=== PATIENT | male | born 1955 | race Caucasian/White ===

== ENCOUNTER 2020-12-03 23:03 | Inpatient (IN) | payer OTHER, MEDICARE ==
--- NOTE | 2020-12-03 23:13 | ED ---
Chest Pain HPI - General Stated Complaint: Chest Pain Time Seen by Provider: 12/03/20 23:07 Source: RN notes reviewed, old records reviewed Limitations: no limitations - History of Present Illness Initial Comments: This is a 65-year-old male DF for evaluation patient Dese for evaluation regards to chest pain. Patient coming in for chest pain as a transfer for non-ST elevated heart attack. Patient does have elevated troponin at outside facility and transferred to our hospital for further evaluation management. He does have history of [place] chest pain currently MD Complaint: chest pain -: hour(s) Onset: during rest, during exertion Pain Location: substernal, left chest Pain Radiation: LUE Severity: moderate Severity scale (1-10): 6 Quality: tightness, heaviness Consistency: constant Improves With: nothing Worsens With: nothing Anginal Symptoms: dyspnea Other Symptoms: palpitations Treatments Prior to Arrival: none - Related Data Home Medications Medication Instructions Recorded Confirmed Aspirin/Acetaminophen/Caffeine 2 tab PO BID 12/03/20 12/03/20 [Excedrin Extra Strength Caplet] Losartan(Unknown Dose) 1 tab PO DAILY 12/03/20 12/03/20 Pramipexole(Unknown Dose) 0.5 tab PO HS 12/03/20 12/03/20 traMADol HCL 50 mg PO HS 12/03/20 12/03/20 traMADol HCL [Ultram] 100 mg PO DAILY 12/03/20 12/03/20 Allergies Allergy/AdvReac Type Severity Reaction Status Date / Time No Known Allergies Allergy Verified 12/03/20 23:29 Review of Systems ROS Statement: Those systems with pertinent positive or pertinent negative responses have been documented in the HPI. ROS Other: All systems not noted in ROS Statement are negative. General Exam General appearance: alert, in no apparent distress Head exam: Present: atraumatic, normocephalic, normal inspection Eye exam: Present: normal appearance, PERRL, EOMI. Absent: scleral icterus, conjunctival injection, periorbital swelling ENT exam: Present: normal exam, mucous membranes moist Neck exam: Present: normal inspection. Absent: tenderness, meningismus, lymphadenopathy Respiratory exam: Present: normal lung sounds bilaterally. Absent: respiratory distress, wheezes, rales, rhonchi, stridor Cardiovascular Exam: Present: regular rate, normal rhythm, normal heart sounds. Absent: systolic murmur, diastolic murmur, rubs, gallop, clicks GI/Abdominal exam: Present: soft, normal bowel sounds. Absent: distended, tenderness, guarding, rebound, rigid Extremities exam: Present: normal inspection, full ROM, normal capillary refill. Absent: tenderness, pedal edema, joint swelling, calf tenderness Back exam: Present: normal inspection Neurological exam: Present: alert, oriented X3, CN II-XII intact Psychiatric exam: Present: normal affect, normal mood Skin exam: Present: warm, dry, intact, normal color. 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 Critical Care Time Critical Care Time: Yes Total Critical Care Time: 31 Disposition Clinical Impression: Acute non-ST elevation myocardial infarction (NSTEMI) Disposition: ADMITTED IP TO THIS HOSP Condition: Serious Is patient prescribed a controlled substance at d/c from ED?: No Referrals: Jose Valente DO [Primary Care Provider] - 1-2 days
[2020-12-04] MEDS ORDERED: NITROGLYCERIN SL TABS 0.4 MG TAB SUBLINGUAL PRN ×2 (00:50→10:23)
[2020-12-04] MEDS ORDERED: SODIUM CHLORIDE 0.9% 1,000 ML IV STA (00:50)
[2020-12-04] MEDS ORDERED: ONDANSETRON 4 MG/2 ML VIAL IVP STA (00:50)
[2020-12-04] MEDS ORDERED: MORPHINE SULFATE 4 MG/ML SYRINGE IV STA (00:50)
[2020-12-04] MEDS ORDERED: MORPHINE SULFATE 4 MG/ML SYRINGE IV PRN (00:50)
[2020-12-04] MEDS: SODIUM CHLORIDE 0.9% 1,000 ML IV SCH (01:05)
[2020-12-04] MEDS: HEPARIN SOD,PORK IN 0.45% NACL 25,000 UNIT in 0.45% NACL 1 250ML.BAG IV SCH (01:17)
[2020-12-04 01:21] LABS: Basophils % (A) 0 %; Eosinophils % (A) 0 %; HCT 47.4 % (39.0-53.0); HGB 16.4 gm/dL (13.0-17.5); Lymphocytes # (A) 1.6 k/uL (1.0-4.8); Lymphocytes % (A) 15 %; MCH 30.6 pg (25.0-35.0); MCHC 34.5 g/dL (31.0-37.0); MCV 88.6 fL (80.0-100.0); Mean Platelet Volume 7.8; Monocytes # (A) 0.5 k/uL (0-1.0); Monocytes % (A) 5 %; Neutrophils # (A) 8.6 k/uL (1.3-7.7); Neutrophils % (A) 79 %; Platelet Count 257 k/uL (150-450); RBC 5.35 m/uL (4.30-5.90); RDW 13.3 % (11.5-15.5); WBC 10.9 k/uL (3.8-10.6)
[2020-12-04 01:33] LABS: Albumin 4.1 g/dL (3.5-5.0); Calcium 9.1 mg/dL (8.4-10.2); Magnesium 2.4 mg/dL (1.6-2.3); Potassium 3.4 mmol/L (3.5-5.1); Total Bilirubin 0.7 mg/dL (0.2-1.3)
[2020-12-04 01:41] LABS: INR 1.1 (<1.2); Prothrombin Time 11.8 sec (9.0-12.0)
[2020-12-04 01:46] LABS: Partial Thromboplastin Time 194.7 sec (22.0-30.0)
--- NOTE | 2020-12-04 01:54 | XR ---
EXAMINATION TYPE: XR chest 2V DATE OF EXAM: 12/04/2020 COMPARISON: NONE HISTORY: Chest pain TECHNIQUE: 2 views FINDINGS: Heart and mediastinum are normal. Lungs are clear. Diaphragm is normal. Bony thorax is inta ct. There are chest leads. IMPRESSION: Normal chest.
[2020-12-04] MEDS ORDERED: ISOSORBIDE MONONITRATE ER 60 MG TAB.ER.24H PO ONE (03:26)
[2020-12-04] MEDS ORDERED: POTASSIUM CHLORIDE ER 20 MEQ TAB.ER PO STA (03:27)
--- NOTE | 2020-12-04 03:28 | P.HPIM ---
History of Present Illness H&P Date: 12/04/20 Patient is a 65 -year-old male with a PMH of coronary artery disease who presented to the emergency room as a transfer from [facility] where he presented earlier today with complaints of chest pain. The patient reports that he was in his usual state of health until about 7 PM tonight when he was out working on his yard and suddenly developed a substernal heartburn-like sensation. He reports associated shortness of breath and diaphoresis. The pain gradually worsened, 5 out of 10 at maximum intensity, at which time he ended up going to the hospital. He denied experiencing dizziness, fever, chills, cough. Denied lower extremity swelling or pain. Denied weakness, numbness, tingling, visual disturbances, or headaches. He underwent an extensive evaluation in the emergency room laboratory evaluation remarkable for troponin I of 0.29, WBC count of 10.6, hemoglobin 17.5, platelets 291, sodium 137, potassium 3.5, chloride 102, CO2 27, AST 25, AST 37, glucose 131, BUN 12, and creatinine 1.3. EKGs at the facility revealed sinus rhythm at 78 bpm with PVCs along with poor R-wave progression. Chest x-ray revealed upper limit of normal heart size along with coarse bilateral perihilar lung markings. At time of interview, the patient reports that his pain had almost resolved, currently at a 1 out of 10. He denied any other active complaints. Review of systems: Pertinent positives and negatives as discussed in HPI, a complete review of systems was performed and all other systems are negative. Physical examination: General: non toxic, no distress, appears at stated age, obese Derm: no unusual rashes/lesions no unusual ecchymoses, warm, dry Head: atraumatic, normocephalic, symmetric Eyes: EOMI, no lid lag, anicteric sclera, pupils equal round reactive to light ENT: Nose and ears atraumatic, no thrush, no pharyngeal erythema Neck: No thyromegaly, no cervical lymphadenopathy, trachea midline, supple Mouth: no lip lesion, mucus membranes moist Cardiovascular: S1S2 reg, no murmur, positive posterior tibial pulse bilateral, no edema, capillary refill less than 2 seconds Lungs: CTA bilateral, no rhonchi, no rales , no accessory muscle use Abdominal: soft, nontender to palpation, no guarding, no appreciable organomegaly, normal bowel sounds Ext: no gross muscle atrophy, muscle strength 5 out of 5 in all 4 extremities grossly, no contractures, Neuro: CN II-XI grossly intact, light touch intact all 4 extremities, finger to nose within normal limits, Psych: Alert, oriented, appropriate affect Assessment/plan Non-ST elevation MA -Continue with heparin infusion and aspirin -Audiology consult -Trend troponin -Cardiac monitoring -Controlled blood pressure Leukocytosis -Likely due to acute stressor -No signs of active infection at this time Hypokalemia -Replace and monitor DVT prophylaxis -Heparin infusion The patient is admitted with an anticipated greater than 2 midnight stay for evaluation of NSTEMI CODE STATUS: Full Code Discussed with: Patient Anticipated discharge date: 2-[address]: Home A total of 40 minutes was spent on the care of this complex patient more than 50% of the time was spent in counseling and care coordination. Past Medical History Past Medical History: Chest Pain / Angina, Heart Failure, Hypertension, Myocardial Infarction ([place]) Additional Past Medical History / Comment(s): restless leg syndrome Last Myocardial Infarction Date:: "20 years ago" exact year unknown History of Any Multi-Drug Resistant Organisms: None Reported Past Surgical History: Heart Catheterization, Hernia Repair Additional Past Surgical History / Comment(s): multiple foot surgeries Past Anesthesia/Blood Transfusion Reactions: No Reported Reaction Past Psychological History: No Psychological Hx Reported Smoking Status: Vaper Past Alcohol Use History: None Reported Past Drug Use History: None Reported Additional Drug Use History / Comment(s): Use to smoke marijuana. Currently smokes vape everyday. Medications and Allergies Home Medications Medication Instructions Recorded Confirmed Type Aspirin/Acetaminophen/Caffeine 2 tab PO BID 12/03/20 12/03/20 History [Excedrin Extra Strength Caplet] Losartan(Unknown Dose) 1 tab PO DAILY 12/03/20 12/03/20 History Pramipexole(Unknown Dose) 0.5 tab PO HS 12/03/20 12/03/20 History traMADol HCL 50 mg PO HS 12/03/20 12/03/20 History traMADol HCL [Ultram] 100 mg PO DAILY 12/03/20 12/03/20 History Allergies Allergy/AdvReac Type Severity Reaction Status Date / Time No Known Allergies Allergy Verified 12/03/20 23:29 Physical Exam Vitals: Vital Signs Temp Pulse Pulse Resp BP BP Pulse Ox 12/04/20 01:47 98.2 F 62 18 182/94 100 12/04/20 01:30 71 17 158/89 99 12/04/20 01:04 71 16 128/77 100 12/04/20 00:10 69 17 116/73 100 12/03/20 23:22 69 12/03/20 23:04 98.1 F 60 18 145/89 97 Intake and Output 12/03/20 12/03/20 12/04/20 14:59 22:59 06:59 Intake Total 5.167 Balance 5.167 Intake: Intake, IV Titration 5.167 Amount Heparin Sod,Pork in 0.45% 5.167 NaCl 25,000 unit In 0.45 % NaCl 1 250ml.bag @ 8.48 UNITS/KG/HR 10.001 mls/ hr IV .Q[facility]H [facility] Rx#: [id number] Other: Weight 117.934 kg Results CBC & Chem 7: 12/04/20 01:04 12/04/20 01:04 Labs: Abnormal Lab Results - Last 24 Hours (Table) 12/04/20 12/04/20 12/04/20 Range/Units 01:04 01:04 01:04 WBC 10.9 H (3.8-10.6) k/uL Neutrophils # 8.6 H (1.3-7.7) k/uL APTT 194.7 H* (22.0-30.0) sec Potassium 3.4 L (3.5-5.1) mmol/L Glucose 118 H (74-99) mg/dL Magnesium 2.4 H (1.6-2.3) mg/dL Troponin I (0.000-0.034) ng/mL Lipase 414 H (23-300) U/L 12/04/20 Range/Units 01:04 WBC (3.8-10.6) k/uL Neutrophils # (1.3-7.7) k/uL APTT (22.0-30.0) sec Potassium (3.5-5.1) mmol/L Glucose (74-99) mg/dL Magnesium (1.6-2.3) mg/dL Troponin I 0.546 H* (0.000-0.034) ng/mL Lipase (23-300) U/L Thrombosis Risk Factor Assmnt - Choose All That Apply Each Factor Represents 1 point: Acute [place] Each Risk Factor Represents 2 Points: Age 61-74 years Other congenital or acquired thrombophilia - If yes, enter type in comment: No Thrombosis Risk Factor Assessment Total Risk Factor Score: 3 Thrombosis Risk Factor Assessment Level: Moderate Risk
[2020-12-04] MEDS ORDERED: POTASSIUM CHLORIDE ER 20 MEQ TAB.ER PO ONE (04:14)
[2020-12-04 05:37] LABS: HCT 47.1 % (39.0-53.0); HGB 15.6 gm/dL (13.0-17.5); MCH 29.7 pg (25.0-35.0); MCHC 33.2 g/dL (31.0-37.0); MCV 89.4 fL (80.0-100.0); Mean Platelet Volume 7.2; Platelet Count 242 k/uL (150-450); RBC 5.27 m/uL (4.30-5.90); RDW 13.7 % (11.5-15.5)
[2020-12-04] MEDS ORDERED: HEPARIN SODIUM,PORCINE 2,500 UNIT in SODIUM CHLORIDE 0.9% 250 ML IRRIGATION PRN (07:00)
[2020-12-04] MEDS ORDERED: HEPARIN SODIUM,PORCINE 10,000 UNIT in SODIUM CHLORIDE 0.9% 1,000 ML IRRIGATION PRN (07:00)
[2020-12-04] MEDS: METOPROLOL TARTRATE 25 MG TAB PO SCH ×2 (08:47→20:46)
[2020-12-04] MEDS: ATORVASTATIN 80 MG TAB PO SCH (08:47)
--- NOTE | 2020-12-04 09:29 | P.PN ---
Subjective Progress Note Date: 12/04/20 Patient was seen and evaluated by me this morning. He is feeling well and denies any chest pain. He is waiting for cardiology evaluation. No acute events overnight reported by nursing staff. Objective - Vital Signs Vital signs: Vital Signs Temp 98.2 F 12/04/20 01:47 Pulse 62 12/04/20 04:00 Resp 18 12/04/20 04:00 BP 159/85 12/04/20 04:00 Pulse Ox 100 12/04/20 07:38 Intake & Output 12/03/20 12/04/20 12/04/20 18:59 06:59 18:59 Intake Total 9.834 0 Balance 9.834 0 Weight 116.5 kg Intake: Intake, IV Titration 9.834 Amount Heparin Sod,Pork in 0.45% 9.834 NaCl 25,000 unit In 0.45 % NaCl 1 250ml.bag @ 8.48 UNITS/KG/HR 10.001 mls/ hr IV .Q24H [facility] Rx#: [id number] Oral 0 Other: # Voids 1 - Exam General: The patient is awake and alert, in no distress Eye: there is normal conjunctiva bilaterally. Neck: The neck is supple, there is no JVD. Cardiovascular: Normal S1-S2, no S3-S4, no murmurs. Respiratory: Lungs clear to auscultation bilaterally Gastrointestinal: Abdomen is soft, nontender Musculoskeletal: There is no pedal edema. Neurological:. Speech is normal. Skin: Skin is warm and dry - Labs CBC & Chem 7: 12/04/20 04:27 12/04/20 04:27 Labs: Abnormal Lab Results - Last 24 Hours (Table) 12/04/20 12/04/20 12/04/20 Range/Units 01:04 01:04 01:04 WBC 10.9 H (3.8-10.6) k/uL Neutrophils # 8.6 H (1.3-7.7) k/uL APTT 194.7 H* (22.0-30.0) sec Potassium 3.4 L (3.5-5.1) mmol/L Glucose 118 H (74-99) mg/dL Magnesium 2.4 H (1.6-2.3) mg/dL Troponin I (0.000-0.034) ng/mL Lipase 414 H (23-300) U/L 12/04/20 12/04/20 12/04/20 Range/Units 01:04 04:27 04:27 WBC (3.8-10.6) k/uL Neutrophils # (1.3-7.7) k/uL APTT (22.0-30.0) sec Potassium (3.5-5.1) mmol/L Glucose 114 H (74-99) mg/dL Magnesium (1.6-2.3) mg/dL Troponin I 0.546 H* 2.540 H* (0.000-0.034) ng/mL Lipase (23-300) U/L 12/04/20 Range/Units 07:40 WBC (3.8-10.6) k/uL Neutrophils # (1.3-7.7) k/uL APTT (22.0-30.0) sec Potassium (3.5-5.1) mmol/L Glucose (74-99) mg/dL Magnesium (1.6-2.3) mg/dL Troponin I 4.140 H* (0.000-0.034) ng/mL Lipase (23-300) U/L Assessment and Plan Assessment: This is a 65-year-old male with past medical history noted below who presented to the emergency room with chest pain. Patient was evaluated at [facility] and transferred to our facility for cardiology evaluation. Below is a list of his medical problems. 1. Non-ST elevation myocardial infarction, started on full dose aspirin and IV heparin drip. I added Lipitor and metoprolol to his regimen. Awaiting cardiology evaluation. Possible left heart catheterization today. Echocardiogram ordered. 2. History of coronary artery disease, reported by patient on left heart catheterization 15 years ago 3. Essential hypertension, blood pressure within acceptable range. Resume home dose of losartan 50 mg daily tomorrow. Hold off on hydrochlorothiazide for now 4. Hypokalemia, replaced. We will continue to monitor closely 5. Leukocytosis, resolved. mostly reactive
[2020-12-04] MEDS ORDERED: ASPIRIN 325 MG TAB PO STA (10:23)
[2020-12-04] MEDS ORDERED: ALPRAZolam 0.25 MG TAB PO PRN (10:23)
[2020-12-04] MEDS ORDERED: ATORVASTATIN 80 MG TAB PO STA (10:23)
[2020-12-04] MEDS ORDERED: SODIUM CHLORIDE 0.9% 1,000 ML in EMPTY BAG 1 BAG IV ONE (10:23)
[2020-12-04] MEDS ORDERED: IV FLUID CONTINUATION 1,000 ML IV ONE (10:47)
[2020-12-04] MEDS ORDERED: VERAPAMIL 2.5 MG/ML 2 ML AMP ONE (10:48)
[2020-12-04] MEDS ORDERED: HEPARIN SODIUM 1,000 UN/ML (10ML VL) ONE (10:49)
[2020-12-04] MEDS ORDERED: LIDOCAINE 1% INJ 10MG/ML (20 ML MDV) ONE (10:49)
[2020-12-04] MEDS ORDERED: HEPARIN SODIUM,PORCINE 30 ML 30 ML ONE (11:08)
--- NOTE | 2020-12-04 11:13 | P.CRDCN ---
History of Present Illness Consult date: 12/04/20 History of present illness: HISTORY OF PRESENT ILLNESS: This is a 65-year-old male with a past medical history significant for previous myocardial infarction without stenting and hypertension. Patient does not follow with a recreational resort manager (states it has been over 10 years since he saw a recreational resort manager). We have been asked to see the patient in consultation for chest pain. Patient examined at the bedside. Patient initially presented to [facility] secondary to chest pain. Patient reports he was outside working in his yard when he began having chest pain. He describes the pain as feeling like a heartburn sensation. He denies any radiation of the pain. He reports feeling short of breath and diaphoretic at the time. He states he went across the street to his friend who is a gmat tutor who recommended he go to the hospital for further evaluation. At the time of examination, patient denies chest pain or pressure. EKG reveals sinus mechanism with Q waves in inferior leads and septal leads Chest xray negative for acute process Laboratory data: WBC 8.0. Hemoglobin 15.6. Platelet count 242. Sodium 139. Potassium 4.0. BUN 12. Creatinine 1.03. Magnesium 2.4. BNP 198. Troponin 0.546. 2.540. 4.140. Current home cardiac medications include losartan-hydrochlorothiazide 50-12.5mg daily REVIEW OF SYSTEMS: At the time of my exam: CONSTITUTIONAL: Denies fever or chills. HEENT: Denies blurred vision, vision changes, or eye pain. Denies hemoptysis CARDIOVASCULAR: Denies chest pain. Denies orthopnea. Denies PND. Denies palpitations RESPIRATORY: Denies shortness of breath. GASTROINTESTINAL: Denies abdominal pain. Denies nausea or vomiting. HEMATOLOGIC: Denies bleeding disorders. GENITOURINARY: Denies any blood in urine. SKIN: Denies pruitis. Denies rash. PHYSICAL EXAM: VITAL SIGNS: Reviewed. GENERAL: Well-developed in no acute distress. HEENT: Head is normocephalic. Pupils are equal, round. Sclerae anicteric. Mucous membranes of the mouth are moist. Neck supple. No JVD or thyromegaly LUNGS: Respirations even and unlabored. Lungs essentially clear to auscultation bilaterally. HEART: Regular rate and rhythm. S1 and S2 heard. ABDOMEN: Soft. Nondistended. Nontender. EXTREMITIES: Normal range of motion. No clubbing or cyanosis. Peripheral puls es intact. No lower extremity edema NEUROLOGIC: Awake and alert. Oriented x 3. ASSESSMENT: Non-STEMI History of coronary artery disease Hypertension PLAN: Obtain 2-D echo to assess cardiac structure and function Continue heparin drip Continue current cardiac medications including aspirin, Lipitor, metoprolol, and losartan Patient to undergo cardiac cath today with Dr. Glasgow Nurse practitioner note has been reviewed by physician. Signing provider agrees with the documented findings, assessment, and plan of care. Past Medical History Past Medical History: Chest Pain / Angina, Heart Failure, Hypertension, Myocardial Infarction ([place]) Additional Past Medical History / Comment(s): restless leg syndrome Last Myocardial Infarction Date:: "20 years ago" exact year unknown History of Any Multi-Drug Resistant Organisms: None Reported Past Surgical History: Heart Catheterization, Hernia Repair Additional Past Surgical History / Comment(s): multiple foot surgeries Past Anesthesia/Blood Transfusion Reactions: No Reported Reaction Past Psychological History: No Psychological Hx Reported Smoking Status: Vaper Past Alcohol Use History: None Reported Past Drug Use History: None Reported Additional Drug Use History / Comment(s): Use to smoke marijuana. Currently smokes vape everyday. Medications and Allergies Home Medications Medication Instructions Recorded Confirmed Type Aspirin/Acetaminophen/Caffeine 2 tab PO BID 12/03/20 12/03/20 History [Excedrin Extra Strength Caplet] traMADol HCL 50 mg PO HS 12/03/20 12/03/20 History traMADol HCL [Ultram] 100 mg PO DAILY 12/03/20 12/03/20 History Losartan-Hctz 50-12.5 mg [Hyzaar 1 tab PO DAILY 12/04/20 12/04/20 History 50-12.5] Pramipexole [Mirapex] 0.5 mg PO HS 12/04/20 12/04/20 History Allergies Allergy/AdvReac Type Severity Reaction Status Date / Time No Known Allergies Allergy Verified 12/03/20 23:29 Physical Exam Vitals: Vital Signs Temp Pulse Pulse Resp BP BP Pulse Ox 12/04/20 08:00 98.4 F 62 16 130/72 95 12/04/20 07:38 100 12/04/20 04:00 62 18 159/85 98 12/04/20 01:47 98.2 F 62 18 182/94 100 12/04/20 01:30 71 17 158/89 99 12/04/20 01:04 71 16 128/77 100 12/04/20 00:10 69 17 116/73 100 12/03/20 23:22 69 12/03/20 23:04 98.1 F 60 18 145/89 97 Intake and Output 12/03/20 12/04/20 12/04/20 22:59 06:59 14:59 Intake Total 9.834 0 Balance 9.834 0 Intake: Intake, IV Titration 9.834 Amount Heparin Sod,Pork in 0.45% 9.834 NaCl 25,000 unit In 0.45 % NaCl 1 250ml.bag @ 8.48 UNITS/KG/HR 10.001 mls/ hr IV .Q24H [facility] Rx#: [id number] Oral 0 Other: Voiding Method Toilet # Voids 1 Weight 116.5 kg Results 12/04/20 04:27 12/04/20 04:27 Cardiac Enzymes 12/04/20 12/04/20 12/04/20 Range/Units 01:04 01:04 04:27 AST 36 (17-59) U/L Troponin I 0.546 H* 2.540 H* (0.000-0.034) ng/mL 12/04/20 Range/Units 07:40 AST (17-59) U/L Troponin I 4.140 H* (0.000-0.034) ng/mL Coagulation 12/04/20 12/04/20 Range/Units 01:04 10:17 PT 11.8 (9.0-12.0) sec APTT 194.7 H* 24.8 (22.0-30.0) sec CBC 12/04/20 12/04/20 Range/Units 01:04 04:27 WBC 10.9 H 8.0 (3.8-10.6) k/uL RBC 5.35 5.27 (4.30-5.90) m/uL Hgb 16.4 15.6 (13.0-17.5) gm/dL Hct 47.4 47.1 (39.0-53.0) % Plt Count 257 242 (150-450) k/uL Comprehensive Metabolic Panel 12/04/20 12/04/20 Range/Units 01:04 04:27 Sodium 139 139 (137-145) mmol/L Potassium 3.4 L 4.0 (3.5-5.1) mmol/L Chloride 105 105 (98-107) mmol/L Carbon Dioxide 25 28 (22-30) mmol/L BUN 13 12 (9-20) mg/dL Creatinine 1.04 1.03 (0.66-1.25) mg/dL Glucose 118 H 114 H (74-99) mg/dL Calcium 9.1 9.0 (8.4-10.2) mg/dL AST 36 (17-59) U/L ALT 36 (4-49) U/L Alkaline Phosphatase 83 (38-126) U/L Total Protein 7.0 (6.3-8.2) g/dL Albumin 4.1 (3.5-5.0) g/dL Current Medications Generic Name Dose Route Start Last Admin Trade Name Freq PRN Reason Stop Dose Admin Alprazolam 0.25 mg 12/04/20 10:23 Alprazolam 0.25 Mg Tab PO Q6HR PRN Mild Anxiety Alprazolam 0.5 mg 12/04/20 10:23 Alprazolam 0.5 Mg Tab PO Q6HR PRN Moderate Anxiety Aspirin 325 mg 12/05/20 09:00 Aspirin 325 Mg Tab PO DAILY [facility] Atorvastatin Calcium 80 mg 12/04/20 09:00 12/04/20 08:47 Atorvastatin 80 Mg Tab PO 80 mg DAILY [facility] Administration Sodium Chloride 1,000 mls @ 100 mls/hr 12/04/20 00:50 12/04/20 03:51 Saline 0.9% IV 12/04/20 10:49 100 mls/hr .Q10H [facility] Administration Sodium Chloride 1,000 mls @ 20 mls/hr 12/04/20 01:00 12/04/20 01:05 Saline 0.9% IV Not Given .Q24H [facility] Heparin Sodium/Sodium Chloride 250 mls @ 10.001 mls/hr 12/04/20 01:00 12/04/20 04:25 25,000 unit/ Sodium Chloride IV 5.48 units/kg/hr .Q24H [facility] 6.463 mls/hr Titration Protocol 8.48 UNITS/KG/HR Sodium Chloride 1,000 ml/ IV 1,000 mls @ 116.5 mls/hr 12/04/20 10:23 12/04/20 10:32 Solution IV 12/04/20 18:58 116.5 mls/hr .Q8H36M ONE Administration 1 ML/KG/HR Heparin Sodium (Porcine) 10, 1,001 mls @ 999 mls/hr 12/04/20 07:00 000 unit/ Sodium Chloride IRRIGATION 12/04/20 20:00 ONCE PRN INTRA-OP Heparin Sodium (Porcine) 2,500 250.5 mls @ 250 mls/hr 12/04/20 07:00 unit/ Sodium Chloride IRRIGATION 12/04/20 20:00 ONCE PRN INTRA-OP Losartan Potassium 50 mg 12/05/20 09:00 Losartan 50 Mg Tab PO DAILY [facility] Metoprolol Tartrate 25 mg 12/04/20 09:00 12/04/20 08:47 Metoprolol Tartrate 25 Mg Tab PO 25 mg BID [facility] Administration Morphine Sulfate 4 mg 12/04/20 00:50 Morphine Sulfate 4 Mg/Ml Syringe IV Q4HR PRN Chest Pain Nitroglycerin 0.4 mg 12/04/20 00:50 Nitroglycerin Sl Tabs 0.4 Mg Tab SUBLINGUAL Q5M PRN Chest Pain Intake and Output 12/03/20 12/04/20 12/04/20 22:59 06:59 14:59 Intake Total 9.834 0 Balance 9.834 0 Intake: Intake, IV Titration 9.834 Amount Heparin Sod,Pork in 0.45% 9.834 NaCl 25,000 unit In 0.45 % NaCl 1 250ml.bag @ 8.48 UNITS/KG/HR 10.001 mls/ hr IV .Q24H [facility] Rx#: [id number] Oral 0 Other: Voiding Method Toilet # Voids 1 Weight 116.5 kg 12/04/20 04:27 12/04/20 04:27
[2020-12-04] MEDS ORDERED: fentaNYL (PF) 50 MCG/ML 2 ML AMP ONE (11:15)
[2020-12-04] MEDS ORDERED: MIDAZOLAM 2 MG/2 ML VIAL IV ONE (11:17)
[2020-12-04] MEDS ORDERED: fentaNYL (PF) 50 MCG/ML 2 ML AMP IV ONE (11:18)
[2020-12-04] MEDS ORDERED: HYDROmorphone 1 MG/ML 1 ML SYRINGE ONE (11:22)
[2020-12-04] MEDS ORDERED: HYDROmorphone 1 MG/ML 1 ML SYRINGE IVP ONE (11:24)
[2020-12-04] MEDS ORDERED: VERAPAMIL SYRINGE (5 MG/10 ML) INTRAARTER ONE (11:26)
[2020-12-04] MEDS ORDERED: LIDOCAINE 1% INJ 10MG/ML (20 ML MDV) SQ ONE (11:26)
[2020-12-04] MEDS ORDERED: IOPAMIDOL-370 125ML BTL INJ ONE (11:39)
[2020-12-04] MEDS ORDERED: SODIUM CHLORIDE 0.9% 1,000 ML IV SCH (11:45)
[2020-12-04] MEDS ORDERED: RX INFO: IV CONTRAST WAS GIVEN 1 EACH MISC MISCELLANE PRN (11:45)
--- NOTE | 2020-12-04 12:43 | CC ---
CARDIAC CATHETERIZATION REPORT DATE OF SERVICE: 12/04/2020 PERFORMING PHYSICIAN: Ankur Glasgow MD. PROCEDURE PERFORMED: 1. Selective right and left coronary angiogram. 2. Left heart catheterization. INDICATION: This is a 65-year-old gentleman with known history of coronary artery disease as well as hypertension and dyslipidemia who was transferred from [facility] complaining of chest discomfort. He was ruled in for acute [id number] myocardial infarction. Because of that, heart catheterization was advised. APPROACH: Right radial artery. COMPLICATION: None. LEVEL OF SEDATION: Moderate with sedation length of 20 minutes. PROCEDURE DESCRIPTION: After obtaining an informed consent, the patient was brought to the cardiac cardiac cath technician. The right radial artery was cannulated using micropuncture technique, the micropuncture wire passed easily. Then I placed a 6-Georgian sheath at the right radial artery. Selective right and left coronary angiogram performed with JR4 and JL3.5 catheters. Left heart catheterization was performed using 5-Georgian pigtail catheter. The procedure was completed without any complication. Please note that the patient was given 2 mg of verapamil IA at the beginning of the procedure. SELECTIVE CORONARY ANGIOGRAM: 1. The right coronary artery is a large caliber vessel and it is a dominant vessel. The RCA is chronically occluded and fills by collateral from the left coronary system. The RCA is calcified. 2. The left main is a large caliber vessel. The left main is calcified with distal lesion that appeared to be in the range of 30% to 40% was identified mostly on the GRIER cranial view. 3. The left circumflex is a large caliber vessel. The ostial left circumflex has a lesion that appeared to be in the range of 70% to 80%. The proximal circ after that has mild disease only and gives rise into the OM branch which appeared to be angiographically normal. The mid left circumflex has mild disease only and gives rise into a second OM branch which appeared to have mild disease only as well. 4. The ramus intermedius is a large caliber vessel. The ostial ramus has mild disease only. The proximal ramus has also mild to moderate disease and the ramus distally appeared to be angiographically normal. 5. The LAD. The ostial LAD has a lesion appeared to be in the range of 80% to 90% which was identified mostly on the ROMANIAN caudal view. The proximal LAD after that has a thrombotic lesion that appeared to be in the range of 80% to 90% and the mid and distal LAD appeared to be angiographically normal. CONCLUSION: 1. Calcified right and left coronary system. 2. Chronic total occlusion of the RCA. The RCA is a large caliber vessel. The RCA fills by bridging collaterals from the left coronary system. 3. Calcified left main with disease distally that appeared to be in the range of 40% to 50%. 4. Severe disease involving the ostial left circumflex coronary system. 5. Severe disease involving the ostial and proximal left anterior descending artery. POSTPROCEDURE MANAGEMENT: 1. Given the above anatomy, I did advise the patient to be evaluated by cardiothoracic surgeon for evaluation of coronary artery bypass grafting. 2. Continue maximized medical treatment including anti-platelet with aspirin as well as high-intensity statin, as well as anti-ischemic medication. 3. Obtain an echocardiogram to establish LV function. The LV seems dilated under fluoroscopy. 4. Follow up with the patient. MMMARIE / MARVINN: [id number] /
--- NOTE | 2020-12-04 14:59 | P.GSCN ---
<Reji Abdul - Last Filed: 12/04/20 14:59> History of Present Illness Consult date: 12/04/20 Reason for Consult: Symptomatic multivessel coronary artery disease, non-ST elevated myocardial inf arction this admission Requesting physician: Ankur Glasgow History of present illness: This is a 65-year-old gentleman who is followed by the [place] [facility] for his primary care service. The patient reports she does not follow with a medical legal investigator on a regular basis. He has a past medical history significant for hypertension, hyperlipidemia, previous history of myocardial infarction around 20 years ago without any previous stent history, daily marijuana use with vaping and remote history of smoking dependence which he quit over 2 years ago. The patient reports he was outside gardening and developed some chest tightness with a burning sensation which radiated to his jaw. He also reports that with this chest tightness he became diaphoretic. He denies any complaints of nausea, vomiting, orthopnea, shortness of breath, chills, fever, dizziness, presyncope or syncope. He presented to his neighbor's house who is a roof truss machine tender for assistance and was subsequently taken to [facility] for further evaluation and treatment recommendations. The patient was found to have some elevated troponins and was transferred to [facility] to be further evaluated. In the emergency department his WBC count was 8.0, hemoglobin 15.6, platelets 242, sodium 139, potassium 4.0, BUN 12, creatinine 1.03, magnesium 2.4, lipase 414 and he had positive serial troponins as high as 4.140. A 12-lead EKG was completed which showed normal sinus rhythm with Q waves in his inferior leads and septal leads with a heart rate of 65 BPM. A c hest x-ray was also completed which showed a normal chest. Due to the patient's presenting symptoms and elevated troponins a consult was placed to cardiology and the patient was recommended to undergo a cardiac catheterization and 2-D echocardiogram. At this time the 2-D echocardiogram report remains pending. The patient did undergo a cardiac catheterization today which demonstrated a 30- 40% stenosis to his left main coronary artery, a 70-80% stenosis to his ostial circumflex coronary artery, an 80-90% stenosis to his ostial left anterior descending coronary artery, an 80-90% stenosis to his mid left anterior descending coronary artery and a chronically occluded right coronary artery. Th e findings were discussed with the patient by Dr. Glasgow and a consult was placed to Dr. Bruno Driver from cardiothoracic surgery for further evaluation and treatment recommendations including myocardial revascularization surgery. Review of Systems A 14 point review of systems was completed and was negative except as mentioned in the HPI. Past Medical History Past Medical History: Chest Pain / Angina, Heart Failure, Hyperlipidemia, Hypertension, Myocardial Infarction ([place]) Additional Past Medical History / Comment(s): restless leg syndrome Last Myocardial Infarction Date:: "20 years ago" exact year unknown History of Any Multi-Drug Resistant Organisms: None Reported Past Surgical History: Heart Catheterization, Hernia Repair Additional Past Surgical History / Comment(s): multiple foot surgeries, history of colonoscopy with polyp removal Past Anesthesia/Blood Transfusion Reactions: No Reported Reaction Past Psychological History: No Psychological Hx Reported Smoking Status: Vaper Past Alcohol Use History: None Reported Past Drug Use History: Marijuana Additional Drug Use History / Comment(s): Use to smoke marijuana. Currently smokes vape everyday. Medications and Allergies Home Medications Medication Instructions Recorded Confirmed Type Aspirin/Acetaminophen/Caffeine 2 tab PO BID 12/03/20 12/03/20 History [Excedrin Extra Strength Caplet] traMADol HCL 50 mg PO HS 12/03/20 12/03/20 History traMADol HCL [Ultram] 100 mg PO DAILY 12/03/20 12/03/20 History Losartan-Hctz 50-12.5 mg [Hyzaar 1 tab PO DAILY 12/04/20 12/04/20 History 50-12.5] Pramipexole [Mirapex] 0.5 mg PO HS 12/04/20 12/04/20 History Allergies Allergy/AdvReac Type Severity Reaction Status Date / Time No Known Allergies Allergy Verified 12/03/20 23:29 Surgical - Exam Vital Signs Temp Pulse Resp BP Pulse Ox 98.1 F 60 18 145/89 97 12/03/20 23:04 12/03/20 23:04 12/03/20 23:04 12/03/20 23:04 12/03/20 23:04 - General well developed, well nourished, no distress, no pain, obese - Eyes PERRL, normal ocular movement, no icteric - ENT normal pinna, normal nares, normal mucosa, no hearing loss, no congestion, poor [facility] - Neck Neck is supple, no lymphadenopathy. Negative for bruit. no masses, no bruits, trachea midline, no venous distension - Respiratory Lung sounds essentially clear throughout. Respirations are symmetrical and nonlabored. - Cardiovascular Regular rhythm and bradycardic rate. S1 and S2 present, negative for S3, gallop or murmur. No edema present. Peripheral pulses palpable. - Abdomen Abdomen: soft, non tender, bowel sounds (Active bowel sounds to all 4 abdominal quadrants.), no organomegaly, no masses, no guarding, no rigid, no distended - Integumentary no rash, no growths, no abnormal pigmentation - Neurologic Cranial nerves II through XII intact. No focal deficits. normal coordination, normal sensation - Musculoskeletal Moves all 4 extremities with equal strength bilaterally. - Psychiatric oriented to time, oriented to person, oriented to place, speech is normal, memory intact Results - Labs 12/04/20 04:27 12/04/20 04:27 Abnormal Lab Results - Last 24 Hours (Table) 12/04/20 12/04/20 12/04/20 Range/Units 01:04 01:04 01:04 WBC 10.9 H (3.8-10.6) k/uL Neutrophils # 8.6 H (1.3-7.7) k/uL APTT 194.7 H* (22.0-30.0) sec Potassium 3.4 L (3.5-5.1) mmol/L Glucose 118 H (74-99) mg/dL Magnesium 2.4 H (1.6-2.3) mg/dL Troponin I (0.000-0.034) ng/mL Lipase 414 H (23-300) U/L 12/04/20 12/04/20 12/04/20 Range/Units 01:04 04:27 04:27 WBC (3.8-10.6) k/uL Neutrophils # (1.3-7.7) k/uL APTT (22.0-30.0) sec Potassium (3.5-5.1) mmol/L Glucose 114 H (74-99) mg/dL Magnesium (1.6-2.3) mg/dL Troponin I 0.546 H* 2.540 H* (0.000-0.034) ng/mL Lipase (23-300) U/L 12/04/20 Range/Units 07:40 WBC (3.8-10.6) k/uL Neutrophils # (1.3-7.7) k/uL APTT (22.0-30.0) sec Potassium (3.5-5.1) mmol/L Glucose (74-99) mg/dL Magnesium (1.6-2.3) mg/dL Troponin I 4.140 H* (0.000-0.034) ng/mL Lipase (23-300) U/L Diabetes panel 12/04/20 12/04/20 Range/Units 01:04 04:27 Sodium 139 139 (137-145) mmol/L Potassium 3.4 L 4.0 (3.5-5.1) mmol/L Chloride 105 105 (98-107) mmol/L Carbon Dioxide 25 28 (22-30) mmol/L BUN 13 12 (9-20) mg/dL Creatinine 1.04 1.03 (0.66-1.25) mg/dL Glucose 118 H 114 H (74-99) mg/dL Calcium 9.1 9.0 (8.4-10.2) mg/dL AST 36 (17-59) U/L ALT 36 (4-49) U/L Alkaline Phosphatase 83 (38-126) U/L Total Protein 7.0 (6.3-8.2) g/dL Albumin 4.1 (3.5-5.0) g/dL Calcium panel 12/04/20 12/04/20 Range/Units 01:04 04:27 Calcium 9.1 9.0 (8.4-10.2) mg/dL Albumin 4.1 (3.5-5.0) g/dL Pituitary panel 12/04/20 12/04/20 Range/Units 01:04 04:27 Sodium 139 139 (137-145) mmol/L Potassium 3.4 L 4.0 (3.5-5.1) mmol/L Chloride 105 105 (98-107) mmol/L Carbon Dioxide 25 28 (22-30) mmol/L BUN 13 12 (9-20) mg/dL Creatinine 1.04 1.03 (0.66-1.25) mg/dL Glucose 118 H 114 H (74-99) mg/dL Calcium 9.1 9.0 (8.4-10.2) mg/dL Adrenal panel 12/04/20 12/04/20 Range/Units 01:04 04:27 Sodium 139 139 (137-145) mmol/L Potassium 3.4 L 4.0 (3.5-5.1) mmol/L Chloride 105 105 (98-107) mmol/L Carbon Dioxide 25 28 (22-30) mmol/L BUN 13 12 (9-20) mg/dL Creatinine 1.04 1.03 (0.66-1.25) mg/dL Glucose 118 H 114 H (74-99) mg/dL Calcium 9.1 9.0 (8.4-10.2) mg/dL Total Bilirubin 0.7 (0.2-1.3) mg/dL AST 36 (17-59) U/L ALT 36 (4-49) U/L Alkaline Phosphatase 83 (38-126) U/L Total Protein 7.0 (6.3-8.2) g/dL Albumin 4.1 (3.5-5.0) g/dL - Imaging Chest x-ray: report reviewed, image reviewed Additional studies: 2-D echocardiogram and cardiac catheterization films reviewed by Dr. Bruno Driver. Assessment and Plan Assessment: 1. Symptomatic multivessel coronary artery disease 2. Non-ST elevated myocardial infarction this admission 3. History of hypertension 4. History of hyperlipidemia 5. History of coronary artery disease with myocardial infarction around 20 years ago 6. Remote history of nicotine dependence with smoking around 2 years ago 7. Daily marijuana use with vaping 8. Restless leg syndrome Plan: The patient was seen and examined at his bedside on the cardiac stepdown unit. His chart diagnostics were reviewed. The patient was seen and examined by Dr. Bruno Driver from cardiothoracic surgery. Preoperative teaching and pre operative testing has been initiated. Continue to maximize medical therapy with aspirin, statin and beta rj. Once the preoperative testing has been completed and obtained we will calculate an STS risk or which will be discussed with the patient. Once the patient is able to ambulate we will do a 5 m walk test with the patient. Medical management and other comorbidities per primary care service. More recommendations to follow based on patient's clinical course. Thank you Dr. Glasgow for this consult and we'll look for to working with you in the care of this patient. Time with Patient: Greater than 30 <Bruno Driver - Last Filed: 12/04/20 16:24> Surgical - Exam Vital Signs Temp Pulse Resp BP Pulse Ox 98.1 F 60 18 145/89 97 12/03/20 23:04 12/03/20 23:04 12/03/20 23:04 12/03/20 23:04 12/03/20 23:04 Results - Labs 12/04/20 04:27 12/04/20 04:27 Abnormal Lab Results - Last 24 Hours (Table) 12/04/20 12/04/20 12/04/20 Range/Units 01:04 01:04 01:04 WBC 10.9 H (3.8-10.6) k/uL Neutrophils # 8.6 H (1.3-7.7) k/uL APTT 194.7 H* (22.0-30.0) sec Potassium 3.4 L (3.5-5.1) mmol/L Glucose 118 H (74-99) mg/dL Magnesium 2.4 H (1.6-2.3) mg/dL Troponin I (0.000-0.034) ng/mL Lipase 414 H (23-300) U/L Ur Specific [place] (1.001-1.035) Urine Protein (Negative) 12/04/20 12/04/20 12/04/20 Range/Units 01:04 04:27 04:27 WBC (3.8-10.6) k/uL Neutrophils # (1.3-7.7) k/uL APTT (22.0-30.0) sec Potassium (3.5-5.1) mmol/L Glucose 114 H (74-99) mg/dL Magnesium (1.6-2.3) mg/dL Troponin I 0.546 H* 2.540 H* (0.000-0.034) ng/mL Lipase (23-300) U/L Ur Specific [place] (1.001-1.035) Urine Protein (Negative) 12/04/20 12/04/20 Range/Units 07:40 14:50 WBC (3.8-10.6) k/uL Neutrophils # (1.3-7.7) k/uL APTT (22.0-30.0) sec Potassium (3.5-5.1) mmol/L Glucose (74-99) mg/dL Magnesium (1.6-2.3) mg/dL Troponin I 4.140 H* (0.000-0.034) ng/mL Lipase (23-300) U/L Ur Specific [place] 1.050 H (1.001-1.035) Urine Protein Trace H (Negative) Diabetes panel 12/04/20 12/04/20 Range/Units 01:04 04:27 Sodium 139 139 (137-145) mmol/L Potassium 3.4 L 4.0 (3.5-5.1) mmol/L Chloride 105 105 (98-107) mmol/L Carbon Dioxide 25 28 (22-30) mmol/L BUN 13 12 (9-20) mg/dL Creatinine 1.04 1.03 (0.66-1.25) mg/dL Glucose 118 H 114 H (74-99) mg/dL Calcium 9.1 9.0 (8.4-10.2) mg/dL AST 36 (17-59) U/L ALT 36 (4-49) U/L Alkaline Phosphatase 83 (38-126) U/L Total Protein 7.0 (6.3-8.2) g/dL Albumin 4.1 (3.5-5.0) g/dL Calcium panel 12/04/20 12/04/20 Range/Units 01:04 04:27 Calcium 9.1 9.0 (8.4-10.2) mg/dL Albumin 4.1 (3.5-5.0) g/dL Pituitary panel 12/04/20 12/04/20 Range/Units 01:04 04:27 Sodium 139 139 (137-145) mmol/L Potassium 3.4 L 4.0 (3.5-5.1) mmol/L Chloride 105 105 (98-107) mmol/L Carbon Dioxide 25 28 (22-30) mmol/L BUN 13 12 (9-20) mg/dL Creatinine 1.04 1.03 (0.66-1.25) mg/dL Glucose 118 H 114 H (74-99) mg/dL Calcium 9.1 9.0 (8.4-10.2) mg/dL Adrenal panel 12/04/20 12/04/20 Range/Units 01:04 04:27 Sodium 139 139 (137-145) mmol/L Potassium 3.4 L 4.0 (3.5-5.1) mmol/L Chloride 105 105 (98-107) mmol/L Carbon Dioxide 25 28 (22-30) mmol/L BUN 13 12 (9-20) mg/dL Creatinine 1.04 1.03 (0.66-1.25) mg/dL Glucose 118 H 114 H (74-99) mg/dL Calcium 9.1 9.0 (8.4-10.2) mg/dL Total Bilirubin 0.7 (0.2-1.3) mg/dL AST 36 (17-59) U/L ALT 36 (4-49) U/L Alkaline Phosphatase 83 (38-126) U/L Total Protein 7.0 (6.3-8.2) g/dL Albumin 4.1 (3.5-5.0) g/dL Assessment and Plan Assessment: 65 yom w prev h/o [place] presents CP/NSTEMI w elevated trops. Cath shows severe 3 V CAD, echo preserved LV F/(x). Plan CABG this week. D/W patient, all questions [id number], cinformed consent obtained.
[2020-12-04 15:38] LABS: Appearance,Urine Clear (Clear); Bilirubin,Urine Negative (Negative); Blood,Urine Negative (Negative); Color,Urine Yellow; Glucose,Urine (UA) Negative (Negative); Ketones,Urine Negative (Negative); Leukocyte Esterase,Urine Negative (Negative); Nitrite,Urine Negative (Negative); Protein,Urine Trace (Negative); Urobilinogen,Urine <2.0 mg/dL (<2.0)
--- NOTE | 2020-12-04 15:47 | US ---
EXAMINATION TYPE: US carotid duplex BILAT DATE OF EXAM: 12/04/2020 COMPARISON: NONE CLINICAL HISTORY: Pre-Op Cardiac Surgery. Pre-Op CABG EXAM MEASUREMENTS: RIGHT: Peak Systolic Velocity (PSV) cm/sec ----- Right CCA: 107.3 ----- Right ICA: 148.0 ----- Right ECA: 2115.1 ICA/CCA ratio: 1.4 RIGHT: End Diastole cm/sec ----- Right CCA: 30.3 ----- Right ICA: 33.3 ----- Right ECA: 20.0 LEFT: Peak Systolic Velocity (PSV) cm/sec ----- Left CCA: 126.3 ----- Left ICA: 135.0 ----- Left ECA: 208.2 ICA/CCA ratio: 1.1 LEFT: End Diastole cm/sec ----- Left CCA: 28.0 ----- Left ICA: 34.9 ----- Left ECA: 6.0 VERTEBRALS (direction of flow): Right Vertebral: Antegrade Left Vertebral: Antegrade Rhythm: Normal Heterogeneous plaque bilaterally with slightly elevated velocities bilaterally IMPRESSION: No evidence for hemodynamically significant stenosis. Criteria for Assigning % of Stenosis / Diameter reduction (Estimation based on the indirect measurements of the internal carotid artery velocities (ICA PSV). 1. Normal (no stenosis)=ICA PSV < 125 cm/s: ratio < 2.0: ICA EDV<40 cm/s. 2. Less than 50% stenosis=ICA PSV < 125 cm/s: ratio < 2.0: ICA EDV<40 cm/s. 3. 50 to 69% stenosis=ICA PSV of 125 to 230 cm/s: ration 2.0 ? 4.0: ICA EDV 40-100 cm/s. 4. Greater than 70% stenosis to near occlusion= ICA PSV > 230 cm/s: ratio > 4.0: ICA EDV > 100 cm/s. 5. Near occlusion= ICA PSV velocities may be low or undetectable: variable ratio and ICA EDV. 6. Total occlusion=unable to detect flow.
[2020-12-04] MEDS: ALPRAZolam 0.5 MG TAB PO PRN (17:01)
--- NOTE | 2020-12-04 18:31 | ECHOF ---
Referral Reason:elevoponin MEASUREMENTS -------- HEIGHT: 182.9 cm WEIGHT: 117.9 kg BP: 159/85 IVSd: 1.4 cm (0.6 - 1.1) LVIDd: 4.2 cm (3.9 - 5.3) LVPWd: 1.4 cm (0.6 - 1.1) EDV(Teich): 80 ml IVSs: 1.6 cm LVIDs: 3.3 cm LVPWs: 1.6 cm %IVS Thck: 16 % ESV(Teich): 44 ml EF(Teich): 45 % %FS: 22 % SV(Teich): 36 ml LALs A4C: 4.8 cm LAAs A4C: 16.8 cm LAESV A-L A4C: 50 ml LAESV MOD A4C: 46 ml LALs A2C: 5.3 cm LAAs A2C: 19.8 cm LAESV A-L A2C: 63 ml LAESV MOD A2C: 60 ml LAESV(A-L): 59 ml LAESV Index (A-L): 24.66 ml/m Ao Diam: 3.0 cm (2.0 - 3.7) LA Diam: 4.2 cm (2.7 - 3.8) AV Cusp: 1.8 cm (1.5 - 2.6) EPSS: 0.2 cm MV E Arthur: 0.64 m/s MV DecT: 292 ms MV Dec Levy: 2.2 m/s MV A Arthur: 0.96 m/s MV E/A Ratio: 0.66 MV PHT: 85 ms TR Vmax: 1.24 m/s TR maxP.16 mmHg RAP: 5.00 mmHg RVSP: 11.16 mmHg MV EF SLOPE: 75.40 mm/s (70 - 150) MV EXCURSION: 21.48 mm (> 18.000) FINDINGS -------- Sinus rhythm. This was a technically adequate study. The left ventricular size is normal. There is moderate concentric left ventricular hypertrophy. O verall left ventricular systolic function is normal with, an EF between 55 - 60 %. Basal inferior L V wall motion is akinetic. Basal inferoseptal LV wall motion is akinetic. The right ventricle is normal in size. Normal LA size by volume 22+/-6 ml/m2. The right atrial size is normal. The aortic valve is trileaflet, and appears structurally normal. No aortic stenosis or regurgitation. Mild mitral regurgitation is present. Mild tricuspid regurgitation present. Right ventricular systolic pressure is normal at < 35 mmHg. There is no pulmonic regurgitation present. There is no pericardial effusion. CONCLUSIONS -------- 1. The left ventricular size is normal. 2. There is moderate concentric left ventricular hypertrophy. 3. Overall left ventricular systolic function is normal with, an EF between 55 - 60 %. 4. Basal inferior LV wall motion is akinetic. 5. Basal inferoseptal LV wall motion is akinetic. 6. The right ventricle is normal in size. 7. Normal LA size by volume 22+/-6 ml/m2. 8. The right atrial size is normal. 9. The aortic valve is trileaflet, and appears structurally normal. No aortic stenosis or regurgitati on. 10. Mild mitral regurgitation is present. 11. Mild tricuspid regurgitation present. 12. There is no pericardial effusion. INSIDE SALES TRAINER: Cherelle Massey RDCS
[2020-12-04 18:58] LABS: Chol/HDL Ratio 7.08; LDL Cholesterol,Calculated 122.4 mg/dL (0.0-131.0); VLDL Calculation 23.6 mg/dL (5.00-40.00)
[2020-12-04 19:18] LABS: Hemoglobin A1C 5.7 % (4.0-6.0)
[2020-12-04 20:36] LABS: Hepatitis A Antibody IgM Non-Reactive (Non-Reactive); Hepatitis B Core IgM Non-Reactive (Non-Reactive); Hepatitis B Surface Antigen Non-Reactive (Non-Reactive); Hepatitis C IgG Antibody Non-Reactive (Non-Reactive)
[2020-12-04] MEDS: MUPIROCIN 2% OINT 22 GM TUBE NASAL SCH (22:42)
[2020-12-05] MEDS ORDERED: HEPARIN SODIUM 1,000 UN/ML (10ML VL) IV ONE (00:39)
[2020-12-05] MEDS: SODIUM CHLORIDE 0.9% 1,000 ML IV SCH (05:02)
--- NOTE | 2020-12-05 08:00 | P.PN ---
Subjective Progress Note Date: 12/05/20 Principal diagnosis: Symptomatic multivessel coronary artery disease, NSTEMI this admission. Previous medical history of myocardial infarction approximately 20 years ago without intervention, hypertension, hyperlipidemia, previous tobacco dependence, daily marijuana vaping, restless leg syndrome, remote history of pneumonia as a child. Unvaccinated against Covid. The patient is currently laying in bed in no acute distress on the cardiac stepdown unit. Denies any chest pain or shortness of breath. He has been ambulatory in the hallway without difficulty. Remains on IV heparin. Patient met with Dr. Driver yesterday with plans for CABG on , no new questions at this time. Patient does express anxiety about pending surgery, no other new concerns. Objective - Vital Signs Vital signs: Vital Signs Temp 98.6 F 12/04/20 20:00 Pulse 63 12/05/20 04:00 Resp 18 12/05/20 04:00 BP 177/83 12/05/20 04:00 Pulse Ox 97 12/05/20 04:00 Intake & Output 12/04/20 12/05/20 12/05/20 18:59 06:59 18:59 Intake Total 623.696 61.006 Output Total 1160 Balance 623.696 -1098.994 Weight 118 kg Intake: IV 300 Intake, IV Titration 83.696 61.006 Amount Heparin Sod,Pork in 0.45% 83.696 61.006 NaCl 25,000 unit In 0.45 % NaCl 1 250ml.bag @ 8.48 UNITS/KG/HR 10.001 mls/ hr IV .Q24H [facility] Rx#: [id number] Oral 240 Output: Urine 1160 Other: Voiding Method Toilet # Voids 2 3 - Exam CONSTITUTIONAL: Appears comfortable, cooperative, no acute distress RESPIRATORY: Lungs sounds diminished bilaterally. Respirations even, nonlabored. Currently on room air with oxygen saturation 97%. Able to achieve 2000 mL on incentive spirometry. Strong cough. CARDIOVASCULAR: S1, S2 present. Regular rate and rhythm, sinus rhythm on telemetry. Sternum stable. Palpable peripheral pulses bilaterally. No edema present. No calf pain or tenderness noted. GASTROINTESTINAL: Abdomen soft, nontender, nondistended. Active bowel sounds present 4 quadrants. Tolerating diet. GENITOURINARY: Continues to void INTEGUMENTARY: Skin is warm and dry with evidence of good perfusion. NEUROLOGIC: Cranial nerves II through XII intact MUSKULOSKELETAL: Able to move all extremities, strength equal bilaterally, gait normal PSYCHIATRIC: Alert and oriented to person place and time, appropriate affect, intact judgment and insight - Labs CBC & Chem 7: 12/05/20 07:20 12/05/20 07:20 Labs: Abnormal Lab Results - Last 24 Hours (Table) 12/04/20 12/04/20 12/04/20 Range/Units 04:27 07:40 14:50 Troponin I 4.140 H* (0.000-0.034) ng/mL HDL Cholesterol 24.0 L (40.0-60.0) mg/dL Ur Specific [place] 1.050 H (1.001-1.035) Urine Protein Trace H (Negative) Microbiology - Last 24 Hours (Table) 12/04/20 14:50 Nasal Screen MRSA/MSSA - Preliminary Nasal Swab - Imaging and Cardiology Chest x-ray: report reviewed, image reviewed Heart catheterization films, echocardiogram films, EKG, carotid Dopplers, pulmonary function test reviewed Assessment and Plan Assessment: 1. Symptomatic multivessel coronary artery disease, NSTEMI this admission 2. History of myocardial infarction approximately 20 years ago without intervention 3. Hypertension 4. Hyperlipidemia, cholesterol 170, LDL 122 5. Previous tobacco dependence, FEV1 50% predicted 6. Daily marijuana vaping 7. Restless leg syndrome 8. Remote history of pneumonia as a child Plan: 1. Continue to maximize medical therapy with aspirin, statin, beta rj therapy 2. Encourage incentive spirometry use 3. Increase activity, ambulate as tolerated 4. Dr. Gilbert consulted for pulmonology clearance 5. Will calculate STS risk score and discuss with patient 6. Our plan is for off-pump myocardial revascularization with left internal mammary artery, endoscopic vein harvest, possible left radial artery harvest, possible left atrial appendage ligation on , 12/07/[address] Driver. 7. Continue preoperative teaching 8. Medical management of other comorbidities per primary care service 9. More recommendations to follow Time with Patient: Greater than 30
[2020-12-05 08:02] LABS: Basophils % (A) 0 %; Eosinophils # (A) 0.1 k/uL (0-0.7); Eosinophils % (A) 1 %; HCT 47.9 % (39.0-53.0); HGB 16.3 gm/dL (13.0-17.5); Lymphocytes # (A) 1.8 k/uL (1.0-4.8); Lymphocytes % (A) 20 %; MCH 30.3 pg (25.0-35.0); MCV 89.2 fL (80.0-100.0); Mean Platelet Volume 7.1; Monocytes # (A) 0.7 k/uL (0-1.0); Monocytes % (A) 7 %; Neutrophils # (A) 6.4 k/uL (1.3-7.7); Neutrophils % (A) 69 %; Platelet Count 221 k/uL (150-450); RBC 5.37 m/uL (4.30-5.90); RDW 13.4 % (11.5-15.5); WBC 9.2 k/uL (3.8-10.6)
[2020-12-05 08:10] LABS: Calcium 9.2 mg/dL (8.4-10.2); Potassium 4.1 mmol/L (3.5-5.1)
[2020-12-05] MEDS: HEPARIN SODIUM 1,000 UN/ML (10ML VL) IV PRN ×2 (08:25→17:11)
[2020-12-05] MEDS: METOPROLOL TARTRATE 25 MG TAB PO SCH ×2 (08:25→20:40)
[2020-12-05] MEDS: LOSARTAN 50 MG TAB PO SCH (08:25)
[2020-12-05] MEDS: ASPIRIN 81 MG PO SCH (08:25)
[2020-12-05] MEDS: ATORVASTATIN 80 MG TAB PO SCH (08:25)
[2020-12-05] MEDS: HEPARIN SOD,PORK IN 0.45% NACL 25,000 UNIT in 0.45% NACL 1 250ML.BAG IV SCH (08:33)
[2020-12-05] MEDS: MUPIROCIN 2% OINT 22 GM TUBE NASAL SCH ×2 (08:38→20:41)
[2020-12-05] MEDS ORDERED: ASPIRIN 325 MG TAB PO SCH (09:00)
[2020-12-05] MEDS: traMADol 50 MG TAB PO SCH ×2 (12:25→20:40)
--- NOTE | 2020-12-05 12:31 | P.CNPUL ---
History of Present Illness Consult date: 12/05/20 Requesting physician: Gris Humphrey Reason for consult: chest pain Chief complaint: Multivessel coronary artery disease History of present illness: This is a 65-year-old white male patient with past medical history of a myocardial infarction 20 years ago without intervention, hypertension, hyper lipidemia, previous history of smoking, in remission for last 2 years, does carry [id number] smoking history, currently vapes marijuana. Patient came into the hospital on 12/03/2020 for evaluation of chest pain. Patient came in to this facility as a transfer from an outside facility, he was diagnosed with non-ST elevated myocardial infarction. He had elevated troponins with first, second and third set at 0.546, 2.540, and 4.140. His EKG showed sinus bradycardia, with evidence of a septal infarct and inferior wall infarct of undetermined age. Echocardiogram showed mild concentric LVH, preserved LV function with an EF of 55-60%, basal inferior and inferolateral septal LV wall motion was akinetic. There was no aortic stenosis or regurgitation, and there was mild MR, mild TR, and PA pressure was less than 35 mmHg. Patient had a cardiac catheterization on 12/04/2020 which revealed chronic total occlusion of the RCA, calcified left main with disease distally in the range of 40-50%, severe disease involving the ostial left circumflex, and ostial and proximal LAD. Patient was referred to cardiothoracic surgery for evaluation of coronary artery bypass grafting. In the meantime he is on antiplatelet therapy with aspirin as well as high intensity statin, and he is on heparin infusion per weight-based protocol. Chest x-ray showed normal chest x-ray.patient was seen by Dr. Driver from CT surgery and his surgery is tentatively scheduled for , 12/07/2020. His at bedside FEV1 was in the order of 51% of predicted. He is not oxygen dependent at baseline. He is breathing comfortably. Remains pulse ox is 97%. Review of Systems All systems: negative Constitutional: Denies chills, Denies fever Eyes: denies blurred vision, denies pain Ears, nose, mouth and throat: Denies headache, Denies sore throat Cardiovascular: Reports chest pain, Denies shortness of breath Respiratory: Reports dyspnea, Denies cough Gastrointestinal: Denies abdominal pain, Denies diarrhea, Denies nausea, Denies vomiting Musculoskeletal: Denies myalgias Integumentary: Denies pruritus, Denies rash Neurological: Denies numbness, Denies weakness Psychiatric: Denies anxiety, Denies depression Endocrine: Denies fatigue, Denies weight change Past Medical History Past Medical History: Chest Pain / Angina, Heart Failure, Hyperlipidemia, Hyp ertension, Myocardial Infarction (MS) Additional Past Medical History / Comment(s): restless leg syndrome Last Myocardial Infarction Date:: "20 years ago" exact year unknown History of Any Multi-Drug Resistant Organisms: None Reported Past Surgical History: Heart Catheterization, Hernia Repair Additional Past Surgical History / Comment(s): multiple foot surgeries, history of colonoscopy with polyp removal Past Anesthesia/Blood Transfusion Reactions: No Reported Reaction Past Psychological History: No Psychological Hx Reported Smoking Status: Vaper Past Alcohol Use History: None Reported Past Drug Use History: Marijuana Additional Drug Use History / Comment(s): Use to smoke marijuana. Currently smokes vape everyday. Medications and Allergies Home Medications Medication Instructions Recorded Confirmed Type Aspirin/Acetaminophen/Caffeine 2 tab PO BID 12/03/20 12/03/20 History [Excedrin Extra Strength Caplet] traMADol HCL 50 mg PO HS 12/03/20 12/03/20 History traMADol HCL [Ultram] 100 mg PO DAILY 12/03/20 12/03/20 History Losartan-Hctz 50-12.5 mg [Hyzaar 1 tab PO DAILY 12/04/20 12/04/20 History 50-12.5] Pramipexole [Mirapex] 0.5 mg PO HS 12/04/20 12/04/20 History Allergies Allergy/AdvReac Type Severity Reaction Status Date / Time No Known Allergies Allergy Verified 12/03/20 23:29 Physical Exam Vitals: Vital Signs Temp Pulse Resp BP Pulse Ox 12/05/20 08:00 98.5 F 67 16 168/83 97 12/05/20 04:00 63 18 177/83 97 12/05/20 00:00 58 L 18 99/51 97 12/04/20 20:00 98.6 F 61 16 124/64 97 12/04/20 16:45 59 L 16 117/69 97 12/04/20 15:45 98.1 F 59 L 16 120/65 97 12/04/20 14:45 62 16 109/57 96 12/04/20 14:00 62 12/04/20 13:45 52 L 16 116/65 97 12/04/20 13:15 55 L 16 118/69 97 12/04/20 12:45 98.4 F 57 L 16 118/70 97 12/04/20 12:30 98.3 F 54 L 16 118/69 94 L Intake and Output 12/04/20 12/05/20 12/05/20 22:59 06:59 14:59 Intake Total 43.302 61.006 213.464 Output Total 160 1000 Balance -116.698 -938.994 213.464 Intake: Intake, IV Titration 43.302 61.006 95.464 Amount Heparin Sod,Pork in 0.45% 43.302 61.006 95.464 NaCl 25,000 unit In 0.45 % NaCl 1 250ml.bag @ 8.48 UNITS/KG/HR 10.001 mls/ hr IV .Q24H [facility] Rx#: [id number] Oral 118 Output: Urine 160 1000 Other: Voiding Method Toilet # Voids 1 3 1 Weight 118 kg GENERAL EXAM: Alert, very pleasant, 65-year-old white male on room air, with a pulse ox of 97% comfortable in no apparent distress. HEAD: Normocephalic/atraumatic. EYES: Normal reaction of pupils, equal size. Conjunctiva pink, sclera white. NOSE: Clear with pink turbinates. THROAT: No erythema or exudates. NECK: No masses, no JVD, no thyroid enlargement, no adenopathy. CHEST: No chest wall deformity. Symmetrical expansion. LUNGS: Equal air entry with no crackles, wheeze, rhonchi or dullness. CVS: Regular rate and rhythm, normal S1 and S2, no gallops, no murmurs, no rubs ABDOMEN: Soft, nontender. No hepatosplenomegaly, normal bowel sounds, no guarding or rigidity. EXTREMITIES: No clubbing, no edema, no cyanosis, 2+ pulses and upper and lower extremities. MUSCULOSKELETAL: Muscle strength and tone normal. SPINE: No scoliosis or deformity SKIN: No rashes CENTRAL NERVOUS SYSTEM: Alert and oriented -3. No focal deficits, tone is normal in all 4 extremities. PSYCHIATRIC: Alert and oriented -3. Appropriate affect. Intact judgment and insight. Results - Laboratory Findings CBC and BMP: 12/05/20 07:20 12/05/20 07:20 PT/INR, D-dimer PT 11.8 sec (9.0-12.0) 12/04/20 01:04 INR 1.1 (<1.2) 12/04/20 01:04 Abnormal lab findings: Abnormal Labs 12/04/20 12/04/20 12/04/20 01:04 01:04 01:04 WBC 10.9 H Neutrophils # 8.6 H APTT 194.7 H* Potassium 3.4 L Glucose 118 H Magnesium 2.4 H Troponin I HDL Cholesterol Lipase 414 H Ur Specific [place] Urine Protein 12/04/20 12/04/20 12/04/20 01:04 04:27 04:27 WBC Neutrophils # APTT Potassium Glucose 114 H Magnesium Troponin I 0.546 H* 2.540 H* HDL Cholesterol Lipase Ur Specific [place] Urine Protein 12/04/20 12/04/20 12/04/20 04:27 07:40 14:50 WBC Neutrophils # APTT Potassium Glucose Magnesium Troponin I 4.140 H* HDL Cholesterol 24.0 L Lipase Ur Specific [place] 1.050 H Urine Protein Trace H 12/05/20 12/05/20 07:20 07:20 WBC Neutrophils # APTT 34.4 H Potassium Glucose 106 H Magnesium Troponin I HDL Cholesterol Lipase Ur Specific [place] Urine Protein - Diagnostic Findings Chest x-ray: report reviewed, image reviewed Additional studies: Echocardiogram reviewed, EKG reviewed, cardiac catheterization report reviewed, carotid Doppler results revealed Assessment and Plan Plan: Assessment: #1. Symptomatic multivessel coronary artery disease, awaiting coronary artery bypass grafting on 12/07/2020 #2. Acute non-ST elevated myocardial infarction #3. Previous history of myocardial infarction 20 years ago #4. Hypertension #5. Hyper lipidemia #6. Previous history of tobacco dependence, in remission for last 2 years, carries a 91-[id number]-[id number] smoking history #7. Marijuana vaping, bedside FEV1 50% of predicted #8. Restless leg syndrome #9. Remote history of pneumonia Plan: FEV1 reviewed Chest x-ray is without abnormal findings Breathing comfortably Vitals signs are stable We'll continue to follow Surgery is tentatively scheduled for 12/07/[address] Driver We'll follow the patient in the postoperative period and in the ICU I performed a history & physical examination of the patient and discussed their management with my nurse practitioner, Elise Zelaya. I reviewed the nurse practitioner's note and agree with the documented findings and plan of care. Lung sounds are positive for clear breath sounds. The findings and the impression was discussed with the patient. I attest to the documentation by the nurse practitioner. Time with Patient: Greater than 30
--- NOTE | 2020-12-05 12:38 | P.PN ---
Subjective Progress Note Date: 12/05/20 HISTORY OF PRESENT ILLNESS: This is a 65-year-old male with a past medical history significant for previous myocardial infarction without stenting and hypertension. Patient does not follow with a marketing planner (states it has been over 10 years since he saw a marketing planner). We have been asked to see the patient in consultation for chest pain. Patient examined at the bedside. Patient initially presented to [facility] secondary to chest pain. Patient reports he was outside working in his yard when he began having chest pain. He describes the pain as feeling like a heartburn sensation. He denies any radiation of the pain. He reports feeling short of breath and diaphoretic at the time. He states he went across the street to his friend who is a online communications specialist who recommended he go to the hospital for further evaluation. At the time of examination, patient denies chest pain or pressure. EKG reveals sinus mechanism with Q waves in inferior leads and septal leads Chest xray negative for acute process Laboratory data: WBC 8.0. Hemoglobin 15.6. Platelet count 242. Sodium 139. Potassium 4.0. BUN 12. Creatinine 1.03. Magnesium 2.4. BNP 198. Troponin 0. 546. 2.540. 4.140. Current home cardiac medications include losartan-hydrochlorothiazide 50-12.5mg daily 12/05/2020 Patient underwent cardiac catheterization yesterday with Dr. Akers revealing calcified right and left coronary system. Chronic total occlusion of the RCA. RCA fills by bridging collaterals from the left coronary system. Calcified left main with disease distally that appeared to be in the range of 40-50%. Severe disease involving the ostial left circumflex. Severe disease involving the ostial and proximal left anterior descending artery. Cardiothoracic surgery was consulted and have evaluated the patient. They are planning for CABG tentatively on . Patient remains on IV heparin. Patient denies having any chest pain or pressure today. Denies shortness of breath. Echocardiogram completed revealed ejection fraction 55-60%, basal inferior and basal inferior septal LV wall akinesis. PHYSICAL EXAM: VITAL SIGNS: Reviewed. GENERAL: Well-developed in no acute distress. HEENT: Head is normocephalic. Pupils are equal, round. Sclerae anicteric. Mucous membranes of the mouth are moist. Neck supple. No JVD or thyromegaly LUNGS: Respirations even and unlabored. Lungs essentially clear to auscultation bilaterally. HEART: Regular rate and rhythm. S1 and S2 heard. ABDOMEN: Soft. Nondistended. Nontender. EXTREMITIES: Normal range of motion. No clubbing or cyanosis. Peripheral pulses intact. No lower extremity edema. Right radial cath site with pulse present. NEUROLOGIC: Awake and alert. Oriented x 3. ASSESSMENT: Non-STEMI, status post cardiac catheterization revealing multivessel CAD History of coronary artery disease Hypertension PLAN: Continue current cardiac medications CTS following. Plan for CABG on Further recommendations pending patient's course Nurse practitioner note has been reviewed by physician. Signing provider agrees with the documented findings, assessment, and plan of care. Objective - Vital Signs Vital signs: Vital Signs Temp 98.5 F 12/05/20 08:00 Pulse 72 12/05/20 12:00 Resp 16 12/05/20 12:00 BP 154/86 12/05/20 12:00 Pulse Ox 95 12/05/20 12:00 Intake & Output 12/04/20 12/05/20 12/05/20 18:59 06:59 18:59 Intake Total 623.696 61.006 213.464 Output Total 1160 Balance 623.696 -1098.994 213.464 Weight 118 kg Intake: IV 300 Intake, IV Titration 83.696 61.006 95.464 Amount Heparin Sod,Pork in 0.45% 83.696 61.006 95.464 NaCl 25,000 unit In 0.45 % NaCl 1 250ml.bag @ 8.48 UNITS/KG/HR 10.001 mls/ hr IV .Q24H [facility] Rx#: [id number] Oral 240 118 Output: Urine 1160 Other: Voiding Method Toilet Toilet # Voids 2 3 1 - Labs CBC & Chem 7: 12/05/20 07:20 12/05/20 07:20 Labs: Abnormal Lab Results - Last 24 Hours (Table) 12/04/20 12/04/20 12/05/20 Range/Units 04:27 14:50 07:20 APTT (22.0-30.0) sec Glucose 106 H (74-99) mg/dL HDL Cholesterol 24.0 L (40.0-60.0) mg/dL Ur Specific [place] 1.050 H (1.001-1.035) Urine Protein Trace H (Negative) 12/05/20 Range/Units 07:20 APTT 34.4 H (22.0-30.0) sec Glucose (74-99) mg/dL HDL Cholesterol (40.0-60.0) mg/dL Ur Specific [place] (1.001-1.035) Urine Protein (Negative) Microbiology - Last 24 Hours (Table) 12/04/20 14:50 Nasal Screen MRSA/MSSA - Preliminary Nasal Swab
--- NOTE | 2020-12-05 13:27 | P.PN ---
Subjective Progress Note Date: 12/05/20 Patient is doing well today. He denies any chest pain. He is undergoing extensive evaluation for possible CABG on . Patient does not have any concerns. Objective - Vital Signs Vital signs: Vital Signs Temp 98.5 F 12/05/20 08:00 Pulse 72 12/05/20 12:00 Resp 16 12/05/20 12:00 BP 154/86 12/05/20 12:00 Pulse Ox 95 12/05/20 12:00 Intake & Output 12/04/20 12/05/20 12/05/20 18:59 06:59 18:59 Intake Total 623.696 61.006 213.464 Output Total 1160 Balance 623.696 -1098.994 213.464 Weight 118 kg Intake: IV 300 Intake, IV Titration 83.696 61.006 95.464 Amount Heparin Sod,Pork in 0.45% 83.696 61.006 95.464 NaCl 25,000 unit In 0.45 % NaCl 1 250ml.bag @ 8.48 UNITS/KG/HR 10.001 mls/ hr IV .Q24H [facility] Rx#: [id number] Oral 240 118 Output: Urine 1160 Other: Voiding Method Toilet Toilet # Voids 2 3 1 - Exam General: The patient is awake and alert, in no distress Eye: there is normal conjunctiva bilaterally. Neck: The neck is supple, there is no JVD. Cardiovascular: Normal S1-S2, no S3-S4, no murmurs. Respiratory: Lungs clear to auscultation bilaterally Gastrointestinal: Abdomen is soft, nontender Musculoskeletal: There is no pedal edema. Neurological:. Speech is normal. Skin: Skin is warm and dry - Labs CBC & Chem 7: 12/05/20 07:20 12/05/20 07:20 Labs: Abnormal Lab Results - Last 24 Hours (Table) 12/04/20 12/04/20 12/05/20 Range/Units 04:27 14:50 07:20 APTT (22.0-30.0) sec Glucose 106 H (74-99) mg/dL HDL Cholesterol 24.0 L (40.0-60.0) mg/dL Ur Specific [place] 1.050 H (1.001-1.035) Urine Protein Trace H (Negative) 12/05/20 Range/Units 07:20 APTT 34.4 H (22.0-30.0) sec Glucose (74-99) mg/dL HDL Cholesterol (40.0-60.0) mg/dL Ur Specific [place] (1.001-1.035) Urine Protein (Negative) Microbiology - Last 24 Hours (Table) 12/04/20 14:50 Nasal Screen MRSA/MSSA - Preliminary Nasal Swab Assessment and Plan Assessment: This is a 65-year-old male with past medical history noted below who presented to the emergency room with chest pain. Patient was [facility] at [facility] and transferred to our facility for cardiology evaluation. Below is a list of his medical problems. 1. Multivessel coronary artery disease noted on left heart catheterization involving total occlusion of the RCA, severe disease involving the ostial left circumflex and proximal LAD. Patient was seen and evaluated by cardiac surgery is currently undergoing extensive evaluation for possible CABG on . 2. Non-ST elevation myocardial infarction, on presentation, treated with op timal medical management. Echocardiogram showed EF of 55-60%. No significant valvular abnormalities. Basal inferior left ventricular wall is akinetic 3. Essential hypertension, blood pressure within acceptable range. Resume home dose of losartan 50 mg daily tomorrow. Discontinue hydrochlorothiazide 4. Hypokalemia, replaced. We will continue to monitor closely 5. Leukocytosis, resolved. Resolved. mostly reactive Today, I reviewed his medication list and lab work results. Patient is undergoing extensive preoperative evaluation for possible CABG on . Appreciate continuous improvement consultant's recommendations.
[2020-12-05 14:40] LABS: Chol/HDL Ratio 5.1; LDL Cholesterol,Calculated 102.6 mg/dL (0.0-131.0); VLDL Calculation 20.4 mg/dL (5.00-40.00)
[2020-12-05] MEDS: PRAMIPEXOLE 0.5 MG TAB PO SCH (20:41)
[2020-12-05] MEDS: ALPRAZolam 0.5 MG TAB PO PRN (20:45)
[2020-12-06] MEDS: HEPARIN SOD,PORK IN 0.45% NACL 25,000 UNIT in 0.45% NACL 1 250ML.BAG IV SCH (02:50)
[2020-12-06] MEDS: SODIUM CHLORIDE 0.9% 1,000 ML IV SCH (02:51)
[2020-12-06 07:49] LABS: HCT 49.4 % (39.0-53.0); HGB 16.9 gm/dL (13.0-17.5); MCH 30.5 pg (25.0-35.0); MCHC 34.1 g/dL (31.0-37.0); MCV 89.4 fL (80.0-100.0); Mean Platelet Volume 7.3; Platelet Count 233 k/uL (150-450); RBC 5.53 m/uL (4.30-5.90); RDW 13.4 % (11.5-15.5); WBC 6.6 k/uL (3.8-10.6)
[2020-12-06 08:09] LABS: Calcium 9.2 mg/dL (8.4-10.2); Potassium 4.2 mmol/L (3.5-5.1)
[2020-12-06] MEDS ORDERED: MD COMMUNICATION TO PHARMACY 1 EACH MISC PO ONE (08:31)
--- NOTE | 2020-12-06 08:31 | P.PN ---
Subjective Progress Note Date: 12/06/20 Principal diagnosis: Symptomatic multivessel coronary artery disease, NSTEMI this admission. Previous medical history of myocardial infarction approximately 20 years ago without intervention, hypertension, hyperlipidemia, previous tobacco dependence, daily marijuana vaping, restless leg syndrome, remote history of pneumonia as a child. Unvaccinated against Covid. The patient is currently laying in bed in no acute distress on the cardiac stepdown unit. Denies any chest pain or shortness of breath. He has been ambulatory in the hallway without difficulty. Remains on IV heparin. No new questions, anticipates surgery tomorrow. Objective - Vital Signs Vital signs: Vital Signs Temp 98.1 F 12/06/20 04:00 Pulse 60 12/06/20 04:00 Resp 16 12/06/20 04:00 BP 151/88 12/06/20 04:00 Pulse Ox 96 12/06/20 04:00 Intake & Output 12/05/20 12/06/20 12/06/20 18:59 06:59 18:59 Intake Total 838.802 123.546 240 Output Total 200 640 Balance 638.802 -516.454 240 Weight 118.1 kg Intake: Intake, IV Titration 362.802 123.546 Amount Heparin Sod,Pork in 0.45% 212.802 123.546 NaCl 25,000 unit In 0.45 % NaCl 1 250ml.bag @ 8.48 UNITS/KG/HR 10.001 mls/ hr IV .Q24H [facility] Rx#: [id number] Sodium Chloride 0.9% 1, 150 000 ml In Empty Bag 1 bag @ 1 ML/KG/HR 116.5 mls/ hr IV .Q8H36M [facility] Rx#: [id number] Oral 476 240 Output: Urine 200 640 Other: Voiding Method Toilet Toilet # Voids 1 2 - Exam CONSTITUTIONAL: Appears comfortable, cooperative, no acute distress RESPIRATORY: Lungs sounds diminished bilaterally. Respirations even, nonlabored. Currently on room air with oxygen saturation 97%. Able to achieve 3000 mL on incentive spirometry. Strong cough. CARDIOVASCULAR: S1, S2 present. Regular rate and rhythm, sinus rhythm on telemetry. Sternum stable. Palpable peripheral pulses bilaterally. No edema present. No calf pain or tenderness noted. GASTROINTESTINAL: Abdomen soft, nontender, nondistended. Active bowel sounds present 4 quadrants. Tolerating diet. GENITOURINARY: Continues to void INTEGUMENTARY: Skin is warm and dry with evidence of good perfusion. NEUROLOGIC: Cranial nerves II through XII intact MUSKULOSKELETAL: Able to move all extremities, strength equal bilaterally, gait normal PSYCHIATRIC: Alert and oriented to person place and time, appropriate affect, intact judgment and insight - Labs CBC & Chem 7: 12/06/20 06:47 12/06/20 06:47 Labs: Abnormal Lab Results - Last 24 Hours (Table) 12/05/20 12/05/20 12/05/20 Range/Units 07:20 15:43 22:46 APTT 37.8 H 37.4 H (22.0-30.0) sec Glucose (74-99) mg/dL HDL Cholesterol 30.0 L (40.0-60.0) mg/dL 12/06/20 12/06/20 Range/Units 06:47 06:47 APTT 66.2 H (22.0-30.0) sec Glucose 106 H (74-99) mg/dL HDL Cholesterol (40.0-60.0) mg/dL Microbiology - Last 24 Hours (Table) 12/04/20 14:50 Nasal Screen MRSA/MSSA - Final Nasal Swab Assessment and Plan Assessment: 1. Symptomatic multivessel coronary artery disease, NSTEMI this admission 2. History of myocardial infarction approximately 20 years ago without intervention 3. Hypertension 4. Hyperlipidemia, cholesterol 170, LDL 122 5. Previous tobacco dependence, FEV1 50% predicted 6. Daily marijuana vaping 7. Restless leg syndrome 8. Remote history of pneumonia as a child Plan: 1. Continue to maximize medical therapy with aspirin, statin, beta rj therapy. IV heparin to be discontinued motion picture photographer to OR tomorrow 2. Encourage incentive spirometry use 3. Increase activity, ambulate as tolerated 4. Dr. Gilbert consulted for pulmonology clearance 5. STS risk score calculated and discussed with patient 6. Our plan is for off-pump myocardial revascularization with left internal mammary artery, endoscopic vein harvest, possible left radial artery harvest, possible left atrial appendage ligation on , 12/07/[address] Driver. NPO after midnight 7. Continue preoperative teaching 8. Medical management of other comorbidities per primary care service 9. More recommendations to follow Time with Patient: Less than 30
[2020-12-06] MEDS: traMADol 50 MG TAB PO SCH ×2 (08:57→19:54)
[2020-12-06] MEDS: ASPIRIN 81 MG PO SCH (08:57)
[2020-12-06] MEDS: ATORVASTATIN 80 MG TAB PO SCH (08:57)
[2020-12-06] MEDS: LOSARTAN 50 MG TAB PO SCH (08:58)
[2020-12-06] MEDS: METOPROLOL TARTRATE 25 MG TAB PO SCH ×2 (08:58→19:54)
--- NOTE | 2020-12-06 09:29 | P.ARTDOP ---
Arterial Doppler LOWER EXTREMITY ARTERIAL DOPPLER: DATE OF SERVICE: 12/04/2020 Reason for study: Preop CABG. Doppler waveforms: Multiphasic bilaterally throughout. Pulse volume recording: []. Pressure gradients: None. Ankle-brachial indices: Greater than 1 bilaterally. Toe brachial indices: [] on the right, [] on the left Impression: Normal study.
--- NOTE | 2020-12-06 09:31 | P.VSCSTY ---
Greater Saphenous Vein Mapping This is bilateral lower extremity greater saphenous vein mapping. Date of service: 12/04/2020 Vein quality and ultrasound appearance: We see no intraluminal thrombus or obvious wall changes. Vein size in millimeters groin right : 8.1 x 6.3 groin left: 7.7 x 8.0 High thigh right: 5.2 x 5.2 high thigh left: 4.7 x 4.9 Mid thigh right: 3.8 x 3.8 mid thigh left: 4.5 x 4.5 Above-knee right: 3.8 x 4.3 above- knee left: 4.1 x 4.3 Below knee right: 3.2 x 3.8 below-knee left: 2.6 x 2.3 Mid calf right: 3.8 x 3.8 mid calf left: 3.1 x 3.5 Ankle right: 3.8 x 3.9 ankle left: 3.1 x 2.8 Impression: Usable bilateral greater saphenous vein.
--- NOTE | 2020-12-06 12:01 | P.PN ---
Subjective Progress Note Date: 12/06/20 HISTORY OF PRESENT ILLNESS: This is a 65-year-old male with a past medical history significant for previous myocardial infarction without stenting and hypertension. Patient does not follow with a former hand (states it has been over 10 years since he saw a former hand). We have been asked to see the patient in consultation for chest pain. Patient examined at the bedside. Patient initially presented to [facility] secondary to chest pain. Patient reports he was outside working in his yard when he began having chest pain. He describes the pain as feeling like a heartburn sensation. He denies any radiation of the pain. He reports feeling short of breath and diaphoretic at the time. He states he went across the street to his friend who is a inpatient services director who recommended he go to the hospital for further evaluation. At the time of examination, patient denies chest pain or pressure. EKG reveals sinus mechanism with Q waves in inferior leads and septal leads Chest xray negative for acute process Laboratory data: WBC 8.0. Hemoglobin 15.6. Platelet count 242. Sodium 139. Potassium 4.0. BUN 12. Creatinine 1.03. Magnesium 2.4. BNP 198. Troponin 0. 546. 2.540. 4.140. Current home cardiac medications include losartan-hydrochlorothiazide 50-12.5mg daily 12/05/2020 Patient underwent cardiac catheterization yesterday with Dr. Akers revealing calcified right and left coronary system. Chronic total occlusion of the RCA. RCA fills by bridging collaterals from the left coronary system. Calcified left main with disease distally that appeared to be in the range of 40-50%. Severe disease involving the ostial left circumflex. Severe disease involving the ostial and proximal left anterior descending artery. Cardiothoracic surgery was consulted and have evaluated the patient. They are planning for CABG tentatively on . Patient remains on IV heparin. Patient denies having any chest pain or pressure today. Denies shortness of breath. Echocardiogram completed revealed ejection fraction 55-60%, basal inferior and basal inferior septal LV wall akinesis. 12/06/2020 Patient examined this morning at the bedside. Patient denies chest pain or pressure. Denies SOB. Vital signs are stable. He remains on IV heparin. PHYSICAL EXAM: VITAL SIGNS: Reviewed. GENERAL: Well-developed in no acute distress. HEENT: Head is normocephalic. Pupils are equal, round. Sclerae anicteric. Mucous membranes of the mouth are moist. Neck supple. No JVD or thyromegaly LUNGS: Respirations even and unlabored. Lungs essentially clear to auscultation bilaterally. HEART: Regular rate and rhythm. S1 and S2 heard. ABDOMEN: Soft. Nondistended. Nontender. EXTREMITIES: Normal range of motion. No clubbing or cyanosis. Peripheral pulses intact. No lower extremity edema. Right radial cath site with pulse pre sent. NEUROLOGIC: Awake and alert. Oriented x 3. ASSESSMENT: Non-STEMI, status post cardiac catheterization revealing multivessel CAD History of coronary artery disease Hypertension PLAN: Continue current cardiac medications CTS following. Plan for CABG on Further recommendations pending patient's course Nurse practitioner note has been reviewed by physician. Signing provider agrees with the documented findings, assessment, and plan of care. Objective - Vital Signs Vital signs: Vital Signs Temp 96.3 F L 12/06/20 08:00 Pulse 58 L 12/06/20 08:00 Resp 16 12/06/20 08:00 BP 145/85 12/06/20 08:00 Pulse Ox 96 12/06/20 08:00 Intake & Output 12/05/20 12/06/20 12/06/20 18:59 06:59 18:59 Intake Total 838.802 123.546 240 Output Total 200 640 400 Balance 638.802 -516.454 -160 Weight 118.1 kg Intake: Intake, IV Titration 362.802 123.546 Amount Heparin Sod,Pork in 0.45% 212.802 123.546 NaCl 25,000 unit In 0.45 % NaCl 1 250ml.bag @ 8.48 UNITS/KG/HR 10.001 mls/ hr IV .Q24H [facility] Rx#: [id number] Sodium Chloride 0.9% 1, 150 000 ml In Empty Bag 1 bag @ 1 ML/KG/HR 116.5 mls/ hr IV .Q8H36M [facility] Rx#: [id number] Oral 476 240 Output: Urine 200 640 400 Other: Voiding Method Toilet Toilet Toilet # Voids 1 2 - Labs CBC & Chem 7: 12/06/20 06:47 12/06/20 06:47 Labs: Abnormal Lab Results - Last 24 Hours (Table) 12/05/20 12/05/20 12/05/20 Range/Units 07:20 15:43 22:46 APTT 37.8 H 37.4 H (22.0-30.0) sec Glucose (74-99) mg/dL HDL Cholesterol 30.0 L (40.0-60.0) mg/dL Crossmatch 12/06/20 12/06/20 12/06/20 Range/Units 06:47 06:47 06:47 APTT 66.2 H (22.0-30.0) sec Glucose 106 H (74-99) mg/dL HDL Cholesterol (40.0-60.0) mg/dL Crossmatch See Detail Microbiology - Last 24 Hours (Table) 12/04/20 14:50 Nasal Screen MRSA/MSSA - Final Nasal Swab
[2020-12-06] MEDS: MUPIROCIN 2% OINT 22 GM TUBE NASAL SCH ×2 (12:25→19:54)
--- NOTE | 2020-12-06 13:11 | P.PN ---
Subjective Progress Note Date: 12/06/20 Principal diagnosis: Multivessel coronary artery disease This is a 65-year-old white male patient with past medical history of a myocardial infarction 20 years ago without intervention, hypertension, hyperlipidemia, previous history of smoking, in remission for last 2 years, does carry [id number] smoking history, currently vapes marijuana. Patient came into the hospital on 12/03/2020 for evaluation of chest pain. Patient came in to this facility as a transfer from an outside facility, he was diagnosed with non-ST elevated myocardial infarction. He had elevated troponins with first, second and third set at 0.546, 2.540, and 4.140. His EKG showed sinus bradycardia, with evidence of a septal infarct and inferior wall infarct of undetermined age. Echocardiogram showed mild concentric LVH, preserved LV function with an EF of 55-60%, basal inferior and inferolateral septal LV wall motion was akinetic. There was no aortic stenosis or regurgitation, and there was mild MR, mild TR, and PA pressure was less than 35 mmHg. Patient had a cardiac catheterization on 12/04/2020 which revealed chronic total occlusion of the RCA, calcified left main with disease distally in the range of 40-50%, severe disease involving the ostial left circumflex, and ostial and proximal LAD. Patient was referred to cardiothoracic surgery for evaluation of coronary artery bypass grafting. In the meantime he is on antiplatelet therapy with aspirin as well as high intensity statin, and he is on heparin infusion per weight-based protocol. Chest x-ray showed normal chest x-ray.patient was seen by Dr. Driver from CT surgery and his surgery is tentatively scheduled for , 12/07/2020. His at bedside FEV1 was in the order of 51% of predicted. He is not oxygen dependent at baseline. He is breathing comfortably. Remains pulse ox is 97%. The patient is seen today 12/06/2020 in follow-up on the selective care unit. He is currently resting comfortably in bed. Awake and alert in no acute distress. Denies any chest pain, palpitations, lightheadedness or dizziness. N o worsening shortness of breath, cough or congestion. He remains on a heparin drip. White count 6.6. Hemoglobin 16.9. Platelets 233. Sodium 140. Potassium 4.2. Creatinine 1.03. Asencio virus not detected. Plan is for CABG tomorrow. Objective - Vital Signs Vital signs: Vital Signs Temp 96.3 F L 12/06/20 08:00 Pulse 63 12/06/20 12:00 Resp 16 12/06/20 12:00 BP 164/93 12/06/20 12:00 Pulse Ox 97 12/06/20 12:00 Intake & Output 12/05/20 12/06/20 12/06/20 18:59 06:59 18:59 Intake Total 838.802 123.546 240 Output Total 200 640 400 Balance 638.802 -516.454 -160 Weight 118.1 kg Intake: Intake, IV Titration 362.802 123.546 Amount Heparin Sod,Pork in 0.45% 212.802 123.546 NaCl 25,000 unit In 0.45 % NaCl 1 250ml.bag @ 8.48 UNITS/KG/HR 10.001 mls/ hr IV .Q24H [facility] Rx#: [id number] Sodium Chloride 0.9% 1, 150 000 ml In Empty Bag 1 bag @ 1 ML/KG/HR 116.5 mls/ hr IV .Q8H36M [facility] Rx#: [id number] Oral 476 240 Output: Urine 200 640 400 Other: Voiding Method Toilet Toilet Toilet # Voids 1 2 - Exam GENERAL EXAM: Alert, very pleasant 65-year-old gentleman, on room air, comfortable in no apparent distress. HEAD: Normocephalic. EYES: Normal reaction of pupils, equal size. NOSE: Clear with pink turbinates. THROAT: No erythema or exudates. NECK: No masses, no JVD. CHEST: No chest wall deformity. LUNGS: Equal air entry with no crackles, wheeze, rhonchi or dullness. CVS: S1 and S2 normal with no audible murmur, regular rhythm. ABDOMEN: No hepatosplenomegaly, normal bowel sounds, no guarding or rigidity. SPINE: No scoliosis or deformity SKIN: No rashes CENTRAL NERVOUS SYSTEM: No focal deficits, tone is normal in all 4 extremities. EXTREMITIES: There is no peripheral edema. No clubbing, no cyanosis. Peripheral pulses are intact. - Labs CBC & Chem 7: 12/06/20 06:47 12/06/20 06:47 Labs: Abnormal Lab Results - Last 24 Hours (Table) 12/05/20 12/05/20 12/05/20 Range/Units 07:20 15:43 22:46 APTT 37.8 H 37.4 H (22.0-30.0) sec Glucose (74-99) mg/dL HDL Cholesterol 30.0 L (40.0-60.0) mg/dL Crossmatch 12/06/20 12/06/20 12/06/20 Range/Units 06:47 06:47 06:47 APTT 66.2 H (22.0-30.0) sec Glucose 106 H (74-99) mg/dL HDL Cholesterol (40.0-60.0) mg/dL Crossmatch See Detail Microbiology - Last 24 Hours (Table) 12/04/20 14:50 Nasal Screen MRSA/MSSA - Final Nasal Swab Assessment and Plan Assessment: 1 Symptomatic multivessel coronary artery disease, awaiting coronary artery bypass grafting on 12/07/2020 2 Acute non-ST elevated myocardial infarction 3 Previous history of myocardial infarction 20 years ago 4 Hypertension 5 Hyper lipidemia 6 Previous history of tobacco dependence, 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 Ofelia Rivers from the pulmonary standpoint Working well with the incentive spirometer We'll follow in the immediate postop period I, the cosigning physician, performed a history & physical examination of the patient. Lungs sounds are clear. Maintaining good O2 saturations in the 90s on room air. I discussed the assessment and plan of care with my nurse practi Zeny rodas. I attest to the above note as dictated by her.
--- NOTE | 2020-12-06 16:17 | P.PN ---
Subjective Progress Note Date: 12/06/20 Patient is doing well today. He denies any chest pain. He is undergoing extensive evaluation for CABG on . Patient does not have any concerns. Objective - Vital Signs Vital signs: Vital Signs Temp 96.3 F L 12/06/20 08:00 Pulse 63 12/06/20 12:00 Resp 16 12/06/20 12:00 BP 164/93 12/06/20 12:00 Pulse Ox 97 12/06/20 12:00 Intake & Output 12/05/20 12/06/20 12/06/20 18:59 06:59 18:59 Intake Total 838.802 123.546 480 Output Total 200 640 400 Balance 638.802 -516.454 80 Weight 118.1 kg Intake: Intake, IV Titration 362.802 123.546 Amount Heparin Sod,Pork in 0.45% 212.802 123.546 NaCl 25,000 unit In 0.45 % NaCl 1 250ml.bag @ 8.48 UNITS/KG/HR 10.001 mls/ hr IV .Q24H [facility] Rx#: [id number] Sodium Chloride 0.9% 1, 150 000 ml In Empty Bag 1 bag @ 1 ML/KG/HR 116.5 mls/ hr IV .Q8H36M [facility] Rx#: [id number] Oral 476 480 Output: Urine 200 640 400 Other: Voiding Method Toilet Toilet Toilet # Voids 1 2 - Exam General: The patient is awake and alert, in no distress Eye: there is normal conjunctiva bilaterally. Neck: The neck is supple, there is no JVD. Cardiovascular: Normal S1-S2, no S3-S4, no murmurs. Respiratory: Lungs clear to auscultation bilaterally Gastrointestinal: Abdomen is soft, nontender Musculoskeletal: There is no pedal edema. Neurological:. Speech is normal. Skin: Skin is warm and dry - Labs CBC & Chem 7: 12/06/20 06:47 12/06/20 06:47 Labs: Abnormal Lab Results - Last 24 Hours (Table) 12/05/20 12/06/20 12/06/20 Range/Units 22:46 06:47 06:47 APTT 37.4 H (22.0-30.0) sec Glucose 106 H (74-99) mg/dL Crossmatch See Detail 12/06/20 Range/Units 06:47 APTT 66.2 H (22.0-30.0) sec Glucose (74-99) mg/dL Crossmatch Microbiology - Last 24 Hours (Table) 12/04/20 14:50 Nasal Screen MRSA/MSSA - Final Nasal Swab Assessment and Plan Assessment: This is a 65-year-old male with past medical history noted below who presented to the emergency room with chest pain. Patient was evaluated at [facility] and transferred to our facility for cardiology evaluation. Below is a list of his medical problems. 1. Multivessel coronary artery disease noted on left heart catheterization involving total occlusion of the RCA, severe disease involving the ostial left circumflex and proximal LAD. Patient was seen and evaluated by cardiac surgery is currently undergoing extensive evaluation for possible CABG on . 2. Non-ST elevation myocardial infarction, on presentation, treated with optimal medical management. Echocardiogram showed EF of 55-60%. No significant valvular abnormalities. Basal inferior left ventricular wall is akinetic 3. Essential hypertension, blood pressure within acceptable range. Resume home dose of losartan 50 mg daily tomorrow. Discontinue hydrochlorothiazide 4. Hypokalemia, replaced. We will continue to monitor closely 5. Leukocytosis, resolved. Resolved. mostly reactive Today, I reviewed his medication list and lab work results. Patient is undergoing extensive preoperative evaluation for CABG on . Appreciate consultant education's recommendations.
[2020-12-06] MEDS: PRAMIPEXOLE 0.5 MG TAB PO SCH (19:54)
[2020-12-07] MEDS: HEPARIN SOD,PORK IN 0.45% NACL 25,000 UNIT in 0.45% NACL 1 250ML.BAG IV SCH (00:04)
[2020-12-07] MEDS: SODIUM CHLORIDE 0.9% 1,000 ML IV SCH (00:04)
[2020-12-07] MEDS ORDERED: METOPROLOL TARTRATE 12.5 MG TAB PO ONE (05:00)
[2020-12-07] MEDS ORDERED: PAPAVERINE 360 MG in SODIUM CHLORIDE 0.9% 90 ML IV ONE ×2 (05:00→13:32)
[2020-12-07] MEDS ORDERED: CLEVIDIPINE BUTYRATE 25 MG in EMPTY BAG 1 BAG IV SCH ×2 (05:00→16:26)
[2020-12-07] MEDS ORDERED: NITROGLYCERIN-D5W PMX 50 MG in DEXTROSE/WATER 1 250ML.BAG IV SCH (05:00)
[2020-12-07] MEDS ORDERED: TRANEXAMIC ACID 2,000 MG in SODIUM CHLORIDE 0.9% 80 ML IV ONE (05:00)
[2020-12-07] MEDS ORDERED: DILTIAZEM 125 MG in SODIUM CHLORIDE 0.9% 100 ML IV SCH ×2 (05:00→16:26)
[2020-12-07] MEDS ORDERED: LACTATED RINGERS 1,000 ML IV SCH (05:00)
[2020-12-07] MEDS ORDERED: CARDIOPLEGIC SOLN (K+ 16 MEQ/L 1,000 ML with SOD BICARB SYR 8.4% (1 MEQ/ML) 20 ML, LIDO... PERFUSION NR ×3 (05:00)
[2020-12-07] MEDS ORDERED: PHENYLEPHRINE 10 MG/ML VIAL IV ONE (05:00)
[2020-12-07] MEDS ORDERED: SODIUM BICARB 8.4% 50 ML SYR (1 MEQ/ML) IV ONE (05:00)
[2020-12-07] MEDS ORDERED: ALBUMIN HUMAN 25% 50 ML in EMPTY BAG 1 BAG IVPB ONE (05:00)
[2020-12-07] MEDS ORDERED: PHENYLEPHRINE 40 MG in SODIUM CHLORIDE 0.9% 250 ML IV ONE (05:00)
[2020-12-07] MEDS ORDERED: HEPARIN SODIUM,PORCINE 5,000 UNIT in SODIUM CHLORIDE 0.9% 500 ML 500 ML IV ONE (05:00)
[2020-12-07] MEDS ORDERED: MANNITOL 25% 12.5 GM/50 ML VIAL IV ONE ×2 (05:00)
[2020-12-07] MEDS ORDERED: NOREPINEPHRINE 4 MG in SODIUM CHLORIDE 0.9% 250 ML IV SCH (05:00)
[2020-12-07] MEDS ORDERED: INSULIN REGULAR 100 UNIT in SODIUM CHLORIDE 0.9% 100 ML IV SCH ×2 (05:00→16:26)
[2020-12-07] MEDS ORDERED: ASPIRIN 325 MG TAB PO ONE (05:00)
[2020-12-07] MEDS ORDERED: ceFAZolin 1,000 MG in SODIUM CHLORIDE 0.9% IRRIGATIO 1,000 ML IRRIGATION ONE (05:00)
[2020-12-07] MEDS ORDERED: NITROGLYCERIN-D5W PMX 25 MG/250 ML BTL IV ONE (05:00)
[2020-12-07] MEDS ORDERED: CALCIUM CHLORIDE 100 MG/ML 10 ML SYRINGE IVP ONE (05:00)
[2020-12-07] MEDS ORDERED: PROTAMINE SULFATE 10 MG/ML 25 ML VIAL IV ONE (05:00)
[2020-12-07] MEDS ORDERED: CHLORHEXIDINE GLUCONATE 15 ML CUP MUCOUS MEM ONE (05:00)
[2020-12-07] MEDS ORDERED: MAGNESIUM SULFATE SYG 4.06 MEQ/ML SYRINGE IV ONE (05:00)
[2020-12-07] MEDS ORDERED: HEPARIN SODIUM 1,000 UN/ML (10ML VL) IV ONE (05:00)
[2020-12-07] MEDS ORDERED: ATORVASTATIN 10 MG TAB PO ONE (05:00)
[2020-12-07] MEDS ORDERED: PROTAMINE SULFATE 250 MG in EMPTY BAG 1 BAG IV ONE (05:00)
[2020-12-07] MEDS ORDERED: ALBUMIN HUMAN 5% 500 ML in EMPTY BAG 1 BAG IVPB ONE ×6 (05:00)
[2020-12-07 07:45] LABS: HCT 51.6 % (39.0-53.0); HGB 17.4 gm/dL (13.0-17.5); MCH 30.3 pg (25.0-35.0); MCHC 33.7 g/dL (31.0-37.0); MCV 89.9 fL (80.0-100.0); Mean Platelet Volume 7.2; Platelet Count 246 k/uL (150-450); RBC 5.74 m/uL (4.30-5.90); RDW 13.5 % (11.5-15.5); WBC 7.6 k/uL (3.8-10.6)
[2020-12-07 07:50] LABS: Albumin 3.9 g/dL (3.5-5.0); Calcium 9.5 mg/dL (8.4-10.2); Potassium 4.6 mmol/L (3.5-5.1); Total Bilirubin 0.8 mg/dL (0.2-1.3); Total Protein 6.9 g/dL (6.3-8.2)
[2020-12-07] MEDS: ASPIRIN 81 MG PO SCH (08:24)
[2020-12-07] MEDS: METOPROLOL TARTRATE 25 MG TAB PO SCH (08:31)
[2020-12-07] MEDS: LOSARTAN 50 MG TAB PO SCH (08:31)
[2020-12-07] MEDS: ATORVASTATIN 80 MG TAB PO SCH (08:31)
[2020-12-07] MEDS: ALPRAZolam 0.5 MG TAB PO PRN (08:33)
[2020-12-07] MEDS ORDERED: IV FLUID CONTINUATION 1,000 ML IV ONE (09:43)
[2020-12-07] MEDS ORDERED: PROTAMINE SULFATE 10 MG/ML 5 ML VIAL IV ONE (10:58)
[2020-12-07] MEDS ORDERED: SUCCINYLCHOLINE CHLORIDE 100 MG/5 ML SYR IV ONE (10:58)
[2020-12-07] MEDS ORDERED: fentaNYL (PF) 50 MCG/ML 50 ML VIAL ONE (10:58)
[2020-12-07] MEDS ORDERED: VECURONIUM 10 MG VIAL IV ONE (10:58)
[2020-12-07] MEDS ORDERED: MIDAZOLAM 2 MG/2 ML VIAL ONE (10:58)
[2020-12-07] MEDS ORDERED: MAGNESIUM SULFATE 4 MEQ/ML 10ML VIAL ONE (10:58)
[2020-12-07] MEDS ORDERED: PROPOFOL 10 MG/ML 20 ML VIAL IV ONE (10:58)
[2020-12-07] MEDS ORDERED: ALBUMIN HUMAN 5% (25gm) 500 ML VIAL IVPB ONE (10:58)
[2020-12-07] MEDS ORDERED: HEPARIN SODIUM,PORCINE 10,000 UNIT/ML 1 ML VIAL ONE (10:58)
[2020-12-07] MEDS ORDERED: NITROGLYCERIN-D5W PMX 50 MG/250 ML BOTTLE IV ONE (10:58)
[2020-12-07] MEDS ORDERED: SODIUM CHLORIDE 0.9% IRRIG 1,000 ML BTL IRRIGATION ONE (10:59)
[2020-12-07 12:04] LABS: ABG Base Excess 0.3 mmol/L; ABG Glucose Whole Blood 95 mg/dL (75-99); ABG HCO3 26 mmol/L (21-25); ABG Hematocrit 50 % (34.0-46.0); ABG Ionized Calcium 4.7 mg/dL (4.5-5.3); ABG Lactic Acid Whole Blood 0.8 mmol/L (0.5-1.6); ABG PCO2 45 mmHg (35-45); ABG PH 7.37 (7.35-7.45); ABG PO2 382 mmHg (83-108); ABG Potassium Whole Blood 4.9 mmol/L (3.4-4.5); ABG Sodium Whole Blood 139 mmol/L (135-146); ABG TCO2 28 mmol/L (19-24)
--- NOTE | 2020-12-07 13:21 | P.ANPRN ---
Procedure Note - Anesthesia - Invasive Line Right Arterial Line Time Out Performed: Yes Date of Procedure: 12/07/20 Location of Patient: PreOp Preparation: Sterile Prep, Sterile Dressing Arterial Line Location: Radial Ultrasound Used: No Purpose - Visualization and Identification of Vasculature: No Needle Guage: 20 Narrative: Informed consent obtained from the patient. Procedure was performed under complete aseptic precautions. The right wrist is slightly extended and placed on a roll of cloth. Radial artery palpated and appeared to have a intact collateral circulation. Front of the wrist was cleaned with ChloraPrep. It was draped and 2 mL of 1% lidocaine was infiltrated and ability into the front of the wrist. A 20-gauge two and half inch Arrow arterial catheter was inserted and a bright red blood/back was noticed. It was connected to the pressure monitoring line and the flashback was confirmed. The line was sutured into the skin. Tegaderm dressing was applied. Patient tolerated the procedure very well with no apparent complications. Right Central Line Time Out Performed: Yes Date of Procedure: 12/07/20 Location of Patient: PreOp Preparation: Sterile Prep, Sterile Dressing Ultrasound Used: Yes Purpose - Visualization and Identification of Vasculature: Yes Image Stored and Saved: Yes Narrative: Informed consent obtained. Central line placement per sterile protocol utilized. Right Internal jugular vein cannulated under aseptic precautions. 3cc 1% lidocaine infiltrated initially after cleaning with iodine based prep and draping. Ultrasound used to locate the vein and selginger technique used. 9Fr introduced sheath inserted and after the finding the needle with police pilot needle/catheter. After the insertion of PA Catheter the line is dressed with biopatch and tegaderm. Patient tolerated the procedure well. Right Berry Garth Time Out Performed: Yes Date of Procedure: 12/07/20 Location of Patient: PreOp Preparation: Sterile Prep, Sterile Dressing Narrative: Central line placement per sterile protocol utilized.8Ff PA catheter threaded through the Right IJ introducer sheath under asepsis with continuous waveform monitoring. Catheter at 58 cms preet.
--- NOTE | 2020-12-07 13:24 | P.ANPRN ---
Procedure Note - Anesthesia - DARREL Intraop Pre Bypass DARRLE Intraop - Anesthesia Indication: Ischemia monitoring, CABG surgery Date of Procedure: 12/07/20 Pre-operative Diagnosis: Coronary artery disease Post-operative Diagnosis: Coronary artery bypass graft Surgeon: Bruno Driver Left Ventricle: Slight hypertrophy, normal systolic function and ejection fraction of 55-60% Ejection Fraction: Normal Regional Wall Motion Abnormalities: None Left Ventricle Hypertrophy: Yes (Mild) R. Ventricle Function: Normal Aortic Valve: Peak gradient 14 mm of Hg and Mean 6 mm of Hg Anatomy: Trileaflet Aortic Stenosis: Mild Aortic Regurgitation: None Mitral Stenosis: None Mitral Regurgitation: Mild Tricuspid Stenosis: None Tricuspid Regurgitation: Trace Pulmonic Stenosis: None Pulmonic Regurgitation: None R. Atrial Dilation: No R. Atrial PFO: No L. Atrial Dilation: No Aortic Dissection: No Aortic Calcification: None Plural Effusion: None - DARREL Intraop Post Bypass DARREL Intraop Post Bypass Procedure Performed: Coronary artery bypass graft Ejection Fraction: Normal Regional Wall Motion Abnormalities: None R. Ventricle Function: Normal Aortic Valve: Unchanged Mitral Valve: Unchanged Tricuspid: Unchanged Pulmonic: Unchanged Aortic Dissection: No
[2020-12-07] MEDS ORDERED: SODIUM CHLORIDE 0.9% 500 ML 500 ML with HEPARIN SODIUM,PORCINE 5,000 UNIT IV ONE ×2 (13:32)
[2020-12-07] MEDS ORDERED: ceFAZolin 1,000 MG in SODIUM CHLORIDE 0.9% 1,000 ML IRRIGATION ONE (13:32)
[2020-12-07 13:41] LABS: ABG Base Excess -2.3 mmol/L; ABG Glucose Whole Blood 117 mg/dL (75-99); ABG HCO3 24 mmol/L (21-25); ABG Hematocrit 48 % (34.0-46.0); ABG Ionized Calcium 4.7 mg/dL (4.5-5.3); ABG Lactic Acid Whole Blood 0.8 mmol/L (0.5-1.6); ABG Oxygen Saturation 99.9 % (94-97); ABG PCO2 44 mmHg (35-45); ABG PH 7.34 (7.35-7.45); ABG PO2 168 mmHg (83-108); ABG Potassium Whole Blood 4.5 mmol/L (3.4-4.5); ABG Sodium Whole Blood 138 mmol/L (135-146); ABG TCO2 25 mmol/L (19-24)
[2020-12-07 14:18] LABS: ABG Base Excess -3.6 mmol/L; ABG Glucose Whole Blood 112 mg/dL (75-99); ABG HCO3 22 mmol/L (21-25); ABG Hematocrit 42 % (34.0-46.0); ABG Ionized Calcium 4.4 mg/dL (4.5-5.3); ABG Lactic Acid Whole Blood 0.7 mmol/L (0.5-1.6); ABG Oxygen Saturation 99.9 % (94-97); ABG PCO2 39 mmHg (35-45); ABG PH 7.36 (7.35-7.45); ABG PO2 214 mmHg (83-108); ABG Potassium Whole Blood 3.9 mmol/L (3.4-4.5); ABG Sodium Whole Blood 139 mmol/L (135-146); ABG TCO2 23 mmol/L (19-24)
[2020-12-07 14:47] LABS: ABG Base Excess -3.3 mmol/L; ABG Glucose Whole Blood 103 mg/dL (75-99); ABG HCO3 22 mmol/L (21-25); ABG Hematocrit 41 % (34.0-46.0); ABG Ionized Calcium 4.4 mg/dL (4.5-5.3); ABG Lactic Acid Whole Blood 0.8 mmol/L (0.5-1.6); ABG Oxygen Saturation 99.9 % (94-97); ABG PCO2 40 mmHg (35-45); ABG PH 7.35 (7.35-7.45); ABG PO2 204 mmHg (83-108); ABG Potassium Whole Blood 4.1 mmol/L (3.4-4.5); ABG Sodium Whole Blood 139 mmol/L (135-146); ABG TCO2 23 mmol/L (19-24)
--- NOTE | 2020-12-07 15:20 | P.PN ---
Subjective Progress Note Date: 12/07/20 Patient is scheduled for open heart surgery today. No acute events overnight. Objective - Vital Signs Vital signs: Vital Signs Temp 98.7 F 12/07/20 09:53 Pulse 62 12/07/20 09:53 Resp 18 12/07/20 09:53 BP 150/80 12/07/20 09:54 Pulse Ox 97 12/07/20 09:53 Intake & Output 12/06/20 12/07/20 12/07/20 18:59 06:59 18:59 Intake Total 480 107 Output Total 400 Balance 80 107 Weight 113.9 kg Intake: IV 107 Oral 480 Output: Urine 400 Other: Voiding Method Toilet Toilet Toilet # Voids 1 1 - Exam General: The patient is awake and alert, in no distress Eye: there is normal conjunctiva bilaterally. Neck: The neck is supple, there is no JVD. Cardiovascular: Normal S1-S2, no S3-S4, no murmurs. Respiratory: Lungs clear to auscultation bilaterally Gastrointestinal: Abdomen is soft, nontender Musculoskeletal: There is no pedal edema. Neurological:. Speech is normal. Skin: Skin is warm and dry - Labs CBC & Chem 7: 12/07/20 07:00 12/07/20 07:00 Labs: Abnormal Lab Results - Last 24 Hours (Table) 12/06/20 12/07/20 12/07/20 Range/Units 06:47 07:00 07:00 APTT 63.3 H (22.0-30.0) sec Glucose 106 H (74-99) mg/dL Crossmatch See Detail Assessment and Plan Assessment: This is a 65-year-old male with past medical history noted below who presented to the emergency room with chest pain. Patient was evaluated at [facility] and transferred to our facility for cardiology evaluation. Below is a list of his medical problems. 1. Multivessel coronary artery disease noted on left heart catheterization involving total occlusion of the RCA, severe disease involving the ostial left circumflex and proximal LAD. Patient was seen and evaluated by cardiac surgery. Plan for CABG today. 2. Non-ST elevation myocardial infarction, on presentation, treated with optimal medical management. Echocardiogram showed EF of 55-60%. No significant valvular abnormalities. Basal inferior left ventricular wall is akinetic 3. Essential hypertension, blood pressure within acceptable range. Resume home dose of losartan 50 mg daily tomorrow. Discontinue hydrochlorothiazide 4. Hypokalemia, replaced. We will continue to monitor closely 5. Leukocytosis, resolved. Resolved. mostly reactive Today, I reviewed his medication list and lab work results. Plan for CABG today
[2020-12-07 15:28] LABS: ABG Base Excess -3.1 mmol/L; ABG Glucose Whole Blood 114 mg/dL (75-99); ABG HCO3 22 mmol/L (21-25); ABG Hematocrit 40 % (34.0-46.0); ABG Ionized Calcium 4.5 mg/dL (4.5-5.3); ABG Lactic Acid Whole Blood 0.8 mmol/L (0.5-1.6); ABG Oxygen Saturation 99.7 % (94-97); ABG PCO2 40 mmHg (35-45); ABG PH 7.35 (7.35-7.45); ABG PO2 178 mmHg (83-108); ABG Sodium Whole Blood 139 mmol/L (135-146); ABG TCO2 24 mmol/L (19-24)
[2020-12-07] MEDS ORDERED: AMIODARONE 450 MG in DEXTROSE 5% IN WATER 250 ML IV PRN ×2 (16:26)
[2020-12-07] MEDS ORDERED: CALCIUM GLUCONATE 2 GM in SODIUM CHLORIDE 0.9% 100 ML IVPB PRN (16:26)
[2020-12-07] MEDS ORDERED: hydrALAZINE HCL 20 MG/ML 1 ML VIAL IVP PRN (16:26)
[2020-12-07] MEDS ORDERED: AMIODARONE 360 MG in DEXTROSE 5% IN WATER 200 ML IV PRN ×2 (16:26)
[2020-12-07] MEDS ORDERED: ONDANSETRON 4 MG/2 ML VIAL IVP PRN (16:26)
[2020-12-07] MEDS ORDERED: DEXTROSE 5% IN WATER 100 ML with AMIODARONE 150 MG IV PRN (16:26)
[2020-12-07] MEDS ORDERED: Potassium Replacement Protocol 1 EACH MISC MISCELLANE PRN (16:26)
[2020-12-07] MEDS ORDERED: IPRATROPIUM-ALBUTEROL 3 ML NEB INHALATION PRN (16:26)
[2020-12-07] MEDS ORDERED: DEXMEDETOMIDINE/0.9% NACL(PMX) 400 MCG in EMPTY BAG 1 BAG IV SCH (16:26)
[2020-12-07] MEDS ORDERED: Phosphorus Replacement Protoco 1 EACH MISC MISCELLANE PRN (16:26)
[2020-12-07] MEDS ORDERED: METOCLOPRAMIDE 5 MG/ML 2 ML VIAL IVP PRN (16:26)
[2020-12-07] MEDS ORDERED: Magnesium Replacement Protocol 1 EACH MISC MISCELLANE PRN (16:26)
[2020-12-07] MEDS ORDERED: BENZOCAINE/MENTHOL LOZENG 1 EACH LOZENGE MUCOUS MEM PRN (16:26)
[2020-12-07] MEDS: LACTATED RINGERS 1,000 ML IV SCH (16:38)
--- NOTE | 2020-12-07 16:40 | P.OP ---
Date of Procedure: 12/07/20 Preoperative Diagnosis: Coronary artery disease Postoperative Diagnosis: Same Procedure(s) Performed: Off pump CABG 4 with sequential AUGUSTINE to intermediate and LAD, left radial artery graft to obtuse marginal, saphenous vein graft to PDA. Occlusion of left atrial appendage with 35 mm AtriCure clip. Epi-aortic ultrasonography. Endovascular harvest left radial artery and left greater saphenous vein from groin. Anesthesia: GETA Surgeon: Bruno Driver Easement Worker #1: Jose Forbes Easement Worker #2: Reji Abdul Estimated Blood Loss (ml): 200 IV fluids (ml): 1,500 Urine output (ml): 300 Pathology: none sent Condition: stable Disposition: ICU Indications for Procedure: 65-year-old male presented with angina for urgent catheterization in transfer from [facility]. Severe three-vessel coronary artery disease with left main component encountered with occlusion of the right coronary artery and slow KATIA 2 flow in the LAD. Urgent CABG was recommended and scheduled. Operative Findings: Good conduits, good targets. Ascending aorta was normal by epi-aortic ultrasound. There was no thrombus in the left atrial appendage by DARREL. No significant valvular heart disease noted on DARREL. Ventricular function was mildly diminished and improved after avascularization. Description of Procedure: The patient was brought to the operating room, placed supine on the operating table, anesthetized and intubated. [place]-Garth catheter and arterial line had been placed in preoperative hold. Rodriguez catheter was placed after induction of anesthesia. The anterior torso and bilateral lower extremities and left upper extremity were sterilely prepped and draped. Greater saphenous vein was harvested from knee to groin on the left. The left radial artery was harvested as well. Both harvests were performed with endovascular harvest technique. Simultaneous sternotomy was performed a left hemisternum retracted upwards and the left internal mammary artery harvested on a vascularized pedicle, left intact on its origin from the subclavian and divided distally. Standard sternal retractor was placed. The left pleural space was drained with a 32-Cameroonian chest tube. Pericardium was opened in the midline and the heart was exposed with pericardial sutures. 35mm AtriCure clip was applied to the base of the left atrial appendage. Suction stabilization was used during distal anastomosis. The patient was systemically heparinized and ACT is maintained greater than 250 during grafting. Began with a sequential AUGUSTINE to the intermediate and LAD after preparing the radial and vein conduits. We first performed a [id number] anastomosis between the AUGUSTINE and the intermediate coronary artery. The intermediate coronary artery was a 1.5 mm vessel with good quality. Side to side anastomosis was constructed with running 8-0 Prolene suture. 1.5 mm flow through was used to control the flow of blood during the anastomosis and was removed on completion of the anastomosis effectively probing proximal distal portion of the anastomosis. Bulldog clamp was removed from proximal to distal on the AUGUSTINE and good hemostasis again noted at the site of the anastomosis. The KEELEY pedicle was tacked surrounding epicardium with 6-0 silk. Next the distal anastomosis between the AUGUSTINE to the LAD was constructed with running 8-0 Prolene suture. The LAD was a 1.75-2 mm vessel of good quality. It was opened and blood flow control with a 1.5 mm flow through. Anastomosis constructed with 8-0 Prolene suture. Completion anastomosis the flow through was removed 50 probe the proximal distal portion of the anastomosis. Suture was tied with good resultant hemostasis. Inflow was opened and the fluid was noted to fill well. Graft lay well without kinking. The KEELEY pedicle was tacked surrounding epicardium with 6-0 silk suture. Next the inferior wall the heart was exposed. The PDA was stabilized and opened. It was 1.5 mm vessel of good quality. 1.5 mm flow through was placed in the saphenous vein was anastomosis end-to-side fashion with running 7-0 Prolene suture. On completion anastomosis the flow through was removed effectively probing the proximal distal portion anastomosis. Suture was tied with good result and hemostasis. Good backbleeding was noted into the vein graft controlled with a bulldog clamp. Next lateral wall the heart was exposed and the major marginal branch was stabilized. It was opened and blood flow control with a 1.5 mm flow through. It was a 1.75 mm vessel. Left radial artery was anastomosed in end-to-side fashion with running 7-0 Prolene suture. On completion anastomosis flow through was removed 50 probe the proximal distal portion anastomosis. Suture was tied with good result and hemostasis. Backbleeding from the radial artery graft was controlled with a bulldog clamp. Heart was lowered into anatomic position. Epi-aortic ultrasonography was performed and noted to be normal. Blood pressure was controlled by anesthesia. Partial-occlusion clamp was placed on the ascending aorta and 24 mm punch holes created in the ascending aorta. Proximal anastomoses were constructed to these with running 6-0 Prolene suture. On completion of the anastomoses there were de-aired by backbleeding through the radial artery grafted needle holes of the vein graft. Partial-occlusion clamp was removed. Good hemostasis was noted throughout. Heparin was reversed with protamine. After assuring good hemostasis the mediastinum was irrigated with warm antibiotic solution and drained with a 36-Cameroonian chest tube. Sternum was closed with 8 sternal wires. Fascia was closed with 0 Ethibond. Subcutaneous and subcuticular layers in the leg chest normal closed with layers of Vicryl s uture. Dry sterile dressings were applied. Patient was transferred to ICU in stable condition.
[2020-12-07 16:47] LABS: Glucose,Whole Blood 107 mg/dL (75-99)
[2020-12-07 17:02] LABS: Ionized Calcium 4.8 mg/dL (4.5-5.3)
[2020-12-07 17:05] LABS: ABG HCO3 22 mmol/L (21-25); ABG Oxygen Saturation 95.3 % (94-97); ABG PCO2 42 mmHg (35-45); ABG PH 7.33 (7.35-7.45); ABG PO2 82 mmHg (83-108); ABG TCO2 23 mmol/L (19-24); Allen Test Performed? Yes
[2020-12-07 17:11] LABS: Glucose,Whole Blood 100 mg/dL (75-99)
[2020-12-07 17:12] LABS: Potassium 3.9 mmol/L (3.5-5.1)
[2020-12-07 17:13] LABS: ALT 29 U/L (4-49); AST 31 U/L (17-59); African American GFR (CKD) >90 (>60 ml/min/1.73 sqM); Albumin 3.1 g/dL (3.5-5.0); Alkaline Phosphatase 45 U/L (38-126); Anion Gap 8 mmol/L; Blood Urea Nitrogen 14 mg/dL (9-20); Calcium 7.9 mg/dL (8.4-10.2); Carbon Dioxide 21 mmol/L (22-30); Chloride 109 mmol/L (98-107); Glucose 115 mg/dL (74-99); INR 1.1 (<1.2); Magnesium 2.2 mg/dL (1.6-2.3); Non-African American GFR(CKD) 86 (>60 ml/min/1.73 sqM); Partial Thromboplastin Time 28.3 sec (22.0-30.0); Prothrombin Time 11.7 sec (9.0-12.0); Sodium 138 mmol/L (137-145); Total Bilirubin 0.8 mg/dL (0.2-1.3); Total Protein 5.3 g/dL (6.3-8.2)
--- NOTE | 2020-12-07 17:23 | XR ---
EXAMINATION TYPE: XR chest 1V portable DATE OF EXAM: 12/07/2020 COMPARISON: 12/04/2020 HISTORY: Cardiac surgery TECHNIQUE: Single view FINDINGS: There is endotracheal tube 4.5 cm from the linsey. There is some mild atelectasis in the lo wer lung rodriguez. There is drainage over the heart. There is right jugular catheter with tip in the ma in pulmonary artery. There is no pneumothorax. Trachea is midline. There are sternal wires. IMPRESSION: There is some mild atelectasis in the mid lung rodriguez. No heart failure.
[2020-12-07 17:40] LABS: Basophils % (A) 0 %; Eosinophils # (A) 0.1 k/uL (0-0.7); Eosinophils % (A) 0 %; HCT 39.1 % (39.0-53.0); Lymphocytes # (A) 1.5 k/uL (1.0-4.8); Lymphocytes % (A) 9 %; MCH 31.2 pg (25.0-35.0); MCHC 34.5 g/dL (31.0-37.0); MCV 90.2 fL (80.0-100.0); Mean Platelet Volume 7.2; Monocytes # (A) 0.6 k/uL (0-1.0); Monocytes % (A) 4 %; Neutrophils # (A) 13.4 k/uL (1.3-7.7); Neutrophils % (A) 85 %; Platelet Count 181 k/uL (150-450); RBC 4.33 m/uL (4.30-5.90); RDW 13.8 % (11.5-15.5); WBC 15.7 k/uL (3.8-10.6)
[2020-12-07 17:42] LABS: HGB 13.5 gm/dL (13.0-17.5)
[2020-12-07] MEDS: NITROGLYCERIN-D5W PMX 50 MG in DEXTROSE/WATER 1 250ML.BAG IV SCH (17:44)
[2020-12-07] MEDS: KETOROLAC 15 MG/ML 1 ML VIAL IVP SCH ×2 (17:55→23:47)
[2020-12-07] MEDS: ACETAMINOPHEN IV (For NPO) 1,000 MG in EMPTY BAG 1 BAG IVPB SCH ×2 (17:55→23:45)
[2020-12-07 18:03] LABS: Glucose,Whole Blood 111 mg/dL (75-99)
[2020-12-07 18:54] LABS: Glucose,Whole Blood 102 mg/dL (75-99)
[2020-12-07] MEDS ORDERED: BENZOCAINE SPRAY 1 CAN ONE (19:19)
[2020-12-07] MEDS ORDERED: fentaNYL (PF) 50 MCG/ML 2 ML AMP IVP ONE (19:20)
[2020-12-07] MEDS ORDERED: IPRATROPIUM-ALBUTEROL 3 ML NEB INHALATION SCH (20:00)
[2020-12-07] MEDS: ALBUMIN HUMAN 5% 250 ML in EMPTY BAG 1 BAG IVPB PRN (20:01)
[2020-12-07 20:17] LABS: Glucose,Whole Blood 118 mg/dL (75-99)
[2020-12-07 20:41] LABS: Basophils % (A) 0 %; Eosinophils % (A) 0 %; HCT 39.8 % (39.0-53.0); HGB 13.9 gm/dL (13.0-17.5); Lymphocytes % (A) 7 %; MCH 31.1 pg (25.0-35.0); MCHC 34.8 g/dL (31.0-37.0); MCV 89.2 fL (80.0-100.0); Mean Platelet Volume 7.3; Monocytes # (A) 0.7 k/uL (0-1.0); Monocytes % (A) 5 %; Neutrophils # (A) 12.6 k/uL (1.3-7.7); Neutrophils % (A) 87 %; Platelet Count 219 k/uL (150-450); RBC 4.46 m/uL (4.30-5.90); RDW 13.5 % (11.5-15.5); WBC 14.6 k/uL (3.8-10.6)
[2020-12-07 21:15] LABS: Glucose,Whole Blood 107 mg/dL (75-99)
[2020-12-07] MEDS: POTASSIUM CHLORIDE 10 MEQ in WATER FOR INJECTION 1 100ML.BAG IVPB SCH ×2 (21:22→22:58)
[2020-12-07] MEDS ORDERED: METOPROLOL TARTRATE 12.5 MG TAB PO SCH (22:00)
[2020-12-07 22:09] LABS: Glucose,Whole Blood 104 mg/dL (75-99)
[2020-12-07 23:08] LABS: Glucose,Whole Blood 100 mg/dL (75-99)
[2020-12-07 23:21] LABS: Basophils % (A) 0 %; Eosinophils % (A) 0 %; HCT 39.6 % (39.0-53.0); HGB 13.9 gm/dL (13.0-17.5); Lymphocytes # (A) 0.6 k/uL (1.0-4.8); Lymphocytes % (A) 5 %; MCH 31.2 pg (25.0-35.0); MCHC 35.2 g/dL (31.0-37.0); MCV 88.6 fL (80.0-100.0); Mean Platelet Volume 7.3; Monocytes # (A) 0.8 k/uL (0-1.0); Monocytes % (A) 7 %; Neutrophils # (A) 10.5 k/uL (1.3-7.7); Neutrophils % (A) 88 %; Platelet Count 186 k/uL (150-450); RBC 4.47 m/uL (4.30-5.90); RDW 13.5 % (11.5-15.5)
[2020-12-07] MEDS: HEPARIN SODIUM,PORCINE/PF 5,000 UNIT/0.5 ML SYRINGE SQ SCH (23:46)
[2020-12-07] MEDS: PRAMIPEXOLE 0.5 MG TAB PO SCH (23:48)
[2020-12-08 00:04] LABS: Glucose,Whole Blood 104 mg/dL (75-99)
[2020-12-08 02:14] LABS: Glucose,Whole Blood 107 mg/dL (75-99)
[2020-12-08] MEDS ORDERED: HYDROcodone/APAP 5-325MG 1 EACH TAB PO PRN (04:13)
[2020-12-08] MEDS: HYDROcodone/APAP 5-325MG 1 EACH TAB PO PRN ×4 (04:34→21:42)
[2020-12-08 04:45] LABS: Glucose,Whole Blood 115 mg/dL (75-99)
[2020-12-08 04:55] LABS: Basophils % (A) 0 %; Eosinophils # (A) 0.1 k/uL (0-0.7); Eosinophils % (A) 1 %; HCT 41.1 % (39.0-53.0); HGB 14.2 gm/dL (13.0-17.5); Lymphocytes # (A) 1.6 k/uL (1.0-4.8); Lymphocytes % (A) 14 %; MCH 30.7 pg (25.0-35.0); MCHC 34.5 g/dL (31.0-37.0); MCV 88.9 fL (80.0-100.0); Mean Platelet Volume 7.1; Monocytes # (A) 0.6 k/uL (0-1.0); Monocytes % (A) 5 %; Neutrophils # (A) 9.5 k/uL (1.3-7.7); Neutrophils % (A) 79 %; Platelet Count 216 k/uL (150-450); RBC 4.62 m/uL (4.30-5.90); RDW 13.5 % (11.5-15.5)
[2020-12-08 05:22] LABS: Ionized Calcium 4.6 mg/dL (4.5-5.3)
[2020-12-08 05:31] LABS: ALT 29 U/L (4-49); AST 36 U/L (17-59); African American GFR (CKD) >90 (>60 ml/min/1.73 sqM); Albumin 3.4 g/dL (3.5-5.0); Alkaline Phosphatase 43 U/L (38-126); Anion Gap 8 mmol/L; Blood Urea Nitrogen 13 mg/dL (9-20); Calcium 8.4 mg/dL (8.4-10.2); Carbon Dioxide 22 mmol/L (22-30); Chloride 106 mmol/L (98-107); Glucose 108 mg/dL (74-99); Magnesium 2.1 mg/dL (1.6-2.3); Non-African American GFR(CKD) >90 (>60 ml/min/1.73 sqM); Potassium 4.3 mmol/L (3.5-5.1); Sodium 136 mmol/L (137-145); Total Bilirubin 1.3 mg/dL (0.2-1.3); Total Protein 5.8 g/dL (6.3-8.2)
[2020-12-08] MEDS: ALBUMIN HUMAN 5% 250 ML in EMPTY BAG 1 BAG IVPB PRN (05:52)
[2020-12-08 06:03] LABS: Glucose,Whole Blood 120 mg/dL (75-99)
[2020-12-08] MEDS: KETOROLAC 15 MG/ML 1 ML VIAL IVP SCH ×4 (06:50→23:35)
[2020-12-08 07:02] LABS: Glucose,Whole Blood 100 mg/dL (75-99)
[2020-12-08] MEDS: IPRATROPIUM-ALBUTEROL 3 ML NEB INHALATION SCH ×4 (07:27→20:28)
--- NOTE | 2020-12-08 08:11 | XR ---
EXAMINATION TYPE: XR chest 1V portable DATE OF EXAM: 12/08/2020 COMPARISON: 12/07/2020 HISTORY: Post cardiac surgery TECHNIQUE: Single frontal view of the chest is obtained. FINDINGS: ET and NG tube have been removed. [place]-Garth catheter is noted and there is postoperative c hange. Bilateral subsegmental consolidation with small effusion. No pneumothorax. No overt failure. C hest tube drains stable. IMPRESSION: Postoperative changes with basilar atelectasis or infiltrate.
[2020-12-08] MEDS: HEPARIN SODIUM,PORCINE/PF 5,000 UNIT/0.5 ML SYRINGE SQ SCH ×3 (08:28→23:36)
[2020-12-08] MEDS: ATORVASTATIN 40 MG TAB PO SCH (08:28)
[2020-12-08] MEDS: METOPROLOL TARTRATE 25 MG TAB PO SCH ×2 (08:29→21:41)
[2020-12-08] MEDS: CLOPIDOGREL 75 MG TAB PO SCH (08:29)
[2020-12-08] MEDS: ASPIRIN 325 MG TAB PO SCH (08:29)
[2020-12-08] MEDS ORDERED: PANTOPRAZOLE 40 MG/10 ML VIAL IVP SCH (09:00)
[2020-12-08] MEDS ORDERED: MAGNESIUM HYDROXIDE 2,400 MG/10 ML CUP PO PRN (09:00)
[2020-12-08] MEDS ORDERED: bisacodyL 10 MG SUPP RECTAL PRN (09:00)
[2020-12-08] MEDS ORDERED: METOPROLOL TARTRATE 12.5 MG TAB PO SCH (09:00)
[2020-12-08] MEDS ORDERED: amLODIPine 2.5 MG TAB PO SCH (09:00)
[2020-12-08] MEDS: LACTATED RINGERS 1,000 ML IV SCH (09:39)
[2020-12-08 09:57] LABS: Glucose,Whole Blood 123 mg/dL (75-99)
--- NOTE | 2020-12-08 10:20 | P.PN ---
Subjective Progress Note Date: 12/08/20 Principal diagnosis: Symptomatically multivessel coronary artery disease, non-ST elevated myocardial infarction this admission. Past medical history significant for hypertension, h yperlipidemia, previous history of myocardial infarction around 20 years ago without any previous intervention history, daily marijuana use with vaping with a preoperative FEV1 50% of predicted value, family history of early onset coronary artery disease with several of his having heart attacks in their early 50s and remote history of smoking dependence which he quit over 2 years ago. Unvaccinated against COVID. POD #1 Off pump CABG 4 with sequential AUGUSTINE to intermediate and LAD, left radial artery graft to obtuse marginal, saphenous vein graft to PDA. Occlusion of left atrial appendage with 35 mm AtriCure clip. Epi-aortic ultrasonography. Endovascular harvest left radial artery and left greater saphenous vein from groin. The patient is seen in follow-up today 12/08/2020 at his bedside in the intensive care unit. Currently he is sitting up to the bedside chair, is awake, alert and oriented 3 and is in no acute apparent distress. Denies any complaints of pain or shortness of breath at this time. He was successfully extubated at 8:17 PM last evening and is currently on 2 L nasal cannula with oxygen saturation is 95%. Achieving 1000 mL on his incentive spirometry up encouragement. He remains hemodynamically stable and is currently on no inotropic or pressure support. Bedside telemetry showing normal sinus rhythm heart rate 92 BPM. Right IJ and Cordis remains in place with current hemodynamic showing a cardiac output 6.1, cardiac index 2.6, PA pressures 33/14 and CVP 7 mmHg. Mediastinal and left pleural chest tubes remain in place to low continuous wall suction -20 cm H2O. No air leak is present, draining thin serosanguineous drainage with 420 mL output in the last 8 hours and 780 mL output since surgery. Objective - Vital Signs Vital signs: Vital Signs Temp 100.0 F H 12/08/20 04:00 Pulse 88 12/08/20 07:41 Resp 33 H 12/08/20 07:00 BP 132/80 12/08/20 07:00 Pulse Ox 95 12/08/20 06:15 Intake & Output 12/07/20 12/08/20 12/08/20 18:59 06:59 18:59 Intake Total 901.311 1540.707 59 Output Total 2049 2009 50 Balance -1711.755 -791.293 9 Weight 115.666 kg Intake: IV 303 908 59 .9 CO/CI 40 80 .9NS pressure bag 6 78 9 ACETAMINOPHEN IV (For NPO 100 ) 1,000 mg In Empty Bag 1 bag @ 400 mls/hr IVPB Q6HR [facility] Rx#:[id number] Lactated Ringers 1,000 ml 150 600 50 @ 20 mls/hr IV .Q24H [facility] Rx#:[id number] ceFAZolin 2 gm In Sodium 50 Chloride 0.9% 50 ml @ 100 mls/hr IVPB ONCE ONE Rx# :[id number] Intake, IV Titration 35.245 70.707 Amount Dexmedetomidine/0.9% NaCl 29.426 (Pmx) 400 mcg In Empty Bag 1 bag @ Titrate IV . Q0M [facility] Rx#:[id number] Nitroglycerin-D5w Pmx 50 0.05 3.125 mg In Dextrose/Water 1 250ml.bag @ 5 MCG/MIN 1.5 mls/hr IV .Q24H [facility] Rx#: [id number] propofoL 1,000 mg In 35.195 38.156 Empty Bag 1 bag @ Titrate IV .Q0M [facility] Rx#: [id number] Oral 240 Output: Chest Tube Drainage 125 590 20 Chest Tube Mediastinal/ 125 590 20 Left Pleural Drainage 40 Left Wrist 40 Urine 925 1380 30 Estimated Blood Loss 1000 Other: Voiding Method Indwelling Catheter Indwelling Catheter ABP, PAP, CO, CI - Last Documented Arterial Blood Pressure 103/86 Pulmonary Artery Pressure 19/3 Cardiac Output 6.1 Cardiac Index 2.6 - Exam CONSTITUTIONAL: Sitting up to the bedside chair in the intensive care unit, appears comfortable, cooperative, no apparent acute distress. HEENT: Neck is supple, no JVD, no lymphadenopathy. Right IJ Cordis and [place]- Garth catheter in place and functioning. RESPIRATORY: Lungs sounds essentially clear throughout, diminished to his bilateral bases. Respirations are symmetrical and nonlabored. Currently on 2 L nasal cannula with oxygen saturations 95%. Able to achieve 1000 mL on his incentive spirometry. Strong cough. CARDIOVASCULAR: Regular rhythm and rate. S1 and S2 present, negative for S3, gallop or murmur. Sternum is stable. Palpable peripheral pulses bilaterally, +1 edema to his bilateral lower extremities. No calf pain or tenderness noted. Heart hugger in place with patient demonstrating appropriate use. Knee-high MARLY hose and sequential compression devices in place to his bilateral lower extremities. GASTROINTESTINAL: Abdomen soft, nontender, nondistended. Hypoactive bowel sounds present 4 quadrants. Tolerating diet. Passing flatus. No guarding or rigidity. GENITOURINARY: Rodriguez present draining clear, yellow urine. Output 1040 mL in the last 8 hours. INTEGUMENTARY: Skin is warm and dry with no evidence of clubbing or cyanosis. Midline sternal incision clean dry and well approximated, covered with dry intact dressing. Left lower extremity EVH site well approximated without redness or drainage. Left arm radial artery harvest sites clean, dry and approximated. No drainage or redness is present. NEUROLOGIC: Cranial nerves II through XII intact. No focal deficits. MUSKULOSKELETAL: Able to move all extremities, strength equal bilaterally, generalized weakness. PSYCHIATRIC: Alert and oriented to person place and time, appropriate affect, intact judgment and insight. INVASIVE LINES AND TUBES: Mediastinal/left pleural chest tubes present and connected to low continuous wall suction, no air leaks present. Mediastinal and left pleural chest tubes with 420 mL of thin serosanguineous drainage overnight, 780 mL output since surgery. Right internal jugular [place]/Cordis, right radial arterial line present. Last CO 6.1, CI 2.6, PA 33/14 and CVP 7 mmHg. Left arm APRIL drain in place with scant thin serosanguineous drainage, 10 mL output in the last 8 hours. - Labs CBC & Chem 7: 12/08/20 04:35 12/08/20 04:35 Labs: Abnormal Lab Results - Last 24 Hours (Table) 12/06/20 12/07/20 12/07/20 Range/Units 06:47 12:07 13:44 WBC (3.8-10.6) k/uL Neutrophils # (1.3-7.7) k/uL Lymphocytes # (1.0-4.8) k/uL ABG pH 7.34 L (7.35-7.45) ABG pO2 382 H 168 H (83-108) mmHg ABG HCO3 26 H (21-25) mmol/L ABG Total CO2 28 H 25 H (19-24) mmol/L ABG O2 Saturation 100.0 H 99.9 H (94-97) % ABG Hematocrit 50 H 48 H (34.0-46.0) % ABG Potassium 4.9 H (3.4-4.5) mmol/L ABG Ionized Calcium (4.5-5.3) mg/dL ABG Glucose 117 H (75-99) mg/dL Sodium (137-145) mmol/L Chloride (98-107) mmol/L Carbon Dioxide (22-30) mmol/L Glucose (74-99) mg/dL POC Glucose (mg/dL) (75-99) mg/dL Calcium (8.4-10.2) mg/dL Total Protein (6.3-8.2) g/dL Albumin (3.5-5.0) g/dL Arterial Blood Potassium 4.9 H (3.4-4.5) mmol/L Arterial Blood Glucose 117 H (75-99) mg/dL Crossmatch See Detail 12/07/20 12/07/20 12/07/20 Range/Units 14:50 14:50 15:31 WBC (3.8-10.6) k/uL Neutrophils # (1.3-7.7) k/uL Lymphocytes # (1.0-4.8) k/uL ABG pH (7.35-7.45) ABG pO2 214 H 204 H 178 H (83-108) mmHg ABG HCO3 (21-25) mmol/L ABG Total CO2 (19-24) mmol/L ABG O2 Saturation 99.9 H 99.9 H 99.7 H (94-97) % ABG Hematocrit (34.0-46.0) % ABG Potassium (3.4-4.5) mmol/L ABG Ionized Calcium 4.4 L 4.4 L (4.5-5.3) mg/dL ABG Glucose 112 H 103 H 114 H (75-99) mg/dL Sodium (137-145) mmol/L Chloride (98-107) mmol/L Carbon Dioxide (22-30) mmol/L Glucose (74-99) mg/dL POC Glucose (mg/dL) (75-99) mg/dL Calcium (8.4-10.2) mg/dL Total Protein (6.3-8.2) g/dL Albumin (3.5-5.0) g/dL Arterial Blood Potassium (3.4-4.5) mmol/L Arterial Blood Glucose 112 H 103 H 114 H (75-99) mg/dL Crossmatch 12/07/20 12/07/20 12/07/20 Range/Units 16:45 16:45 16:45 WBC 15.7 H (3.8-10.6) k/uL Neutrophils # 13.4 H (1.3-7.7) k/uL Lymphocytes # (1.0-4.8) k/uL ABG pH (7.35-7.45) ABG pO2 (83-108) mmHg ABG HCO3 (21-25) mmol/L ABG Total CO2 (19-24) mmol/L ABG O2 Saturation (94-97) % ABG Hematocrit (34.0-46.0) % ABG Potassium (3.4-4.5) mmol/L ABG Ionized Calcium (4.5-5.3) mg/dL ABG Glucose (75-99) mg/dL Sodium (137-145) mmol/L Chloride 109 H (98-107) mmol/L Carbon Dioxide 21 L (22-30) mmol/L Glucose 115 H (74-99) mg/dL POC Glucose (mg/dL) 107 H (75-99) mg/dL Calcium 7.9 L (8.4-10.2) mg/dL Total Protein 5.3 L (6.3-8.2) g/dL Albumin 3.1 L (3.5-5.0) g/dL Arterial Blood Potassium (3.4-4.5) mmol/L Arterial Blood Glucose (75-99) mg/dL Crossmatch 12/07/20 12/07/20 12/07/20 Range/Units 17:01 17:10 18:01 WBC (3.8-10.6) k/uL Neutrophils # (1.3-7.7) k/uL Lymphocytes # (1.0-4.8) k/uL ABG pH 7.33 L (7.35-7.45) ABG pO2 82 L (83-108) mmHg ABG HCO3 (21-25) mmol/L ABG Total CO2 (19-24) mmol/L ABG O2 Saturation (94-97) % ABG Hematocrit (34.0-46.0) % ABG Potassium (3.4-4.5) mmol/L ABG Ionized Calcium (4.5-5.3) mg/dL ABG Glucose (75-99) mg/dL Sodium (137-145) mmol/L Chloride (98-107) mmol/L Carbon Dioxide (22-30) mmol/L Glucose (74-99) mg/dL POC Glucose (mg/dL) 100 H 111 H (75-99) mg/dL Calcium (8.4-10.2) mg/dL Total Protein (6.3-8.2) g/dL Albumin (3.5-5.0) g/dL Arterial Blood Potassium (3.4-4.5) mmol/L Arterial Blood Glucose (75-99) mg/dL Crossmatch 12/07/20 12/07/20 12/07/20 Range/Units 18:52 20:16 20:22 WBC 14.6 H (3.8-10.6) k/uL Neutrophils # 12.6 H (1.3-7.7) k/uL Lymphocytes # (1.0-4.8) k/uL ABG pH (7.35-7.45) ABG pO2 (83-108) mmHg ABG HCO3 (21-25) mmol/L ABG Total CO2 (19-24) mmol/L ABG O2 Saturation (94-97) % ABG Hematocrit (34.0-46.0) % ABG Potassium (3.4-4.5) mmol/L ABG Ionized Calcium (4.5-5.3) mg/dL ABG Glucose (75-99) mg/dL Sodium (137-145) mmol/L Chloride (98-107) mmol/L Carbon Dioxide (22-30) mmol/L Glucose (74-99) mg/dL POC Glucose (mg/dL) 102 H 118 H (75-99) mg/dL Calcium (8.4-10.2) mg/dL Total Protein (6.3-8.2) g/dL Albumin (3.5-5.0) g/dL Arterial Blood Potassium (3.4-4.5) mmol/L Arterial Blood Glucose (75-99) mg/dL Crossmatch 12/07/20 12/07/20 12/07/20 Range/Units 21:12 22:08 23:05 WBC (3.8-10.6) k/uL Neutrophils # (1.3-7.7) k/uL Lymphocytes # (1.0-4.8) k/uL ABG pH (7.35-7.45) ABG pO2 (83-108) mmHg ABG HCO3 (21-25) mmol/L ABG Total CO2 (19-24) mmol/L ABG O2 Saturation (94-97) % ABG Hematocrit (34.0-46.0) % ABG Potassium (3.4-4.5) mmol/L ABG Ionized Calcium (4.5-5.3) mg/dL ABG Glucose (75-99) mg/dL Sodium (137-145) mmol/L Chloride (98-107) mmol/L Carbon Dioxide (22-30) mmol/L Glucose (74-99) mg/dL POC Glucose (mg/dL) 107 H 104 H 100 H (75-99) mg/dL Calcium (8.4-10.2) mg/dL Total Protein (6.3-8.2) g/dL Albumin (3.5-5.0) g/dL Arterial Blood Potassium (3.4-4.5) mmol/L Arterial Blood Glucose (75-99) mg/dL Crossmatch 12/07/20 12/08/20 12/08/20 Range/Units 23:10 00:03 02:12 WBC 12.0 H (3.8-10.6) k/uL Neutrophils # 10.5 H (1.3-7.7) k/uL Lymphocytes # 0.6 L (1.0-4.8) k/uL ABG pH (7.35-7.45) ABG pO2 (83-108) mmHg ABG HCO3 (21-25) mmol/L ABG Total CO2 (19-24) mmol/L ABG O2 Saturation (94-97) % ABG Hematocrit (34.0-46.0) % ABG Potassium (3.4-4.5) mmol/L ABG Ionized Calcium (4.5-5.3) mg/dL ABG Glucose (75-99) mg/dL Sodium (137-145) mmol/L Chloride (98-107) mmol/L Carbon Dioxide (22-30) mmol/L Glucose (74-99) mg/dL POC Glucose (mg/dL) 104 H 107 H (75-99) mg/dL Calcium (8.4-10.2) mg/dL Total Protein (6.3-8.2) g/dL Albumin (3.5-5.0) g/dL Arterial Blood Potassium (3.4-4.5) mmol/L Arterial Blood Glucose (75-99) mg/dL Crossmatch 12/08/20 12/08/20 12/08/20 Range/Units 04:35 04:35 04:44 WBC 12.0 H (3.8-10.6) k/uL Neutrophils # 9.5 H (1.3-7.7) k/uL Lymphocytes # (1.0-4.8) k/uL ABG pH (7.35-7.45) ABG pO2 (83-108) mmHg ABG HCO3 (21-25) mmol/L ABG Total CO2 (19-24) mmol/L ABG O2 Saturation (94-97) % ABG Hematocrit (34.0-46.0) % ABG Potassium (3.4-4.5) mmol/L ABG Ionized Calcium (4.5-5.3) mg/dL ABG Glucose (75-99) mg/dL Sodium 136 L (137-145) mmol/L Chloride (98-107) mmol/L Carbon Dioxide (22-30) mmol/L Glucose 108 H (74-99) mg/dL POC Glucose (mg/dL) 115 H (75-99) mg/dL Calcium (8.4-10.2) mg/dL Total Protein 5.8 L (6.3-8.2) g/dL Albumin 3.4 L (3.5-5.0) g/dL Arterial Blood Potassium (3.4-4.5) mmol/L Arterial Blood Glucose (75-99) mg/dL Crossmatch 12/08/20 12/08/20 Range/Units 06:02 07:00 WBC (3.8-10.6) k/uL Neutrophils # (1.3-7.7) k/uL Lymphocytes # (1.0-4.8) k/uL ABG pH (7.35-7.45) ABG pO2 (83-108) mmHg ABG HCO3 (21-25) mmol/L ABG Total CO2 (19-24) mmol/L ABG O2 Saturation (94-97) % ABG Hematocrit (34.0-46.0) % ABG Potassium (3.4-4.5) mmol/L ABG Ionized Calcium (4.5-5.3) mg/dL ABG Glucose (75-99) mg/dL Sodium (137-145) mmol/L Chloride (98-107) mmol/L Carbon Dioxide (22-30) mmol/L Glucose (74-99) mg/dL POC Glucose (mg/dL) 120 H 100 H (75-99) mg/dL Calcium (8.4-10.2) mg/dL Total Protein (6.3-8.2) g/dL Albumin (3.5-5.0) g/dL Arterial Blood Potassium (3.4-4.5) mmol/L Arterial Blood Glucose (75-99) mg/dL Crossmatch Assessment and Plan Assessment: 1. Symptomatic multivessel coronary artery disease 2. Non-ST elevated myocardial infarction this admission 3. History of hypertension 4. History of hyperlipidemia 5. History of coronary artery disease with myocardial infarction around 20 years ago 6. Remote history of nicotine dependence with smoking around 2 years ago 7. Daily marijuana use with vaping 8. Restless leg syndrome Plan: 1. Continue to maximize medical therapy with aspirin, statin, Plavix and beta rj. Will increase metoprolol tartrate 25 mg by mouth twice a day 2. Discontinue IV nitroglycerin and Cardizem drips. Will add Norvasc 2.5 mg by mouth daily for radial artery spasm prophylaxis. Please do not discontinue Norvasc without discussing with cardiac surgery. 3. Wean O2 as tolerated. Encourage incentive spirometry use 10 times every hour while awake. Bronchodilators per pulmonology recommendations. 4. Increase activity, ambulate as tolerated. Out of bed for all meals. PT/OT/cardiac rehab consulted. 5. Will monitor daily labs and chest x-rays. Electrolyte replacement per protocol 6. GI/DVT prophylaxis. 7. Pain control with current medication regimen. 8. Insulin management per primary care service. Patient needs tight blood sugar control to promote healing and sternal union as well as prevent infection. Preoperative hemoglobin A1c 5.7%. 9. Discontinue [place]. Connect Cordis to continuous CVP monitoring. 10. Discontinue APRIL drain to his left arm. 11. Will continue chest tubes, and Cordis for another 24 hours. 12. Continue Rodriguez catheter for another 24 hours for strict accurate intake and output. Daily weights. 13. Remove right radial arterial line. 14. More recommendations to follow based on patient's clinical course. Time with Patient: Greater than 30
--- NOTE | 2020-12-08 12:11 | P.PN ---
Subjective Progress Note Date: 12/08/20 Principal diagnosis: Multivessel coronary artery disease status post CABG postoperative day #1 This is a 65-year-old white male patient with past medical history of a myocardial infarction 20 years ago without intervention, hypertension, hyperlipidemia, previous history of smoking, in remission for last 2 years, does carry [id number] smoking history, currently vapes marijuana. Patient came into the hospital on 12/03/2020 for evaluation of chest pain. Patient came in to this facility as a transfer from an outside facility, he was diagnosed with non-ST elevated myocardial infarction. He had elevated troponins with first, second and third set at 0.546, 2.540, and 4.140. His EKG showed sinus bradycardia, with evidence of a septal infarct and inferior wall infarct of undetermined age. Echocardiogram showed mild concentric LVH, preserved LV function with an EF of 55-60%, basal inferior and inferolateral septal LV wall motion was akinetic. There was no aortic stenosis or regurgitation, and there was mild MR, mild TR, and PA pressure was less than 35 mmHg. Patient had a cardiac catheterization on 12/04/2020 which revealed chronic total occlusion of the RCA, calcified left main with disease distally in the range of 40-50%, severe disease involving the ostial left circumflex, and ostial and proximal LAD. Patient was referred to cardiothoracic surgery for evaluation of coronary artery bypass grafting. In the meantime he is on antiplatelet therapy with asp irin as well as high intensity statin, and he is on heparin infusion per weight- based protocol. Chest x-ray showed normal chest x-ray.patient was seen by Dr. Driver from CT surgery and his surgery is tentatively scheduled for , 12/07/2020. His at bedside FEV1 was in the order of 51% of predicted. He is not oxygen dependent at baseline. He is breathing comfortably. Remains pulse ox is 97%. The patient is seen today 12/06/2020 in follow-up on the selective care unit. He is currently resting comfortably in bed. Awake and alert in no acute distress. Denies any chest pain, palpitations, lightheadedness or dizziness. No worsening shortness of breath, cough or congestion. He remains on a heparin drip. White count 6.6. Hemoglobin 16.9. Platelets 233. Sodium 140. Potassium 4.2. Creatinine 1.03. Asencio virus not detected. Plan is for CABG tomorrow. Reevaluated today on 12/08/2020, patient is now status post CABG, he had off-pump CABG 4 with sequential AUGUSTINE to intermediate and LAD, left radial to obtuse marginal, saphenous vein graft to PDA. Patient was on mechanical ventilation last night, he was extubated from mechanical ventilation few hours later. Patient was extubated at 8:17 PM, and he is now on 2 L nasal cannula with O2 sats of 95%. Achieving 1000 mile on his incentive spirometer. He is hemodynamically stable, not requiring any inotropes or pressors. He is in sinus rhythm. Cardiac output is 6.1 cardiac index is 2.6. CVP is 7. Chest x-ray is reassuring, he has mediastinal left pleural chest tubes remain in place, no air leak noted. Serosanguineous drainage noted with 420 mL output in the last 8 hours and 780 mL output since surgery. WBC count today is 12.0 hemoglobin is 14.2. Normal renal profile is normal. Chest x-ray minimal atelectasis is noted. Objective - Vital Signs Vital signs: Vital Signs Temp 100.0 F H 12/08/20 08:00 Pulse 68 12/08/20 10:00 Resp 21 12/08/20 10:00 BP 113/67 12/08/20 10:00 Pulse Ox 97 12/08/20 10:00 Intake & Output 12/07/20 12/08/20 12/08/20 18:59 06:59 18:59 Intake Total 645.187 6521.707 223.0 Output Total 2049 2009 240 Balance -1711.755 -791.293 -17.0 Weight 115.666 kg Intake: IV 303 908 223.0 .9 CO/CI 40 80 .9NS pressure bag 6 78 30 ACETAMINOPHEN IV (For NPO 100 ) 1,000 mg In Empty Bag 1 bag @ 400 mls/hr IVPB Q6HR [facility] Rx#:[id number] Lactated Ringers 1,000 ml 150 600 140 @ 20 mls/hr IV .Q24H [facility] Rx#:[id number] Nitroglycerin-D5w Pmx 50 3.0 mg In Dextrose/Water 1 250ml.bag @ 5 MCG/MIN 1.5 mls/hr IV .Q24H [facility] Rx#: [id number] ceFAZolin 2 gm In Sodium 50 50 Chloride 0.9% 50 ml @ 100 mls/hr IVPB ONCE ONE Rx# :[id number] Intake, IV Titration 35.245 70.707 Amount Dexmedetomidine/0.9% NaCl 29.426 (Pmx) 400 mcg In Empty Bag 1 bag @ Titrate IV . Q0M [facility] Rx#:[id number] Nitroglycerin-D5w Pmx 50 0.05 3.125 mg In Dextrose/Water 1 250ml.bag @ 5 MCG/MIN 1.5 mls/hr IV .Q24H [facility] Rx#: [id number] propofoL 1,000 mg In 35.195 38.156 Empty Bag 1 bag @ Titrate IV .Q0M [facility] Rx#: [id number] Oral 240 Output: Chest Tube Drainage 125 590 110 Chest Tube Mediastinal/ 125 590 110 Left Pleural Drainage 40 Left Wrist 40 Urine 925 1380 130 Estimated Blood Loss 1000 Other: Voiding Method Indwelling Catheter Indwelling Catheter Indwelling Catheter ABP, PAP, CO, CI - Last Documented Arterial Blood Pressure 110/87 Pulmonary Artery Pressure 25/11 Cardiac Output 6.1 Cardiac Index 2.6 - Exam CONSTITUTIONAL: Revealed a 65-year-old white male quite comfortable, in no distress. On 2 L nasal cannula. HEENT: PERRLA, EOMI, nonicteric, a right IJ Cordis and [place] catheter noted. RESPIRATORY: Symmetrical chest expansion, diminished breath sounds at the bases no crackles or rhonchi or wheezes. CARDIOVASCULAR: Distant S1 and S2, no S3 gallop, no murmur. GASTROINTESTINAL: Obese soft nontender no megaly no rebound no guarding. INTEGUMENTARY: No rashes, no cyanosis. NEUROLOGIC: Alert and oriented 3 no gross focal deficit. MUSKULOSKELETAL: No deformities and no limitation in range of motion. PSYCHIATRIC: Normal mood, affect and normal mental status examination. NEUROLGIC: Alert and oriented 3 never focal deficits. - Labs CBC & Chem 7: 12/08/20 04:35 12/08/20 04:35 Labs: Abnormal Lab Results - Last 24 Hours (Table) 12/06/20 12/07/20 12/07/20 Range/Units 06:47 12:07 13:44 WBC (3.8-10.6) k/uL Neutrophils # (1.3-7.7) k/uL Lymphocytes # (1.0-4.8) k/uL ABG pH 7.34 L (7.35-7.45) ABG pO2 382 H 168 H (83-108) mmHg ABG HCO3 26 H (21-25) mmol/L ABG Total CO2 28 H 25 H (19-24) mmol/L ABG O2 Saturation 100.0 H 99.9 H (94-97) % ABG Hematocrit 50 H 48 H (34.0-46.0) % ABG Potassium 4.9 H (3.4-4.5) mmol/L ABG Ionized Calcium (4.5-5.3) mg/dL ABG Glucose 117 H (75-99) mg/dL Sodium (137-145) mmol/L Chloride (98-107) mmol/L Carbon Dioxide (22-30) mmol/L Glucose (74-99) mg/dL POC Glucose (mg/dL) (75-99) mg/dL Calcium (8.4-10.2) mg/dL Total Protein (6.3-8.2) g/dL Albumin (3.5-5.0) g/dL Arterial Blood Potassium 4.9 H (3.4-4.5) mmol/L Arterial Blood Glucose 117 H (75-99) mg/dL Crossmatch See Detail 12/07/20 12/07/20 12/07/20 Range/Units 14:50 14:50 15:31 WBC (3.8-10.6) k/uL Neutrophils # (1.3-7.7) k/uL Lymphocytes # (1.0-4.8) k/uL ABG pH (7.35-7.45) ABG pO2 214 H 204 H 178 H (83-108) mmHg ABG HCO3 (21-25) mmol/L ABG Total CO2 (19-24) mmol/L ABG O2 Saturation 99.9 H 99.9 H 99.7 H (94-97) % ABG Hematocrit (34.0-46.0) % ABG Potassium (3.4-4.5) mmol/L ABG Ionized Calcium 4.4 L 4.4 L (4.5-5.3) mg/dL ABG Glucose 112 H 103 H 114 H (75-99) mg/dL Sodium (137-145) mmol/L Chloride (98-107) mmol/L Carbon Dioxide (22-30) mmol/L Glucose (74-99) mg/dL POC Glucose (mg/dL) (75-99) mg/dL Calcium (8.4-10.2) mg/dL Total Protein (6.3-8.2) g/dL Albumin (3.5-5.0) g/dL Arterial Blood Potassium (3.4-4.5) mmol/L Arterial Blood Glucose 112 H 103 H 114 H (75-99) mg/dL Crossmatch 12/07/20 12/07/20 12/07/20 Range/Units 16:45 16:45 16:45 WBC 15.7 H (3.8-10.6) k/uL Neutrophils # 13.4 H (1.3-7.7) k/uL Lymphocytes # (1.0-4.8) k/uL ABG pH (7.35-7.45) ABG pO2 (83-108) mmHg ABG HCO3 (21-25) mmol/L ABG Total CO2 (19-24) mmol/L ABG O2 Saturation (94-97) % ABG Hematocrit (34.0-46.0) % ABG Potassium (3.4-4.5) mmol/L ABG Ionized Calcium (4.5-5.3) mg/dL ABG Glucose (75-99) mg/dL Sodium (137-145) mmol/L Chloride 109 H (98-107) mmol/L Carbon Dioxide 21 L (22-30) mmol/L Glucose 115 H (74-99) mg/dL POC Glucose (mg/dL) 107 H (75-99) mg/dL Calcium 7.9 L (8.4-10.2) mg/dL Total Protein 5.3 L (6.3-8.2) g/dL Albumin 3.1 L (3.5-5.0) g/dL Arterial Blood Potassium (3.4-4.5) mmol/L Arterial Blood Glucose (75-99) mg/dL Crossmatch 12/07/20 12/07/20 12/07/20 Range/Units 17:01 17:10 18:01 WBC (3.8-10.6) k/uL Neutrophils # (1.3-7.7) k/uL Lymphocytes # (1.0-4.8) k/uL ABG pH 7.33 L (7.35-7.45) ABG pO2 82 L (83-108) mmHg ABG HCO3 (21-25) mmol/L ABG Total CO2 (19-24) mmol/L ABG O2 Saturation (94-97) % ABG Hematocrit (34.0-46.0) % ABG Potassium (3.4-4.5) mmol/L ABG Ionized Calcium (4.5-5.3) mg/dL ABG Glucose (75-99) mg/dL Sodium (137-145) mmol/L Chloride (98-107) mmol/L Carbon Dioxide (22-30) mmol/L Glucose (74-99) mg/dL POC Glucose (mg/dL) 100 H 111 H (75-99) mg/dL Calcium (8.4-10.2) mg/dL Total Protein (6.3-8.2) g/dL Albumin (3.5-5.0) g/dL Arterial Blood Potassium (3.4-4.5) mmol/L Arterial Blood Glucose (75-99) mg/dL Crossmatch 12/07/20 12/07/20 12/07/20 Range/Units 18:52 20:16 20:22 WBC 14.6 H (3.8-10.6) k/uL Neutrophils # 12.6 H (1.3-7.7) k/uL Lymphocytes # (1.0-4.8) k/uL ABG pH (7.35-7.45) ABG pO2 (83-108) mmHg ABG HCO3 (21-25) mmol/L ABG Total CO2 (19-24) mmol/L ABG O2 Saturation (94-97) % ABG Hematocrit (34.0-46.0) % ABG Potassium (3.4-4.5) mmol/L ABG Ionized Calcium (4.5-5.3) mg/dL ABG Glucose (75-99) mg/dL Sodium (137-145) mmol/L Chloride (98-107) mmol/L Carbon Dioxide (22-30) mmol/L Glucose (74-99) mg/dL POC Glucose (mg/dL) 102 H 118 H (75-99) mg/dL Calcium (8.4-10.2) mg/dL Total Protein (6.3-8.2) g/dL Albumin (3.5-5.0) g/dL Arterial Blood Potassium (3.4-4.5) mmol/L Arterial Blood Glucose (75-99) mg/dL Crossmatch 12/07/20 12/07/20 12/07/20 Range/Units 21:12 22:08 23:05 WBC (3.8-10.6) k/uL Neutrophils # (1.3-7.7) k/uL Lymphocytes # (1.0-4.8) k/uL ABG pH (7.35-7.45) ABG pO2 (83-108) mmHg ABG HCO3 (21-25) mmol/L ABG Total CO2 (19-24) mmol/L ABG O2 Saturation (94-97) % ABG Hematocrit (34.0-46.0) % ABG Potassium (3.4-4.5) mmol/L ABG Ionized Calcium (4.5-5.3) mg/dL ABG Glucose (75-99) mg/dL Sodium (137-145) mmol/L Chloride (98-107) mmol/L Carbon Dioxide (22-30) mmol/L Glucose (74-99) mg/dL POC Glucose (mg/dL) 107 H 104 H 100 H (75-99) mg/dL Calcium (8.4-10.2) mg/dL Total Protein (6.3-8.2) g/dL Albumin (3.5-5.0) g/dL Arterial Blood Potassium (3.4-4.5) mmol/L Arterial Blood Glucose (75-99) mg/dL Crossmatch 12/07/20 12/08/20 12/08/20 Range/Units 23:10 00:03 02:12 WBC 12.0 H (3.8-10.6) k/uL Neutrophils # 10.5 H (1.3-7.7) k/uL Lymphocytes # 0.6 L (1.0-4.8) k/uL ABG pH (7.35-7.45) ABG pO2 (83-108) mmHg ABG HCO3 (21-25) mmol/L ABG Total CO2 (19-24) mmol/L ABG O2 Saturation (94-97) % ABG Hematocrit (34.0-46.0) % ABG Potassium (3.4-4.5) mmol/L ABG Ionized Calcium (4.5-5.3) mg/dL ABG Glucose (75-99) mg/dL Sodium (137-145) mmol/L Chloride (98-107) mmol/L Carbon Dioxide (22-30) mmol/L Glucose (74-99) mg/dL POC Glucose (mg/dL) 104 H 107 H (75-99) mg/dL Calcium (8.4-10.2) mg/dL Total Protein (6.3-8.2) g/dL Albumin (3.5-5.0) g/dL Arterial Blood Potassium (3.4-4.5) mmol/L Arterial Blood Glucose (75-99) mg/dL Crossmatch 12/08/20 12/08/20 12/08/20 Range/Units 04:35 04:35 04:44 WBC 12.0 H (3.8-10.6) k/uL Neutrophils # 9.5 H (1.3-7.7) k/uL Lymphocytes # (1.0-4.8) k/uL ABG pH (7.35-7.45) ABG pO2 (83-108) mmHg ABG HCO3 (21-25) mmol/L ABG Total CO2 (19-24) mmol/L ABG O2 Saturation (94-97) % ABG Hematocrit (34.0-46.0) % ABG Potassium (3.4-4.5) mmol/L ABG Ionized Calcium (4.5-5.3) mg/dL ABG Glucose (75-99) mg/dL Sodium 136 L (137-145) mmol/L Chloride (98-107) mmol/L Carbon Dioxide (22-30) mmol/L Glucose 108 H (74-99) mg/dL POC Glucose (mg/dL) 115 H (75-99) mg/dL Calcium (8.4-10.2) mg/dL Total Protein 5.8 L (6.3-8.2) g/dL Albumin 3.4 L (3.5-5.0) g/dL Arterial Blood Potassium (3.4-4.5) mmol/L Arterial Blood Glucose (75-99) mg/dL Crossmatch 12/08/20 12/08/20 12/08/20 Range/Units 06:02 07:00 09:55 WBC (3.8-10.6) k/uL Neutrophils # (1.3-7.7) k/uL Lymphocytes # (1.0-4.8) k/uL ABG pH (7.35-7.45) ABG pO2 (83-108) mmHg ABG HCO3 (21-25) mmol/L ABG Total CO2 (19-24) mmol/L ABG O2 Saturation (94-97) % ABG Hematocrit (34.0-46.0) % ABG Potassium (3.4-4.5) mmol/L ABG Ionized Calcium (4.5-5.3) mg/dL ABG Glucose (75-99) mg/dL Sodium (137-145) mmol/L Chloride (98-107) mmol/L Carbon Dioxide (22-30) mmol/L Glucose (74-99) mg/dL POC Glucose (mg/dL) 120 H 100 H 123 H (75-99) mg/dL Calcium (8.4-10.2) mg/dL Total Protein (6.3-8.2) g/dL Albumin (3.5-5.0) g/dL Arterial Blood Potassium (3.4-4.5) mmol/L Arterial Blood Glucose (75-99) mg/dL Crossmatch Assessment and Plan Assessment: Impression: Status post CABG, postoperative day #1. Symptomatic multivessel coronary artery disease. Non-ST elevation myocardial infarction. Benign essential hypertension. Remote nicotine dependence, ex-smoker. History of marijuana and vaping Postoperative atelectasis, expected. Recommendation: Continue present cardiac meds including beta blockers Plavix statin and aspirin. Wean oxygen and titrate accordingly. Continue bronchodilators. Continue incentive spirometer. Continue GI prophylaxis. Continue pain control management. Discontinued unnecessary lines and catheters. Early ambulation. Monitor daily labs and x-rays of the chest. We'll continue to follow. Time with Patient: Less than 30
[2020-12-08 12:18] LABS: Glucose,Whole Blood 99 mg/dL (75-99)
[2020-12-08] MEDS ORDERED: FUROSEMIDE 10 MG/ML 2 ML VIAL IV ONE (13:22)
[2020-12-08 14:06] VITALS: BMI 34.5
--- NOTE | 2020-12-08 14:17 | P.PN ---
Subjective This is a 65-year-old male with a past medical history significant for previous myocardial infarction without stenting and hypertension. Patient does not follow with a green feed attendant (states it has been over 10 years since he saw a green feed attendant). We have been asked to see the patient in consultation for chest pain. Patient initially presented to [facility] secondary to chest pain. 12/04/2020 Patient underwent cardiac catheterization yesterday with Dr. Akers revealing calcified right and left coronary system. Chronic total occlusion of the RCA. RCA fills by bridging collaterals from the left coronary system. Calcified left main with disease distally that appeared to be in the range of 40-50%. Severe disease involving the ostial left circumflex. Severe disease involving the ostial and proximal left anterior descending artery. Cardiothoracic surgery was consulted and have evaluated the patient and plan for CABG 12/07/2020. Echocardiogram completed revealed ejection fraction 55-60%, basal inferior and basal inferior septal LV wall akinesis. 12/08/2020 Patient is POD #1 CABG 4 with sequential AUGUSTINE to intermediate and LAD, left radial artery graft to obtuse marginal, saphenous vein graft to PDA. Occlusion of left atrial appendage. Patient examined this morning at the bedside in the bedside chair. He is awake, alert and oriented 3 and is in no acute apparent distress. He denies any chest pain shortness of breath this time. He was extubated overnight. He states currently on 2 L nasal cannula. He remains he modynamically stable and is currently on no inotropic or pressure support. He is in sinus mechanism. PHYSICAL EXAM: VITAL SIGNS: Reviewed. GENERAL: Well-developed in no acute distress. HEENT: Neck supple. No JVD. Right IJ Cordis and Frannie-Garth catheter in place LUNGS: Respirations even and unlabored. Lungs essentially clear to auscultation bilaterally. HEART: Regular rate and rhythm. S1 and S2 heard. ABDOMEN: Soft. Nondistended. Nontender. EXTREMITIES: Normal range of motion. No clubbing or cyanosis. Peripheral pulses intact. 1+ bilateral edema lower extremity. Right radial cath site with pulse present. Mediastinal and left pleural chest tubes serosanguineous drainage. right radial arterial line present. NEUROLOGIC: Awake and alert. Oriented x 3. ASSESSMENT: Non-STEMI, status post cardiac catheterization revealing multivessel CAD s/p CABG x 4 on 12/07/2020 History of coronary artery disease Hypertension History of hyperlipidemia PLAN: Continue current cardiac medications aspirin, statin, Plavix and beta rj and amlodipine Encourage incentive spirometry use 10 times every hour while awake. Increase activity, ambulate as tolerated. CTS following and managing patient Further recommendations pending patient's course Nurse practitioner note has been reviewed by physician. Signing provider agrees with the documented findings, assessment, and plan of care. Objective - Vital Signs Vital signs: Vital Signs Temp 99.8 F H 12/08/20 12:00 Pulse 82 12/08/20 13:00 Resp 29 H 12/08/20 13:00 BP 139/89 12/08/20 13:00 Pulse Ox 93 L 12/08/20 13:00 Intake & Output 12/07/20 12/08/20 12/08/20 18:59 06:59 18:59 Intake Total 305.866 1950.707 301.0 Output Total 2049 2009 535 Balance -1711.755 -791.293 -234.0 Weight 115.666 kg 115.666 kg Intake: IV 303 908 301.0 .9 CO/CI 40 80 .9NS pressure bag 6 78 48 ACETAMINOPHEN IV (For NPO 100 ) 1,000 mg In Empty Bag 1 bag @ 400 mls/hr IVPB Q6HR [facility] Rx#:[id number] Lactated Ringers 1,000 ml 150 600 200 @ 20 mls/hr IV .Q24H [facility] Rx#:[id number] Nitroglycerin-D5w Pmx 50 3.0 mg In Dextrose/Water 1 250ml.bag @ 5 MCG/MIN 1.5 mls/hr IV .Q24H [facility] Rx#: [id number] ceFAZolin 2 gm In Sodium 50 50 Chloride 0.9% 50 ml @ 100 mls/hr IVPB ONCE ONE Rx# :[id number] Intake, IV Titration 35.245 70.707 Amount Dexmedetomidine/0.9% NaCl 29.426 (Pmx) 400 mcg In Empty Bag 1 bag @ Titrate IV . Q0M [facility] Rx#:[id number] Nitroglycerin-D5w Pmx 50 0.05 3.125 mg In Dextrose/Water 1 250ml.bag @ 5 MCG/MIN 1.5 mls/hr IV .Q24H [facility] Rx#: [id number] propofoL 1,000 mg In 35.195 38.156 Empty Bag 1 bag @ Titrate IV .Q0M [facility] Rx#: [id number] Oral 240 Output: Chest Tube Drainage 125 590 250 Chest Tube Mediastinal/ 125 590 250 Left Pleural Drainage 40 Left Wrist 40 Urine 925 1380 285 Estimated Blood Loss 1000 Other: Voiding Method Indwelling Catheter Indwelling Catheter Indwelling Catheter ABP, PAP, CO, CI - Last Documented Arterial Blood Pressure 128/105 Pulmonary Artery Pressure 25/11 Cardiac Output 6.1 Cardiac Index 2.6 - Labs CBC & Chem 7: 12/08/20 04:35 12/08/20 04:35 Labs: Abnormal Lab Results - Last 24 Hours (Table) 12/06/20 12/07/20 12/07/20 Range/Units 06:47 12:07 13:44 WBC (3.8-10.6) k/uL Neutrophils # (1.3-7.7) k/uL Lymphocytes # (1.0-4.8) k/uL ABG pH 7.34 L (7.35-7.45) ABG pO2 382 H 168 H (83-108) mmHg ABG HCO3 26 H (21-25) mmol/L ABG Total CO2 28 H 25 H (19-24) mmol/L ABG O2 Saturation 100.0 H 99.9 H (94-97) % ABG Hematocrit 50 H 48 H (34.0-46.0) % ABG Potassium 4.9 H (3.4-4.5) mmol/L ABG Ionized Calcium (4.5-5.3) mg/dL ABG Glucose 117 H (75-99) mg/dL Sodium (137-145) mmol/L Chloride (98-107) mmol/L Carbon Dioxide (22-30) mmol/L Glucose (74-99) mg/dL POC Glucose (mg/dL) (75-99) mg/dL Calcium (8.4-10.2) mg/dL Total Protein (6.3-8.2) g/dL Albumin (3.5-5.0) g/dL Arterial Blood Potassium 4.9 H (3.4-4.5) mmol/L Arterial Blood Glucose 117 H (75-99) mg/dL Crossmatch See Detail 12/07/20 12/07/20 12/07/20 Range/Units 14:50 14:50 15:31 WBC (3.8-10.6) k/uL Neutrophils # (1.3-7.7) k/uL Lymphocytes # (1.0-4.8) k/uL ABG pH (7.35-7.45) ABG pO2 214 H 204 H 178 H (83-108) mmHg ABG HCO3 (21-25) mmol/L ABG Total CO2 (19-24) mmol/L ABG O2 Saturation 99.9 H 99.9 H 99.7 H (94-97) % ABG Hematocrit (34.0-46.0) % ABG Potassium (3.4-4.5) mmol/L ABG Ionized Calcium 4.4 L 4.4 L (4.5-5.3) mg/dL ABG Glucose 112 H 103 H 114 H (75-99) mg/dL Sodium (137-145) mmol/L Chloride (98-107) mmol/L Carbon Dioxide (22-30) mmol/L Glucose (74-99) mg/dL POC Glucose (mg/dL) (75-99) mg/dL Calcium (8.4-10.2) mg/dL Total Protein (6.3-8.2) g/dL Albumin (3.5-5.0) g/dL Arterial Blood Potassium (3.4-4.5) mmol/L Arterial Blood Glucose 112 H 103 H 114 H (75-99) mg/dL Crossmatch 12/07/20 12/07/20 12/07/20 Range/Units 16:45 16:45 16:45 WBC 15.7 H (3.8-10.6) k/uL Neutrophils # 13.4 H (1.3-7.7) k/uL Lymphocytes # (1.0-4.8) k/uL ABG pH (7.35-7.45) ABG pO2 (83-108) mmHg ABG HCO3 (21-25) mmol/L ABG Total CO2 (19-24) mmol/L ABG O2 Saturation (94-97) % ABG Hematocrit (34.0-46.0) % ABG Potassium (3.4-4.5) mmol/L ABG Ionized Calcium (4.5-5.3) mg/dL ABG Glucose (75-99) mg/dL Sodium (137-145) mmol/L Chloride 109 H (98-107) mmol/L Carbon Dioxide 21 L (22-30) mmol/L Glucose 115 H (74-99) mg/dL POC Glucose (mg/dL) 107 H (75-99) mg/dL Calcium 7.9 L (8.4-10.2) mg/dL Total Protein 5.3 L (6.3-8.2) g/dL Albumin 3.1 L (3.5-5.0) g/dL Arterial Blood Potassium (3.4-4.5) mmol/L Arterial Blood Glucose (75-99) mg/dL Crossmatch 12/07/20 12/07/20 12/07/20 Range/Units 17:01 17:10 18:01 WBC (3.8-10.6) k/uL Neutrophils # (1.3-7.7) k/uL Lymphocytes # (1.0-4.8) k/uL ABG pH 7.33 L (7.35-7.45) ABG pO2 82 L (83-108) mmHg ABG HCO3 (21-25) mmol/L ABG Total CO2 (19-24) mmol/L ABG O2 Saturation (94-97) % ABG Hematocrit (34.0-46.0) % ABG Potassium (3.4-4.5) mmol/L ABG Ionized Calcium (4.5-5.3) mg/dL ABG Glucose (75-99) mg/dL Sodium (137-145) mmol/L Chloride (98-107) mmol/L Carbon Dioxide (22-30) mmol/L Glucose (74-99) mg/dL POC Glucose (mg/dL) 100 H 111 H (75-99) mg/dL Calcium (8.4-10.2) mg/dL Total Protein (6.3-8.2) g/dL Albumin (3.5-5.0) g/dL Arterial Blood Potassium (3.4-4.5) mmol/L Arterial Blood Glucose (75-99) mg/dL Crossmatch 12/07/20 12/07/20 12/07/20 Range/Units 18:52 20:16 20:22 WBC 14.6 H (3.8-10.6) k/uL Neutrophils # 12.6 H (1.3-7.7) k/uL Lymphocytes # (1.0-4.8) k/uL ABG pH (7.35-7.45) ABG pO2 (83-108) mmHg ABG HCO3 (21-25) mmol/L ABG Total CO2 (19-24) mmol/L ABG O2 Saturation (94-97) % ABG Hematocrit (34.0-46.0) % ABG Potassium (3.4-4.5) mmol/L ABG Ionized Calcium (4.5-5.3) mg/dL ABG Glucose (75-99) mg/dL Sodium (137-145) mmol/L Chloride (98-107) mmol/L Carbon Dioxide (22-30) mmol/L Glucose (74-99) mg/dL POC Glucose (mg/dL) 102 H 118 H (75-99) mg/dL Calcium (8.4-10.2) mg/dL Total Protein (6.3-8.2) g/dL Albumin (3.5-5.0) g/dL Arterial Blood Potassium (3.4-4.5) mmol/L Arterial Blood Glucose (75-99) mg/dL Crossmatch 12/07/20 12/07/20 12/07/20 Range/Units 21:12 22:08 23:05 WBC (3.8-10.6) k/uL Neutrophils # (1.3-7.7) k/uL Lymphocytes # (1.0-4.8) k/uL ABG pH (7.35-7.45) ABG pO2 (83-108) mmHg ABG HCO3 (21-25) mmol/L ABG Total CO2 (19-24) mmol/L ABG O2 Saturation (94-97) % ABG Hematocrit (34.0-46.0) % ABG Potassium (3.4-4.5) mmol/L ABG Ionized Calcium (4.5-5.3) mg/dL ABG Glucose (75-99) mg/dL Sodium (137-145) mmol/L Chloride (98-107) mmol/L Carbon Dioxide (22-30) mmol/L Glucose (74-99) mg/dL POC Glucose (mg/dL) 107 H 104 H 100 H (75-99) mg/dL Calcium (8.4-10.2) mg/dL Total Protein (6.3-8.2) g/dL Albumin (3.5-5.0) g/dL Arterial Blood Potassium (3.4-4.5) mmol/L Arterial Blood Glucose (75-99) mg/dL Crossmatch 12/07/20 12/08/20 12/08/20 Range/Units 23:10 00:03 02:12 WBC 12.0 H (3.8-10.6) k/uL Neutrophils # 10.5 H (1.3-7.7) k/uL Lymphocytes # 0.6 L (1.0-4.8) k/uL ABG pH (7.35-7.45) ABG pO2 (83-108) mmHg ABG HCO3 (21-25) mmol/L ABG Total CO2 (19-24) mmol/L ABG O2 Saturation (94-97) % ABG Hematocrit (34.0-46.0) % ABG Potassium (3.4-4.5) mmol/L ABG Ionized Calcium (4.5-5.3) mg/dL ABG Glucose (75-99) mg/dL Sodium (137-145) mmol/L Chloride (98-107) mmol/L Carbon Dioxide (22-30) mmol/L Glucose (74-99) mg/dL POC Glucose (mg/dL) 104 H 107 H (75-99) mg/dL Calcium (8.4-10.2) mg/dL Total Protein (6.3-8.2) g/dL Albumin (3.5-5.0) g/dL Arterial Blood Potassium (3.4-4.5) mmol/L Arterial Blood Glucose (75-99) mg/dL Crossmatch 12/08/20 12/08/20 12/08/20 Range/Units 04:35 04:35 04:44 WBC 12.0 H (3.8-10.6) k/uL Neutrophils # 9.5 H (1.3-7.7) k/uL Lymphocytes # (1.0-4.8) k/uL ABG pH (7.35-7.45) ABG pO2 (83-108) mmHg ABG HCO3 (21-25) mmol/L ABG Total CO2 (19-24) mmol/L ABG O2 Saturation (94-97) % ABG Hematocrit (34.0-46.0) % ABG Potassium (3.4-4.5) mmol/L ABG Ionized Calcium (4.5-5.3) mg/dL ABG Glucose (75-99) mg/dL Sodium 136 L (137-145) mmol/L Chloride (98-107) mmol/L Carbon Dioxide (22-30) mmol/L Glucose 108 H (74-99) mg/dL POC Glucose (mg/dL) 115 H (75-99) mg/dL Calcium (8.4-10.2) mg/dL Total Protein 5.8 L (6.3-8.2) g/dL Albumin 3.4 L (3.5-5.0) g/dL Arterial Blood Potassium (3.4-4.5) mmol/L Arterial Blood Glucose (75-99) mg/dL Crossmatch 12/08/20 12/08/20 12/08/20 Range/Units 06:02 07:00 09:55 WBC (3.8-10.6) k/uL Neutrophils # (1.3-7.7) k/uL Lymphocytes # (1.0-4.8) k/uL ABG pH (7.35-7.45) ABG pO2 (83-108) mmHg ABG HCO3 (21-25) mmol/L ABG Total CO2 (19-24) mmol/L ABG O2 Saturation (94-97) % ABG Hematocrit (34.0-46.0) % ABG Potassium (3.4-4.5) mmol/L ABG Ionized Calcium (4.5-5.3) mg/dL ABG Glucose (75-99) mg/dL Sodium (137-145) mmol/L Chloride (98-107) mmol/L Carbon Dioxide (22-30) mmol/L Glucose (74-99) mg/dL POC Glucose (mg/dL) 120 H 100 H 123 H (75-99) mg/dL Calcium (8.4-10.2) mg/dL Total Protein (6.3-8.2) g/dL Albumin (3.5-5.0) g/dL Arterial Blood Potassium (3.4-4.5) mmol/L Arterial Blood Glucose (75-99) mg/dL Crossmatch
[2020-12-08 15:25] LABS: Glucose,Whole Blood 99 mg/dL (75-99)
[2020-12-08] MEDS: NITROGLYCERIN-D5W PMX 50 MG in DEXTROSE/WATER 1 250ML.BAG IV SCH (16:19)
[2020-12-08 17:48] LABS: Glucose,Whole Blood 137 mg/dL (75-99)
--- NOTE | 2020-12-08 21:18 | P.PN ---
Subjective Progress Note Date: 12/08/20 (patient seen at 1515) Principal diagnosis: chest pain Patient is a 65 yo male with a history of coronary artery disease, HTN, and restless leg syndrome who was admitted for chest pain. He was found to have a NSTEMI. He was seen by cardiology, echo showed EF 55-60% with LV wall that is akinetic. A cardiac cath was completed on 12/04/20 which showed tripple vessel disease in the RCA, left circumflex, and LAD. He was seen by cardiothorasic surgery and preoperative teaching was started. Carotid doppler showed no hemodynamically significant stenosis, he underwent saphanous vein mapping as well. Pulmonary was consulted, he underwent PFT which was within normal limits and he was determined optimized for surgery. He underwent off pump 3 vessel CABG on 11/07/[address] Driver Patient seen and examined at bedside. He is having some pain near his chest tube site and his Rodriguez catheter site. He denies any shortness of breath. Walk Today. Last Bowel Movement Was Yesterday. General: non toxic, no distress, appears at stated age Derm: warm, dry Head: atraumatic, normocephalic, symmetric Eyes: EOMI, no lid lag, anicteric sclera Mouth: no lip lesion, mucus membranes moist Cardiovascular: S1S2 reg, no murmur, positive posterior tibial pulse bilateral, Lungs: Decreased breath sounds bilaterally, no rhonchi, no rales , no accessory muscle use, chest tube in place Abdominal: soft, nontender to palpation, no guarding, no appreciable organomegaly Ext: no gross muscle atrophy, no edema, no contractures Neuro: CN II-XI grossly intact, no focal neuro deficits Psych: Alert, oriented, appropriate affect NSTEMI, Multivessel CAD, S/P CABG X 3 - management per CT surgery - Cardio recs - ASA, Plavix, Lipitor, BB HTN, controlled - follow BP Dyslipiedmia - statin Leukoctyosis - Likely reactive - follow CBC Restelss leg syndrome - mirapex Hypokalemia, resolved Chronic: Prior tobacco abuse Marijuana use DVT prophylaxis: Heparin Objective - Vital Signs Vital signs: Vital Signs Temp 100.0 F H 12/08/20 04:00 Pulse 88 12/08/20 07:41 Resp 33 H 12/08/20 07:00 BP 132/80 12/08/20 07:00 Pulse Ox 95 12/08/20 06:15 Intake & Output 12/07/20 12/08/20 12/08/20 18:59 06:59 18:59 Intake Total 497.421 8146.707 59 Output Total 2049 2009 50 Balance -1711.755 -791.293 9 Weight 115.666 kg Intake: IV 303 908 59 .9 CO/CI 40 80 .9NS pressure bag 6 78 9 ACETAMINOPHEN IV (For NPO 100 ) 1,000 mg In Empty Bag 1 bag @ 400 mls/hr IVPB Q6HR [facility] Rx#:[id number] Lactated Ringers 1,000 ml 150 600 50 @ 50 mls/hr IV .Q20H [facility] Rx#:[id number] ceFAZolin 2 gm In Sodium 50 Chloride 0.9% 50 ml @ 100 mls/hr IVPB ONCE ONE Rx# :[id number] Intake, IV Titration 35.245 70.707 Amount Dexmedetomidine/0.9% NaCl 29.426 (Pmx) 400 mcg In Empty Bag 1 bag @ Titrate IV . Q0M [facility] Rx#:[id number] Nitroglycerin-D5w Pmx 50 0.05 3.125 mg In Dextrose/Water 1 250ml.bag @ 5 MCG/MIN 1.5 mls/hr IV .Q24H [facility] Rx#: [id number] propofoL 1,000 mg In 35.195 38.156 Empty Bag 1 bag @ Titrate IV .Q0M [facility] Rx#: [id number] Oral 240 Output: Chest Tube Drainage 125 590 20 Chest Tube Mediastinal/ 125 590 20 Left Pleural Drainage 40 Left Wrist 40 Urine 925 1380 30 Estimated Blood Loss 1000 Other: Voiding Method Indwelling Catheter Indwelling Catheter ABP, PAP, CO, CI - Last Documented Arterial Blood Pressure 103/86 Pulmonary Artery Pressure 19/3 Cardiac Output 6.1 Cardiac Index 2.6 - Labs CBC & Chem 7: 12/08/20 04:35 12/08/20 04:35 Labs: Abnormal Lab Results - Last 24 Hours (Table) 12/06/20 12/07/20 12/07/20 Range/Units 06:47 07:00 07:00 WBC (3.8-10.6) k/uL Neutrophils # (1.3-7.7) k/uL Lymphocytes # (1.0-4.8) k/uL APTT 63.3 H (22.0-30.0) sec ABG pH (7.35-7.45) ABG pO2 (83-108) mmHg ABG HCO3 (21-25) mmol/L ABG Total CO2 (19-24) mmol/L ABG O2 Saturation (94-97) % ABG Hematocrit (34.0-46.0) % ABG Potassium (3.4-4.5) mmol/L ABG Ionized Calcium (4.5-5.3) mg/dL ABG Glucose (75-99) mg/dL Sodium (137-145) mmol/L Chloride (98-107) mmol/L Carbon Dioxide (22-30) mmol/L Glucose 106 H (74-99) mg/dL POC Glucose (mg/dL) (75-99) mg/dL Calcium (8.4-10.2) mg/dL Total Protein (6.3-8.2) g/dL Albumin (3.5-5.0) g/dL Arterial Blood Potassium (3.4-4.5) mmol/L Arterial Blood Glucose (75-99) mg/dL Crossmatch See Detail 12/07/20 12/07/20 12/07/20 Range/Units 12:07 13:44 14:50 WBC (3.8-10.6) k/uL Neutrophils # (1.3-7.7) k/uL Lymphocytes # (1.0-4.8) k/uL APTT (22.0-30.0) sec ABG pH 7.34 L (7.35-7.45) ABG pO2 382 H 168 H 214 H (83-108) mmHg ABG HCO3 26 H (21-25) mmol/L ABG Total CO2 28 H 25 H (19-24) mmol/L ABG O2 Saturation 100.0 H 99.9 H 99.9 H (94-97) % ABG Hematocrit 50 H 48 H (34.0-46.0) % ABG Potassium 4.9 H (3.4-4.5) mmol/L ABG Ionized Calcium 4.4 L (4.5-5.3) mg/dL ABG Glucose 117 H 112 H (75-99) mg/dL Sodium (137-145) mmol/L Chloride (98-107) mmol/L Carbon Dioxide (22-30) mmol/L Glucose (74-99) mg/dL POC Glucose (mg/dL) (75-99) mg/dL Calcium (8.4-10.2) mg/dL Total Protein (6.3-8.2) g/dL Albumin (3.5-5.0) g/dL Arterial Blood Potassium 4.9 H (3.4-4.5) mmol/L Arterial Blood Glucose 117 H 112 H (75-99) mg/dL Crossmatch 12/07/20 12/07/20 12/07/20 Range/Units 14:50 15:31 16:45 WBC 15.7 H (3.8-10.6) k/uL Neutrophils # 13.4 H (1.3-7.7) k/uL Lymphocytes # (1.0-4.8) k/uL APTT (22.0-30.0) sec ABG pH (7.35-7.45) ABG pO2 204 H 178 H (83-108) mmHg ABG HCO3 (21-25) mmol/L ABG Total CO2 (19-24) mmol/L ABG O2 Saturation 99.9 H 99.7 H (94-97) % ABG Hematocrit (34.0-46.0) % ABG Potassium (3.4-4.5) mmol/L ABG Ionized Calcium 4.4 L (4.5-5.3) mg/dL ABG Glucose 103 H 114 H (75-99) mg/dL Sodium (137-145) mmol/L Chloride (98-107) mmol/L Carbon Dioxide (22-30) mmol/L Glucose (74-99) mg/dL POC Glucose (mg/dL) (75-99) mg/dL Calcium (8.4-10.2) mg/dL Total Protein (6.3-8.2) g/dL Albumin (3.5-5.0) g/dL Arterial Blood Potassium (3.4-4.5) mmol/L Arterial Blood Glucose 103 H 114 H (75-99) mg/dL Crossmatch 12/07/20 12/07/20 12/07/20 Range/Units 16:45 16:45 17:01 WBC (3.8-10.6) k/uL Neutrophils # (1.3-7.7) k/uL Lymphocytes # (1.0-4.8) k/uL APTT (22.0-30.0) sec ABG pH 7.33 L (7.35-7.45) ABG pO2 82 L (83-108) mmHg ABG HCO3 (21-25) mmol/L ABG Total CO2 (19-24) mmol/L ABG O2 Saturation (94-97) % ABG Hematocrit (34.0-46.0) % ABG Potassium (3.4-4.5) mmol/L ABG Ionized Calcium (4.5-5.3) mg/dL ABG Glucose (75-99) mg/dL Sodium (137-145) mmol/L Chloride 109 H (98-107) mmol/L Carbon Dioxide 21 L (22-30) mmol/L Glucose 115 H (74-99) mg/dL POC Glucose (mg/dL) 107 H (75-99) mg/dL Calcium 7.9 L (8.4-10.2) mg/dL Total Protein 5.3 L (6.3-8.2) g/dL Albumin 3.1 L (3.5-5.0) g/dL Arterial Blood Potassium (3.4-4.5) mmol/L Arterial Blood Glucose (75-99) mg/dL Crossmatch 12/07/20 12/07/20 12/07/20 Range/Units 17:10 18:01 18:52 WBC (3.8-10.6) k/uL Neutrophils # (1.3-7.7) k/uL Lymphocytes # (1.0-4.8) k/uL APTT (22.0-30.0) sec ABG pH (7.35-7.45) ABG pO2 (83-108) mmHg ABG HCO3 (21-25) mmol/L ABG Total CO2 (19-24) mmol/L ABG O2 Saturation (94-97) % ABG Hematocrit (34.0-46.0) % ABG Potassium (3.4-4.5) mmol/L ABG Ionized Calcium (4.5-5.3) mg/dL ABG Glucose (75-99) mg/dL Sodium (137-145) mmol/L Chloride (98-107) mmol/L Carbon Dioxide (22-30) mmol/L Glucose (74-99) mg/dL POC Glucose (mg/dL) 100 H 111 H 102 H (75-99) mg/dL Calcium (8.4-10.2) mg/dL Total Protein (6.3-8.2) g/dL Albumin (3.5-5.0) g/dL Arterial Blood Potassium (3.4-4.5) mmol/L Arterial Blood Glucose (75-99) mg/dL Crossmatch 12/07/20 12/07/20 12/07/20 Range/Units 20:16 20:22 21:12 WBC 14.6 H (3.8-10.6) k/uL Neutrophils # 12.6 H (1.3-7.7) k/uL Lymphocytes # (1.0-4.8) k/uL APTT (22.0-30.0) sec ABG pH (7.35-7.45) ABG pO2 (83-108) mmHg ABG HCO3 (21-25) mmol/L ABG Total CO2 (19-24) mmol/L ABG O2 Saturation (94-97) % ABG Hematocrit (34.0-46.0) % ABG Potassium (3.4-4.5) mmol/L ABG Ionized Calcium (4.5-5.3) mg/dL ABG Glucose (75-99) mg/dL Sodium (137-145) mmol/L Chloride (98-107) mmol/L Carbon Dioxide (22-30) mmol/L Glucose (74-99) mg/dL POC Glucose (mg/dL) 118 H 107 H (75-99) mg/dL Calcium (8.4-10.2) mg/dL Total Protein (6.3-8.2) g/dL Albumin (3.5-5.0) g/dL Arterial Blood Potassium (3.4-4.5) mmol/L Arterial Blood Glucose (75-99) mg/dL Crossmatch 12/07/20 12/07/20 12/07/20 Range/Units 22:08 23:05 23:10 WBC 12.0 H (3.8-10.6) k/uL Neutrophils # 10.5 H (1.3-7.7) k/uL Lymphocytes # 0.6 L (1.0-4.8) k/uL APTT (22.0-30.0) sec ABG pH (7.35-7.45) ABG pO2 (83-108) mmHg ABG HCO3 (21-25) mmol/L ABG Total CO2 (19-24) mmol/L ABG O2 Saturation (94-97) % ABG Hematocrit (34.0-46.0) % ABG Potassium (3.4-4.5) mmol/L ABG Ionized Calcium (4.5-5.3) mg/dL ABG Glucose (75-99) mg/dL Sodium (137-145) mmol/L Chloride (98-107) mmol/L Carbon Dioxide (22-30) mmol/L Glucose (74-99) mg/dL POC Glucose (mg/dL) 104 H 100 H (75-99) mg/dL Calcium (8.4-10.2) mg/dL Total Protein (6.3-8.2) g/dL Albumin (3.5-5.0) g/dL Arterial Blood Potassium (3.4-4.5) mmol/L Arterial Blood Glucose (75-99) mg/dL Crossmatch 12/08/20 12/08/20 12/08/20 Range/Units 00:03 02:12 04:35 WBC 12.0 H (3.8-10.6) k/uL Neutrophils # 9.5 H (1.3-7.7) k/uL Lymphocytes # (1.0-4.8) k/uL APTT (22.0-30.0) sec ABG pH (7.35-7.45) ABG pO2 (83-108) mmHg ABG HCO3 (21-25) mmol/L ABG Total CO2 (19-24) mmol/L ABG O2 Saturation (94-97) % ABG Hematocrit (34.0-46.0) % ABG Potassium (3.4-4.5) mmol/L ABG Ionized Calcium (4.5-5.3) mg/dL ABG Glucose (75-99) mg/dL Sodium (137-145) mmol/L Chloride (98-107) mmol/L Carbon Dioxide (22-30) mmol/L Glucose (74-99) mg/dL POC Glucose (mg/dL) 104 H 107 H (75-99) mg/dL Calcium (8.4-10.2) mg/dL Total Protein (6.3-8.2) g/dL Albumin (3.5-5.0) g/dL Arterial Blood Potassium (3.4-4.5) mmol/L Arterial Blood Glucose (75-99) mg/dL Crossmatch 12/08/20 12/08/20 12/08/20 Range/Units 04:35 04:44 06:02 WBC (3.8-10.6) k/uL Neutrophils # (1.3-7.7) k/uL Lymphocytes # (1.0-4.8) k/uL APTT (22.0-30.0) sec ABG pH (7.35-7.45) ABG pO2 (83-108) mmHg ABG HCO3 (21-25) mmol/L ABG Total CO2 (19-24) mmol/L ABG O2 Saturation (94-97) % ABG Hematocrit (34.0-46.0) % ABG Potassium (3.4-4.5) mmol/L ABG Ionized Calcium (4.5-5.3) mg/dL ABG Glucose (75-99) mg/dL Sodium 136 L (137-145) mmol/L Chloride (98-107) mmol/L Carbon Dioxide (22-30) mmol/L Glucose 108 H (74-99) mg/dL POC Glucose (mg/dL) 115 H 120 H (75-99) mg/dL Calcium (8.4-10.2) mg/dL Total Protein 5.8 L (6.3-8.2) g/dL Albumin 3.4 L (3.5-5.0) g/dL Arterial Blood Potassium (3.4-4.5) mmol/L Arterial Blood Glucose (75-99) mg/dL Crossmatch 12/08/20 Range/Units 07:00 WBC (3.8-10.6) k/uL Neutrophils # (1.3-7.7) k/uL Lymphocytes # (1.0-4.8) k/uL APTT (22.0-30.0) sec ABG pH (7.35-7.45) ABG pO2 (83-108) mmHg ABG HCO3 (21-25) mmol/L ABG Total CO2 (19-24) mmol/L ABG O2 Saturation (94-97) % ABG Hematocrit (34.0-46.0) % ABG Potassium (3.4-4.5) mmol/L ABG Ionized Calcium (4.5-5.3) mg/dL ABG Glucose (75-99) mg/dL Sodium (137-145) mmol/L Chloride (98-107) mmol/L Carbon Dioxide (22-30) mmol/L Glucose (74-99) mg/dL POC Glucose (mg/dL) 100 H (75-99) mg/dL Calcium (8.4-10.2) mg/dL Total Protein (6.3-8.2) g/dL Albumin (3.5-5.0) g/dL Arterial Blood Potassium (3.4-4.5) mmol/L Arterial Blood Glucose (75-99) mg/dL Crossmatch
[2020-12-08 21:38] LABS: Glucose,Whole Blood 122 mg/dL (75-99)
[2020-12-08] MEDS: INSULIN ASPART (NovoLOG) 100 UNIT/ML VIAL SQ SCH (21:38)
[2020-12-08] MEDS: PRAMIPEXOLE 0.5 MG TAB PO SCH (21:41)
[2020-12-08] MEDS: SENNOSIDES-DOCUSATE SODIUM 1 EACH TAB PO SCH (21:41)
[2020-12-09 04:14] LABS: Basophils % (A) 0 %; Eosinophils # (A) 0.1 k/uL (0-0.7); Eosinophils % (A) 1 %; HCT 42.3 % (39.0-53.0); HGB 14.3 gm/dL (13.0-17.5); Lymphocytes # (A) 1.8 k/uL (1.0-4.8); Lymphocytes % (A) 11 %; MCH 30.9 pg (25.0-35.0); MCHC 33.9 g/dL (31.0-37.0); MCV 91.1 fL (80.0-100.0); Mean Platelet Volume 7.5; Monocytes % (A) 7 %; Neutrophils # (A) 12.2 k/uL (1.3-7.7); Neutrophils % (A) 80 %; Platelet Count 212 k/uL (150-450); RBC 4.64 m/uL (4.30-5.90); RDW 13.6 % (11.5-15.5); WBC 15.4 k/uL (3.8-10.6)
[2020-12-09 04:55] LABS: Ionized Calcium 4.8 mg/dL (4.5-5.3)
[2020-12-09 05:06] LABS: Potassium 4.6 mmol/L (3.5-5.1)
[2020-12-09 05:07] LABS: Albumin 3.3 g/dL (3.5-5.0); Calcium 8.8 mg/dL (8.4-10.2); Total Bilirubin 0.9 mg/dL (0.2-1.3); Total Protein 5.7 g/dL (6.3-8.2)
[2020-12-09] MEDS: KETOROLAC 15 MG/ML 1 ML VIAL IVP SCH ×4 (05:38→23:40)
[2020-12-09] MEDS: HYDROcodone/APAP 5-325MG 1 EACH TAB PO PRN ×2 (05:40→10:46)
[2020-12-09 06:54] LABS: Glucose,Whole Blood 111 mg/dL (75-99)
[2020-12-09] MEDS: INSULIN ASPART (NovoLOG) 100 UNIT/ML VIAL SQ SCH ×4 (06:56→20:26)
[2020-12-09] MEDS: IPRATROPIUM-ALBUTEROL 3 ML NEB INHALATION SCH ×4 (07:17→19:37)
[2020-12-09] MEDS ORDERED: ACETAMINOPHEN TAB 325 MG TAB PO PRN (07:59)
[2020-12-09] MEDS: CLOPIDOGREL 75 MG TAB PO SCH (08:12)
[2020-12-09] MEDS: ATORVASTATIN 40 MG TAB PO SCH (08:12)
[2020-12-09] MEDS: ASPIRIN 325 MG TAB PO SCH (08:12)
--- NOTE | 2020-12-09 08:12 | P.PN ---
Subjective Progress Note Date: 12/09/20 Principal diagnosis: Symptomatic multivessel coronary artery disease, NSTEMI this admission. Previous medical history of myocardial infarction approximately 20 years ago without intervention, hypertension, hyperlipidemia, previous tobacco dependence, daily marijuana vaping, restless leg syndrome, remote history of pneumonia as a child. Unvaccinated against Covid. POD #2 off-pump coronary artery bypass grafting 4 with sequential left internal mammary artery to the intermediate and left anterior descending artery, left radial artery graft to the obtuse marginal artery, reverse greater saphenous vein graft to the posterior descending coronary artery, occlusion of the left atrial appendage with a 35 mm AtriCure clip, epi-aortic ultrasonography, endovascular harvest of the left radial artery and left greater saphenous vein from the knee to the groin level Patient's currently sitting up in a recliner in the intensive care unit in no acute distress. States his pain is well controlled on current medication regimen, denies shortness of breath. States he was ambulatory several times in the hallway yesterday. Actively using incentive spirometry, achieving 750 mL. Oxygenating in the mid 90s on room air. Right internal jugular Cordis, mediastinal and left pleural chest tubes remain, Rodriguez catheter was discontinued this morning. No other new concerns. Objective - Vital Signs Vital signs: Vital Signs Temp 98.9 F 12/09/20 04:00 Pulse 85 12/09/20 07:31 Resp 24 12/09/20 07:00 BP 131/73 12/09/20 07:00 Pulse Ox 94 L 12/09/20 07:00 Intake & Output 12/08/20 12/09/20 12/09/20 18:59 06:59 18:59 Intake Total 689.5 723 20 Output Total 1420 485 Balance -730.5 238 20 Weight 115.666 kg 115.1 kg Intake: IV 472.0 243 20 .9NS pressure bag 69 3 Lactated Ringers 1,000 ml 300 240 20 @ 20 mls/hr IV .Q24H [facility] Rx#:[id number] Nitroglycerin-D5w Pmx 50 3.0 mg In Dextrose/Water 1 250ml.bag @ 5 MCG/MIN 1.5 mls/hr IV .Q24H [facility] Rx#: [id number] ceFAZolin 2 gm In Sodium 100 Chloride 0.9% 50 ml @ 100 mls/hr IVPB ONCE ONE Rx# :[id number] Intake, IV Titration 17.5 Amount Nitroglycerin-D5w Pmx 50 17.5 mg In Dextrose/Water 1 250ml.bag @ 5 MCG/MIN 1.5 mls/hr IV .Q24H [facility] Rx#: [id number] Oral 200 480 Output: Chest Tube Drainage 320 150 Chest Tube Mediastinal/ 320 150 Left Pleural Urine 1100 335 Other: Voiding Method Indwelling Catheter Indwelling Catheter # Voids 0 ABP, PAP, CO, CI - Last Documented Arterial Blood Pressure 116/94 Pulmonary Artery Pressure 25/11 Cardiac Output 6.1 Cardiac Index 2.6 - Exam CONSTITUTIONAL: Appears comfortable, cooperative, no acute distress RESPIRATORY: Lungs sounds diminished bilaterally. Respirations even, nonlabored. Currently on room air with oxygen saturation 94%. Able to achieve 750 mL on incentive spirometry. Strong cough. CARDIOVASCULAR: S1, S2 present. Regular rate and rhythm, sinus rhythm to sinus tach on telemetry. Sternum stable. Palpable peripheral pulses bilaterally. No edema present. No calf pain or tenderness noted. Heart hugger in place with patient demonstrating appropriate use. Antiembolism stockings, SCDs present. GASTROINTESTINAL: Abdomen soft, nontender, nondistended. Active bowel sounds present 4 quadrants. Tolerating diet. Positive flatus GENITOURINARY: Rodriguez discontinued this morning, due to void. Output overnight 20-30 mL per hour, 1435 mL in the last 24 hours INTEGUMENTARY: Skin is warm and dry with evidence of good perfusion. Anterior chest incision well approximated and covered with dry intact dressing. Left lower extremity EVH site well approximated without redness or drainage. Left radial artery harvest site without redness or drainage, good cap refill, patient able to wiggle fingers and patient transport orderly appropriately NEUROLOGIC: Cranial nerves II through XII intact MUSKULOSKELETAL: Able to move all extremities, strength equal bilaterally, gait normal PSYCHIATRIC: Alert and oriented to person place and time, appropriate affect, intact judgment and insight INVASIVE LINES AND TUBES: Mediastinal/left pleural chest tubes present and connected to wall suction, no air leaks present, 90 mL serosanguineous drainage overnight, 400 mL in the last 24 hours. Right internal jugular Cordis present. - Allied health notes Allied health notes reviewed: nursing - Labs CBC & Chem 7: 12/09/20 03:36 12/09/20 03:36 Labs: Abnormal Lab Results - Last 24 Hours (Table) 12/08/20 12/08/20 12/08/20 Range/Units 09:55 17:46 21:36 WBC (3.8-10.6) k/uL Neutrophils # (1.3-7.7) k/uL Glucose (74-99) mg/dL POC Glucose (mg/dL) 123 H 137 H 122 H (75-99) mg/dL Total Protein (6.3-8.2) g/dL Albumin (3.5-5.0) g/dL 12/09/20 12/09/20 12/09/20 Range/Units 03:36 03:36 06:53 WBC 15.4 H (3.8-10.6) k/uL Neutrophils # 12.2 H (1.3-7.7) k/uL Glucose 115 H (74-99) mg/dL POC Glucose (mg/dL) 111 H (75-99) mg/dL Total Protein 5.7 L (6.3-8.2) g/dL Albumin 3.3 L (3.5-5.0) g/dL - Imaging and Cardiology Chest x-ray: image reviewed Assessment and Plan Assessment: 1. Symptomatic multivessel coronary artery disease, NSTEMI this admission, status post four-vessel CABG 2. History of myocardial infarction approximately 20 years ago without intervention 3. Hypertension 4. Hyperlipidemia, cholesterol 170, LDL 122 5. Previous tobacco dependence, FEV1 50% predicted 6. Daily marijuana vaping 7. Restless leg syndrome 8. Remote history of pneumonia as a child Plan: 1. Continue to maximize medical therapy with aspirin, Plavix, statin, beta rj therapy. Will increase beta rj therapy as tolerated, increased to 50 mg twice daily today 2. Continue Norvasc for radial artery spasm prophylaxis, increased to 5 mg daily. Do not discontinue CCB without discussing with cardiac surgery 3. Encourage incentive spirometry use 10 times every hour while awake. Bronchodilators per pulmonology 4. Increase activity, ambulate as tolerated. PT/OT/cardiac rehab following 5. GI/DVT prophylaxis 6. Will monitor daily labs and x-rays. Electrolyte replacement per protocol. Will give 20 mg IVP lasix today 7. Insulin management per primary care service, patient is not diabetic with hemoglobin A1c 5.7%. Patient does need tight blood sugar control to promote sternal union and prevent infection 8. Discontinue Cordis. 9. Will discontinue chest tubes 10. Rodriguez catheter was discontinued this morning. May bladder scan and straight cathed for greater than 300 mL residual 11. Strict accurate intake and output. Daily weights 12. Will place transfer orders for 3 S. cardiac stepdown unit. May transfer bed available 13. More recommendations to follow Time with Patient: Greater than 30
[2020-12-09] MEDS: PANTOPRAZOLE 40 MG TABLET PO SCH (08:13)
[2020-12-09] MEDS: METOPROLOL TARTRATE 50 MG TAB PO SCH ×2 (08:13→20:24)
[2020-12-09] MEDS: HEPARIN SODIUM,PORCINE/PF 5,000 UNIT/0.5 ML SYRINGE SQ SCH ×3 (08:16→23:40)
[2020-12-09] MEDS ORDERED: FUROSEMIDE 10 MG/ML 2 ML VIAL IV ONE (08:48)
--- NOTE | 2020-12-09 08:49 | XR ---
EXAMINATION TYPE: XR chest 1V portable DATE OF EXAM: 12/09/2020 COMPARISON: 12/08/2020 INDICATION: Postop cardiac surgery TECHNIQUE: Single frontal view of the chest is obtained. FINDINGS: The heart size is normal. The pulmonary vasculature is normal. There is mild infiltrate at the left base may be related to some atelectasis. Mediastinal tube and left-sided chest tube remain in position. No pneumothorax is evident. Sternotomy wires are present from cardiac surgery. IMPRESSION: 1. Mild left lower lobe infiltrate likely related atelectasis. 2. Lines and catheters discussed above
--- NOTE | 2020-12-09 08:52 | P.PN ---
Subjective Progress Note Date: 12/09/20 Principal diagnosis: CAD This is a pleasant 65-year-old gentleman with hypertension and dyslipidemia and coronary artery disease who presented to the hospital with a chest discomfort and ruled in for acute coronary event. He underwent a heart catheterization which revealed calcified right and left coronary systems was triple-vessel CAD. He underwent coronary artery bypass grafting and this is day #2. The patient was seen this morning. He is doing overall a good recovery. He is maintaining sinus rhythm with sinus tachycardia and the dose of metoprolol was increased by the surgical team earlier today. Otherwise he is hemodynamically stable. Urine output is reasonable. The chest x-ray was reviewed and showed small pleural effusion. He was given a dose of Lasix. He is on dual antiplatelet therapy and intermediate dose of statin and going to increase the dose of statin to a high intensity at 80 mg by mouth daily at bedtime of Lipitor. Objective - Vital Signs Vital signs: Vital Signs Temp 98.9 F 12/09/20 04:00 Pulse 85 12/09/20 07:31 Resp 24 12/09/20 07:00 BP 131/73 12/09/20 07:00 Pulse Ox 94 L 12/09/20 07:00 Intake & Output 12/08/20 12/09/20 12/09/20 18:59 06:59 18:59 Intake Total 689.5 723 20 Output Total 1420 485 Balance -730.5 238 20 Weight 115.666 kg 115.1 kg Intake: IV 472.0 243 20 .9NS pressure bag 69 3 Lactated Ringers 1,000 ml 300 240 20 @ 20 mls/hr IV .Q24H [facility] Rx#:[id number] Nitroglycerin-D5w Pmx 50 3.0 mg In Dextrose/Water 1 250ml.bag @ 5 MCG/MIN 1.5 mls/hr IV .Q24H [facility] Rx#: [id number] ceFAZolin 2 gm In Sodium 100 Chloride 0.9% 50 ml @ 100 mls/hr IVPB ONCE ONE Rx# :[id number] Intake, IV Titration 17.5 Amount Nitroglycerin-D5w Pmx 50 17.5 mg In Dextrose/Water 1 250ml.bag @ 5 MCG/MIN 1.5 mls/hr IV .Q24H [facility] Rx#: [id number] Oral 200 480 Output: Chest Tube Drainage 320 150 Chest Tube Mediastinal/ 320 150 Left Pleural Urine 1100 335 Other: Voiding Method Indwelling Catheter Indwelling Catheter # Voids 0 ABP, PAP, CO, CI - Last Documented Arterial Blood Pressure 116/94 Pulmonary Artery Pressure 25/11 Cardiac Output 6.1 Cardiac Index 2.6 - Constitutional General appearance: Present: no acute distress - Respiratory Respiratory: bilateral: diminished - Cardiovascular Rhythm: regular - Labs CBC & Chem 7: 12/09/20 03:36 12/09/20 03:36 Labs: Abnormal Lab Results - Last 24 Hours (Table) 12/08/20 12/08/20 12/08/20 Range/Units 09:55 17:46 21:36 WBC (3.8-10.6) k/uL Neutrophils # (1.3-7.7) k/uL Glucose (74-99) mg/dL POC Glucose (mg/dL) 123 H 137 H 122 H (75-99) mg/dL Total Protein (6.3-8.2) g/dL Albumin (3.5-5.0) g/dL 12/09/20 12/09/20 12/09/20 Range/Units 03:36 03:36 06:53 WBC 15.4 H (3.8-10.6) k/uL Neutrophils # 12.2 H (1.3-7.7) k/uL Glucose 115 H (74-99) mg/dL POC Glucose (mg/dL) 111 H (75-99) mg/dL Total Protein 5.7 L (6.3-8.2) g/dL Albumin 3.3 L (3.5-5.0) g/dL Assessment and Plan Assessment: Assessment #1 CAD and status post CABG #2 hypertension #3 dyslipidemia Plan #1 agree about increasing the dose of metoprolol #2 increase the dose of Lipitor #3 Lasix was given #4 follow-up with the patient
[2020-12-09] MEDS ORDERED: ATORVASTATIN 80 MG TAB PO SCH (09:00)
--- NOTE | 2020-12-09 11:30 | P.PN ---
Subjective Progress Note Date: 12/09/20 Principal diagnosis: Multivessel coronary artery disease status post CABG postoperative day #2 This is a 65-year-old white male patient with past medical history of a myocardial infarction 20 years ago without intervention, hypertension, hyperlipidemia, previous history of smoking, in remission for last 2 years, does carry 75-lzhm-raat smoking history, currently vapes marijuana. Patient came into the hospital on 12/03/2020 for evaluation of chest pain. Patient came in to this facility as a transfer from an outside facility, he was diagnosed with non-ST elevated myocardial infarction. He had elevated troponins with first, second and third set at 0.546, 2.540, and 4.140. His EKG showed sinus bradycardia, with evidence of a septal infarct and inferior wall infarct of undetermined age. Echocardiogram showed mild concentric LVH, preserved LV function with an EF of 55-60%, basal inferior and inferolateral septal LV wall motion was akinetic. There was no aortic stenosis or regurgitation, and there was mild MR, mild TR, and PA pressure was less than 35 mmHg. Patient had a cardiac catheterization on 12/04/2020 which revealed chronic total occlusion of the RCA, calcified left main with disease distally in the range of 40-50%, severe disease involving the ostial left circumflex, and ostial and proximal LAD. Patient was referred to cardiothoracic surgery for evaluation of coronary artery bypass grafting. In the meantime he is on antiplatelet therapy with asp irin as well as high intensity statin, and he is on heparin infusion per weight- based protocol. Chest x-ray showed normal chest x-ray.patient was seen by Dr. Driver from CT surgery and his surgery is tentatively scheduled for , 12/07/2020. His at bedside FEV1 was in the order of 51% of predicted. He is not oxygen dependent at baseline. He is breathing comfortably. Remains pulse ox is 97%. The patient is seen today 12/06/2020 in follow-up on the selective care unit. He is currently resting comfortably in bed. Awake and alert in no acute distress. Denies any chest pain, palpitations, lightheadedness or dizziness. No worsening shortness of breath, cough or congestion. He remains on a heparin drip. White count 6.6. Hemoglobin 16.9. Platelets 233. Sodium 140. Potassium 4.2. Creatinine 1.03. Asencio virus not detected. Plan is for CABG tomorrow. Reevaluated today on 12/08/2020, patient is now status post CABG, he had off-pump CABG 4 with sequential AUGUSTINE to intermediate and LAD, left radial to obtuse marginal, saphenous vein graft to PDA. Patient was on mechanical ventilation last night, he was extubated from mechanical ventilation few hours later. Patient was extubated at 8:17 PM, and he is now on 2 L nasal cannula with O2 sats of 95%. Achieving 1000 mile on his incentive spirometer. He is hemodynamically stable, not requiring any inotropes or pressors. He is in sinus rhythm. Cardiac output is 6.1 cardiac index is 2.6. CVP is 7. Chest x-ray is reassuring, he has mediastinal left pleural chest tubes remain in place, no air leak noted. Serosanguineous drainage noted with 420 mL output in the last 8 hours and 780 mL output since surgery. WBC count today is 12.0 hemoglobin is 14.2. Normal renal profile is normal. Chest x-ray minimal atelectasis is noted. Reevaluated today on 12/09/2020, patient remains in the ICU, sitting up in a recliner, relatively asymptomatic, doing great with incentive spirometry. No issues overnight, patient denies any shortness of breath, denies any chest pain, no cough no wheezing, denies any GI symptoms. Patient is now on room air, and the relatively asymptomatic chest x-ray showed no evidence of active disease. WBC count is 15.4 hemoglobin is 14.3 lites are normal renal profile is normal creatinine 1.08 Objective - Vital Signs Vital signs: Vital Signs Temp 97.9 F 12/09/20 08:00 Pulse 89 12/09/20 11:23 Resp 28 H 12/09/20 11:00 BP 136/78 12/09/20 11:00 Pulse Ox 94 L 12/09/20 11:00 Intake & Output 12/08/20 12/09/20 12/09/20 18:59 06:59 18:59 Intake Total 689.5 723 40 Output Total 1420 485 225 Balance -730.5 238 -185 Weight 115.666 kg 115.1 kg Intake: IV 472.0 243 40 .9NS pressure bag 69 3 Lactated Ringers 1,000 ml 300 240 40 @ 20 mls/hr IV .Q24H [facility] Rx#:[id number] Nitroglycerin-D5w Pmx 50 3.0 mg In Dextrose/Water 1 250ml.bag @ 5 MCG/MIN 1.5 mls/hr IV .Q24H [facility] Rx#: [id number] ceFAZolin 2 gm In Sodium 100 Chloride 0.9% 50 ml @ 100 mls/hr IVPB ONCE ONE Rx# :[id number] Intake, IV Titration 17.5 Amount Nitroglycerin-D5w Pmx 50 17.5 mg In Dextrose/Water 1 250ml.bag @ 5 MCG/MIN 1.5 mls/hr IV .Q24H [facility] Rx#: [id number] Oral 200 480 Output: Chest Tube Drainage 320 150 0 Chest Tube Mediastinal/ 320 150 0 Left Pleural Urine 1100 335 225 Other: Voiding Method Indwelling Catheter Indwelling Catheter Indwelling Catheter # Voids 0 ABP, PAP, CO, CI - Last Documented Arterial Blood Pressure 116/94 Pulmonary Artery Pressure 25/11 Cardiac Output 6.1 Cardiac Index 2.6 - Exam CONSTITUTIONAL: Revealed a 65-year-old white male quite comfortable, in no distress. On room air. HEENT: PERRLA, EOMI, nonicteric, moist mucous membranes. RESPIRATORY: Symmetrical chest expansion, clear throughout no crackles or rhonchi or wheezes CARDIOVASCULAR: Distant S1 and S2, no S3 gallop, no murmur. GASTROINTESTINAL: Obese soft nontender no megaly no rebound no guarding. INTEGUMENTARY: No rashes, no cyanosis. NEUROLOGIC: Alert and oriented 3 no gross focal deficit. MUSKULOSKELETAL: No deformities and no limitation in range of motion. PSYCHIATRIC: Normal mood, affect and normal mental status examination. NEUROLGIC: Alert and oriented 3 never focal deficits. - Labs CBC & Chem 7: 12/09/20 03:36 12/09/20 03:36 Labs: Abnormal Lab Results - Last 24 Hours (Table) 12/08/20 12/08/20 12/09/20 Range/Units 17:46 21:36 03:36 WBC 15.4 H (3.8-10.6) k/uL Neutrophils # 12.2 H (1.3-7.7) k/uL Glucose (74-99) mg/dL POC Glucose (mg/dL) 137 H 122 H (75-99) mg/dL Total Protein (6.3-8.2) g/dL Albumin (3.5-5.0) g/dL 12/09/20 12/09/20 Range/Units 03:36 06:53 WBC (3.8-10.6) k/uL Neutrophils # (1.3-7.7) k/uL Glucose 115 H (74-99) mg/dL POC Glucose (mg/dL) 111 H (75-99) mg/dL Total Protein 5.7 L (6.3-8.2) g/dL Albumin 3.3 L (3.5-5.0) g/dL Assessment and Plan Assessment: Impression: Status post CABG, postoperative day #2 Symptomatic multivessel coronary artery disease. Non-ST elevation myocardial infarction. Benign essential hypertension. Remote nicotine dependence, ex-smoker. History of marijuana and vaping Postoperative atelectasis, resolved based on chest x-ray today. Recommendation: Continue beta blockers Plavix statin and aspirin. Could transfer patient to a monitor bed on selective. Continue bronchodilators. Continue incentive spirometer. Continue GI prophylaxis. Ambulate. We'll continue to follow. Time with Patient: Less than 30
[2020-12-09 11:45] LABS: Glucose,Whole Blood 180 mg/dL (75-99)
[2020-12-09] MEDS: amLODIPine 5 MG TAB PO SCH (11:45)
[2020-12-09 11:58] LABS: Glucose,Whole Blood 124 mg/dL (75-99)
--- NOTE | 2020-12-09 16:30 | P.PN ---
Subjective Progress Note Date: 12/09/20 Principal diagnosis: chest pain Patient is a 65 yo male with a history of coronary artery disease, HTN, and restless leg syndrome who was admitted for chest pain. He was found to have a NSTEMI. He was seen by cardiology, echo showed EF 55-60% with LV wall that is akinetic. A cardiac cath was completed on 12/04/20 which showed tripple vessel disease in the RCA, left circumflex, and LAD. He was seen by cardiothorasic surgery and preoperative teaching was started. Carotid doppler showed no hemodynamically significant stenosis, he underwent saphanous vein mapping as well. Pulmonary was consulted, he underwent PFT which was within normal limits and he was determined optimized for surgery. He underwent off pump 3 vessel CABG on 11/07/[address] Driver. He has been progressing well. Patient seen and examined at bedside. He denies pain. States that he feels muc h better without his chest tube and Rodriguez catheter. Denies any shortness of breath, chest pain is manageable with oral medications. General: non toxic, no distress, appears at stated age Derm: warm, dry Head: atraumatic, normocephalic, symmetric Eyes: EOMI, no lid lag, anicteric sclera Mouth: no lip lesion, mucus membranes moist Cardiovascular: S1S2 reg, no murmur, positive posterior tibial pulse bilateral, Lungs: Clear to auscultation bilaterally, no rhonchi, no rales , no accessory muscle use Abdominal: soft, nontender to palpation, no guarding, no appreciable organomegaly Ext: no gross muscle atrophy, no edema, no contractures Neuro: CN II-XI grossly intact, no focal neuro deficits Psych: Alert, oriented, appropriate affect NSTEMI, Multivessel CAD, S/P CABG X 3 - management per CT surgery - Cardio recs - ASA, Plavix, Lipitor, BB HTN, controlled - follow BP -Continue with Norvasc and Lopressor Dyslipiedmia - statin Leukoctyosis - Likely reactive, monitor her closely as is increasing however patient denies dyspnea or dysuria at this time. - follow CBC Restelss leg syndrome - mirapex Hypokalemia, resolved Chronic: Prior tobacco abuse Marijuana use DVT prophylaxis: Heparin Objective - Vital Signs Vital signs: Vital Signs Temp 97.9 F 12/09/20 08:00 Pulse 92 12/09/20 15:54 Resp 18 12/09/20 15:49 BP 119/66 12/09/20 15:49 Pulse Ox 98 12/09/20 15:49 Intake & Output 12/08/20 12/09/20 12/09/20 18:59 06:59 18:59 Intake Total 689.5 723 40 Output Total 1420 485 450 Balance -730.5 238 -410 Weight 115.666 kg 115.1 kg Intake: IV 472.0 243 40 .9NS pressure bag 69 3 Lactated Ringers 1,000 ml 300 240 40 @ 20 mls/hr IV .Q24H [facility] Rx#:[id number] Nitroglycerin-D5w Pmx 50 3.0 mg In Dextrose/Water 1 250ml.bag @ 5 MCG/MIN 1.5 mls/hr IV .Q24H [facility] Rx#: [id number] ceFAZolin 2 gm In Sodium 100 Chloride 0.9% 50 ml @ 100 mls/hr IVPB ONCE ONE Rx# :[id number] Intake, IV Titration 17.5 Amount Nitroglycerin-D5w Pmx 50 17.5 mg In Dextrose/Water 1 250ml.bag @ 5 MCG/MIN 1.5 mls/hr IV .Q24H [facility] Rx#: [id number] Oral 200 480 Output: Chest Tube Drainage 320 150 0 Chest Tube Mediastinal/ 320 150 0 Left Pleural Urine 1100 335 450 Other: Voiding Method Indwelling Catheter Indwelling Catheter Indwelling Catheter # Voids 0 ABP, PAP, CO, CI - Last Documented Arterial Blood Pressure 116/94 Pulmonary Artery Pressure 25/11 Cardiac Output 6.1 Cardiac Index 2.6 - Labs CBC & Chem 7: 12/09/20 03:36 12/09/20 03:36 Labs: Abnormal Lab Results - Last 24 Hours (Table) 12/08/20 12/08/20 12/09/20 Range/Units 17:46 21:36 03:36 WBC 15.4 H (3.8-10.6) k/uL Neutrophils # 12.2 H (1.3-7.7) k/uL Glucose (74-99) mg/dL POC Glucose (mg/dL) 137 H 122 H (75-99) mg/dL Total Protein (6.3-8.2) g/dL Albumin (3.5-5.0) g/dL 12/09/20 12/09/20 12/09/20 Range/Units 03:36 06:53 11:44 WBC (3.8-10.6) k/uL Neutrophils # (1.3-7.7) k/uL Glucose 115 H (74-99) mg/dL POC Glucose (mg/dL) 111 H 180 H (75-99) mg/dL Total Protein 5.7 L (6.3-8.2) g/dL Albumin 3.3 L (3.5-5.0) g/dL 12/09/20 Range/Units 11:56 WBC (3.8-10.6) k/uL Neutrophils # (1.3-7.7) k/uL Glucose (74-99) mg/dL POC Glucose (mg/dL) 124 H (75-99) mg/dL Total Protein (6.3-8.2) g/dL Albumin (3.5-5.0) g/dL
[2020-12-09 17:02] LABS: Glucose,Whole Blood 119 mg/dL (75-99)
[2020-12-09 20:12] LABS: Glucose,Whole Blood 137 mg/dL (75-99)
[2020-12-09] MEDS: SENNOSIDES-DOCUSATE SODIUM 1 EACH TAB PO SCH (20:24)
[2020-12-09] MEDS: PRAMIPEXOLE 0.5 MG TAB PO SCH (20:24)
[2020-12-09] MEDS: MELATONIN 3 MG TABLET PO SCH (20:24)
[2020-12-10] MEDS: HYDROcodone/APAP 5-325MG 1 EACH TAB PO PRN (02:40)
[2020-12-10] MEDS: KETOROLAC 15 MG/ML 1 ML VIAL IVP SCH ×2 (06:03→12:33)
[2020-12-10] MEDS: PANTOPRAZOLE 40 MG TABLET PO SCH (06:04)
[2020-12-10 06:15] LABS: Glucose,Whole Blood 106 mg/dL (75-99)
[2020-12-10] MEDS: INSULIN ASPART (NovoLOG) 100 UNIT/ML VIAL SQ SCH ×4 (06:15→20:37)
--- NOTE | 2020-12-10 08:02 | P.PN ---
Subjective Progress Note Date: 12/10/20 Principal diagnosis: Symptomatic multivessel coronary artery disease, NSTEMI this admission. Previous medical history of myocardial infarction approximately 20 years ago without intervention, hypertension, hyperlipidemia, previous tobacco dependence, daily marijuana vaping, restless leg syndrome, remote history of pneumonia as a child. Unvaccinated against Covid. POD #3 off-pump coronary artery bypass grafting 4 with sequential left internal mammary artery to the intermediate and left anterior descending artery, left radial artery graft to the obtuse marginal artery, reverse greater saphenous vein graft to the posterior descending coronary artery, occlusion of the left atrial appendage with a 35 mm AtriCure clip, epi-aortic ultrasonography, endovascular harvest of the left radial artery and left greater saphenous vein from the knee to the groin level Patient's currently sitting up in a recliner on the cardiac stepdown unit in no acute distress. States his pain is well controlled on current medication regimen, denies shortness of breath. States he was ambulatory several times in the hallway without difficulty. Actively using incentive spirometry, achieving 0962-1381 mL. Oxygenating in the mid 90s on room air. All lines tubes discontinued yesterday. No other new concerns. Objective - Vital Signs Vital signs: Vital Signs Temp 97.9 F 12/10/20 03:02 Pulse 87 12/10/20 03:02 Resp 14 12/10/20 03:02 BP 144/70 12/10/20 03:02 Pulse Ox 94 L 12/10/20 03:02 Intake & Output 12/09/20 12/10/20 12/10/20 18:59 06:59 18:59 Intake Total 40 Output Total 450 400 Balance -410 -400 Weight 114.2 kg Intake: IV 40 Lactated Ringers 1,000 ml 40 @ 20 mls/hr IV .Q24H [facility] Rx#:[id number] Output: Chest Tube Drainage 0 Chest Tube Mediastinal/ 0 Left Pleural Urine 450 400 Other: Voiding Method Indwelling Catheter Indwelling Catheter # Voids 0 ABP, PAP, CO, CI - Last Documented Arterial Blood Pressure 116/94 Pulmonary Artery Pressure 25/11 Cardiac Output 6.1 Cardiac Index 2.6 - Exam CONSTITUTIONAL: Appears comfortable, cooperative, no acute distress RESPIRATORY: Lungs sounds diminished bilaterally. Respirations even, nonlabored. Currently on room air with oxygen saturation 94%. Able to achieve 7449-6524 mL on incentive spirometry. Strong nonproductive cough. CARDIOVASCULAR: S1, S2 present. Regular rate and rhythm, sinus rhythm on telemetry. Sternum stable. Palpable peripheral pulses bilaterally. No edema present. No calf pain or tenderness noted. Heart hugger in place with patient demonstrating appropriate use. Antiembolism stockings, SCDs present. GASTROINTESTINAL: Abdomen soft, nontender, nondistended. Active bowel sounds present 4 quadrants. Tolerating diet. Positive flatus GENITOURINARY: Continues to void INTEGUMENTARY: Skin is warm and dry with evidence of good perfusion. Anterior chest incision well approximated and covered with dry intact dressing. Left low er extremity EVH site well approximated without redness or drainage. Left radial artery harvest site without redness or drainage, good cap refill, patient able to wiggle fingers and outside cutter hand appropriately NEUROLOGIC: Cranial nerves II through XII intact MUSKULOSKELETAL: Able to move all extremities, strength equal bilaterally, gait normal PSYCHIATRIC: Alert and oriented to person place and time, appropriate affect, intact judgment and insight - Allied health notes Allied health notes reviewed: nursing - Labs CBC & Chem 7: 12/09/20 03:36 12/09/20 03:36 Labs: Abnormal Lab Results - Last 24 Hours (Table) 12/09/20 12/09/20 12/09/20 Range/Units 11:44 11:56 17:00 POC Glucose (mg/dL) 180 H 124 H 119 H (75-99) mg/dL 12/09/20 12/10/20 Range/Units 20:11 06:14 POC Glucose (mg/dL) 137 H 106 H (75-99) mg/dL - Imaging and Cardiology Chest x-ray: image reviewed Assessment and Plan Assessment: 1. Symptomatic multivessel coronary artery disease, NSTEMI this admission, status post four-vessel CABG 2. History of myocardial infarction approximately 20 years ago without intervention 3. Hypertension 4. Hyperlipidemia, cholesterol 170, LDL 122 5. Previous tobacco dependence, FEV1 50% predicted 6. Daily marijuana vaping 7. Restless leg syndrome 8. Remote history of pneumonia as a child Plan: 1. Continue to maximize medical therapy with aspirin, Plavix, statin, beta rj therapy. Will increase beta rj therapy as tolerated 2. Continue Norvasc for radial artery spasm prophylaxis. Do not discontinue CCB without discussing with cardiac surgery 3. Encourage incentive spirometry use 10 times every hour while awake. Edelmira wendilators per pulmonology 4. Increase activity, ambulate as tolerated. PT/OT/cardiac rehab following 5. GI/DVT prophylaxis 6. Will monitor daily labs and x-rays. Electrolyte replacement per protocol. 7. Insulin management per primary care service, patient is not diabetic with hemoglobin A1c 5.7%. Patient does need tight blood sugar control to promote sternal union and prevent infection 8. First postop shower today 9. Strict accurate intake and output. Daily weights 10. Discharge planning in progress. Anticipate discharge to home with home care in the next 24-48 hours 11. More recommendations to follow Time with Patient: Greater than 30
[2020-12-10 08:06] LABS: HGB 13.1 gm/dL (13.0-17.5); MCH 30.3 pg (25.0-35.0); MCHC 33.4 g/dL (31.0-37.0); MCV 90.5 fL (80.0-100.0); Mean Platelet Volume 7.6; Platelet Count 224 k/uL (150-450); RBC 4.31 m/uL (4.30-5.90); RDW 13.6 % (11.5-15.5); WBC 10.7 k/uL (3.8-10.6)
[2020-12-10] MEDS: IPRATROPIUM-ALBUTEROL 3 ML NEB INHALATION SCH ×4 (08:12→20:23)
[2020-12-10 08:26] LABS: African American GFR (CKD) >90 (>60 ml/min/1.73 sqM); Anion Gap 9 mmol/L; Blood Urea Nitrogen 23 mg/dL (9-20); Calcium 8.6 mg/dL (8.4-10.2); Carbon Dioxide 26 mmol/L (22-30); Chloride 103 mmol/L (98-107); Glucose 111 mg/dL (74-99); Non-African American GFR(CKD) 80 (>60 ml/min/1.73 sqM); Sodium 138 mmol/L (137-145)
[2020-12-10] MEDS: METOPROLOL TARTRATE 25 MG TAB PO SCH ×2 (09:05→20:40)
[2020-12-10] MEDS: HEPARIN SODIUM,PORCINE/PF 5,000 UNIT/0.5 ML SYRINGE SQ SCH ×3 (09:05→23:48)
[2020-12-10] MEDS: traMADol 50 MG TAB PO SCH ×2 (09:06→20:22)
[2020-12-10] MEDS: CLOPIDOGREL 75 MG TAB PO SCH (09:06)
[2020-12-10] MEDS: ATORVASTATIN 80 MG TAB PO SCH (09:06)
[2020-12-10] MEDS: ASPIRIN 325 MG TAB PO SCH (09:06)
--- NOTE | 2020-12-10 09:22 | XR ---
EXAMINATION TYPE: XR chest 2V DATE OF EXAM: 12/10/2020 COMPARISON: 12/09/2020 INDICATION: Post cardiac surgery TECHNIQUE: Frontal and lateral views of the chest are obtained. FINDINGS: The heart size is normal. The pulmonary vasculature is normal. Streak opacities at the left base likely on the basis of atelectasis. Sternotomy wires are in the mid line.. No pneumothorax is evident. Left-sided chest tube is been removed. Minimal left pleural effus ion may be present. IMPRESSION: 1. Scattered infiltrates through the left lung with some linear opacity within the periphery of the l eft lung. Correlate for atelectasis. There is minimal left pleural fluid collection. Follow-up can be performed.
--- NOTE | 2020-12-10 10:49 | P.PN ---
Subjective Progress Note Date: 12/10/20 Principal diagnosis: Multivessel coronary artery disease, status post coronary artery bypass grafting This is a 65-year-old white male patient with past medical history of a myoca rdial infarction 20 years ago without intervention, hypertension, hyperlipidemia, previous history of smoking, in remission for last 2 years, does carry [id number] smoking history, currently vapes marijuana. Patient came into the hospital on 12/03/2020 for evaluation of chest pain. Patient came in to this facility as a transfer from an outside facility, he was diagnosed with non-ST elevated myocardial infarction. He had elevated troponins with first, second and third set at 0.546, 2.540, and 4.140. His EKG showed sinus bradycardia, with evidence of a septal infarct and inferior wall infarct of undetermined age. Echocardiogram showed mild concentric LVH, preserved LV function with an EF of 55-60%, basal inferior and inferolateral septal LV wall motion was akinetic. There was no aortic stenosis or regurgitation, and there was mild MR, mild TR, and PA pressure was less than 35 mmHg. Patient had a cardiac catheterization on 12/04/2020 which revealed chronic total occlusion of the RCA, calcified left main with disease distally in the range of 40-50%, severe disease involving the ostial left circumflex, and ostial and proximal LAD. Patient was referred to cardiothoracic surgery for evaluation of coronary artery bypass grafting. In the meantime he is on antiplatelet therapy with aspirin as well as high intensity statin, and he is on heparin infusion per weight-based protocol. Chest x-ray showed normal chest x-ray.patient was seen by Dr. Driver from CT surgery and his surgery is tentatively scheduled for , 12/07/2020. His at bedside FEV1 was in the order of 51% of predicted. He is not oxygen dependent at baseline. He is breathing comfortably. Remains pulse ox is 97%. The patient is seen today 12/06/2020 in follow-up on the selective care unit. He is currently resting comfortably in bed. Awake and alert in no acute distress. Denies any chest pain, palpitations, lightheadedness or dizziness. No worsening shortness of breath, cough or congestion. He remains on a heparin drip. White count 6.6. Hemoglobin 16.9. Platelets 233. Sodium 140. Pota ssium 4.2. Creatinine 1.03. Asencio virus not detected. Plan is for CABG tomorrow. Reevaluated today on 12/08/2020, patient is now status post CABG, he had off-pump CABG 4 with sequential AUGUSTINE to intermediate and LAD, left radial to obtuse marginal, saphenous vein graft to PDA. Patient was on mechanical ventilation last night, he was extubated from mechanical ventilation few hours later. Miguel watson was extubated at 8:17 PM, and he is now on 2 L nasal cannula with O2 sats of 95%. Achieving 1000 mile on his incentive spirometer. He is hemodynamically stable, not requiring any inotropes or pressors. He is in sinus rhythm. Cardiac output is 6.1 cardiac index is 2.6. CVP is 7. Chest x-ray is reassuring, he has mediastinal left pleural chest tubes remain in place, no air leak noted. Serosanguineous drainage noted with 420 mL output in the last 8 hours and 780 mL output since surgery. WBC count today is 12.0 hemoglobin is 14.2. Normal renal profile is normal. Chest x-ray minimal atelectasis is noted. Reevaluated today on 12/09/2020, patient remains in the ICU, sitting up in a rec liner, relatively asymptomatic, doing great with incentive spirometry. No issues overnight, patient denies any shortness of breath, denies any chest pain, no cough no wheezing, denies any GI symptoms. Patient is now on room air, and the relatively asymptomatic chest x-ray showed no evidence of active disease. WBC count is 15.4 hemoglobin is 14.3 lites are normal renal profile is normal creatinine 1.08 On the 12/10/2020 patient seen in follow-up on selective care unit, today is postop day #3 status post off-pump CABG 4 with sequential AUGUSTINE to intermediate in the LAD, left radial artery graft to optimize marginal, SVG to the PDA, occlusion of the left atrial appendage and endovascular harvest of the left radial artery and left greater saphenous vein. Patient is doing very well, he is currently on room air, he was transferred out of ICU yesterday. He had no acute events overnight, he is satting 93% on room air, his chest tubes and wires have been discontinued, Rodriguez has been discontinued, patient has been ambulating in the hallway, tolerating activity very well, he is achieving 1.5 L on the incentive spirometer today, breathing very comfortably, lung sounds are clear, today's chest x-ray has been reviewed showing scattered infiltrates through the left lung with some linear opacity within the periphery of the left lung, minimal left pleural fluid collection. Today's labs have been reviewed showing white blood cell count 10.7, hemoglobin is 13.1, his electrolytes and renal profile are unremarkable. Patient did receive 1 dose of IV Lasix per CT surgery today, he remains on nebulized bronchodilators. His incisional pain is controlled. Objective - Vital Signs Vital signs: Vital Signs Temp 98.0 F 12/10/20 08:00 Pulse 85 12/10/20 08:25 Resp 16 12/10/20 08:00 BP 113/69 12/10/20 08:00 Pulse Ox 93 L 12/10/20 09:08 Intake & Output 12/09/20 12/10/20 12/10/20 18:59 06:59 18:59 Intake Total 40 720 Output Total 450 400 Balance -410 -400 720 Weight 114.2 kg Intake: IV 40 Lactated Ringers 1,000 ml 40 @ 20 mls/hr IV .Q24H [facility] Rx#:[id number] Oral 720 Output: Chest Tube Drainage 0 Chest Tube Mediastinal/ 0 Left Pleural Urine 450 400 Other: Voiding Method Indwelling Catheter Indwelling Catheter Urinal # Voids 0 ABP, PAP, CO, CI - Last Documented Arterial Blood Pressure 116/94 Pulmonary Artery Pressure 25/11 Cardiac Output 6.1 Cardiac Index 2.6 - Exam GENERAL EXAM: Alert, very pleasant, 65-year-old white male, on room air, with pulse ox of 93%, comfortable in no apparent distress. HEAD: Normocephalic/atraumatic. EYES: Normal reaction of pupils, equal size. Conjunctiva pink, sclera white. NOSE: Clear with pink turbinates. THROAT: No erythema or exudates. NECK: No masses, no JVD, no thyroid enlargement, no adenopathy. CHEST: No chest wall deformity. Symmetrical expansion. Midsternal incision is clean dry and intact, chest tube sites are clean dry and intact LUNGS: Equal air entry with diminished breath sounds with crackles at the bases CVS: Regular rate and rhythm, normal S1 and S2, no gallops, no murmurs, no rubs ABDOMEN: Soft, nontender. No hepatosplenomegaly, normal bowel sounds, no guarding or rigidity. EXTREMITIES: No clubbing, no edema, no cyanosis, 2+ pulses and upper and lower extremities. MUSCULOSKELETAL: Muscle strength and tone normal. SPINE: No scoliosis or deformity SKIN: No rashes CENTRAL NERVOUS SYSTEM: Alert and oriented -3. No focal deficits, tone is normal in all 4 extremities. PSYCHIATRIC: Alert and oriented -3. Appropriate affect. Intact judgment and insight. - Labs CBC & Chem 7: 12/10/20 07:20 12/10/20 07:20 Labs: Abnormal Lab Results - Last 24 Hours (Table) 12/09/20 12/09/20 12/09/20 Range/Units 11:44 11:56 17:00 WBC (3.8-10.6) k/uL BUN (9-20) mg/dL Glucose (74-99) mg/dL POC Glucose (mg/dL) 180 H 124 H 119 H (75-99) mg/dL 12/09/20 12/10/20 12/10/20 Range/Units 20:11 06:14 07:20 WBC 10.7 H (3.8-10.6) k/uL BUN (9-20) mg/dL Glucose (74-99) mg/dL POC Glucose (mg/dL) 137 H 106 H (75-99) mg/dL 12/10/20 Range/Units 07:20 WBC (3.8-10.6) k/uL BUN 23 H (9-20) mg/dL Glucose 111 H (74-99) mg/dL POC Glucose (mg/dL) (75-99) mg/dL Assessment and Plan Plan: Assessment: #1. Symptomatic multivessel coronary artery disease, status post off-pump four- vessel coronary artery bypass grafting with sequential AUGUSTINE to the intermediate and LAD, left radial artery graft to obtuse marginal, SVG to the PDA. Occlusion of the left atrial appendage with 35mmAtricure clip, at the aortic ultrasonography, and endovascular harvests of the left radial artery and left greater saphenous vein from the groin, postoperative day #3, surgery was on 12/07/[address] Driver #2. Acute non-ST elevated myocardial infarction #3. Previous history of myocardial infarction 20 years ago #4. Hypertension #5. Hyper lipidemia #6. Previous history of tobacco dependence, in remission for last 2 years, carries a [id number] smoking history #7. Marijuana vaping, bedside FEV1 50% of predicted #8. Restless leg syndrome #9. Remote history of pneumonia Plan: Patient is doing well No acute events overnight Today's chest x-ray has been reviewed, patient received 1 dose of Lasix per CT surgery Maintaining stable to saturations on room air Work on incentive spirometer Continue on bronchodilators Tolerating activity, tolerating ambulation Possible discharge home tomorrow I performed a history & physical examination of the patient and discussed their management with my nurse practitioner, Elise Zelaya. I reviewed the nurse practitioner's note and agree with the documented findings and plan of care. Lung sounds are positive for clear breath sounds. The findings and the impression was discussed with the patient. I attest to the documentation by the nurse practitioner. Time with Patient: Less than 30
--- NOTE | 2020-12-10 10:55 | P.PN ---
Subjective Progress Note Date: 12/10/20 HISTORY OF PRESENT ILLNESS: This is a 65-year-old male with a past medical history significant for previous myocardial infarction without stenting and hypertension. Patient does not follow with a data communications software consultant (states it has been over 10 years since he saw a data communications software consultant). We have been asked to see the patient in consultation for chest pain. Patient examined at the bedside. Patient initially presented to [facility] secondary to chest pain. Patient reports he was outside working in his yard when he began having chest pain. He describes the pain as feeling like a heartburn sensation. He denies any radiation of the pain. He reports feeling short of breath and diaphoretic at the time. He states he went across the street to his friend who is a elementary ell teacher who recommended he go to the hospital for further evaluation. At the time of examination, patient denies chest pain or pressure. EKG reveals sinus mechanism with Q waves in inferior leads and septal leads Chest xray negative for acute process Laboratory data: WBC 8.0. Hemoglobin 15.6. Platelet count 242. Sodium 139. Potassium 4.0. BUN 12. Creatinine 1.03. Magnesium 2.4. BNP 198. Troponin 0. 546. 2.540. 4.140. Current home cardiac medications include losartan-hydrochlorothiazide 50-12.5mg daily 12/05/2020 Patient underwent cardiac catheterization yesterday with Dr. Akers revealing calcified right and left coronary system. Chronic total occlusion of the RCA. RCA fills by bridging collaterals from the left coronary system. Calcified left main with disease distally that appeared to be in the range of 40-50%. Severe disease involving the ostial left circumflex. Severe disease involving the ostial and proximal left anterior descending artery. Cardiothoracic surgery was consulted and have evaluated the patient. They are planning for CABG tentatively on . Patient remains on IV heparin. Patient denies having any chest pain or pressure today. Denies shortness of breath. Echocardiogram completed revealed ejection fraction 55-60%, basal inferior and basal inferior septal LV wall akinesis. 12/06/2020 Patient examined this morning at the bedside. Patient denies chest pain or pressure. Denies SOB. Vital signs are stable. He remains on IV heparin. 12/10/2020 Patient has been transferred out of the ICU to the cardiac stepdown unit. He is status post CABG 4: with sequential left internal mammary artery to the intermediate and left anterior descending artery, left radial artery graft to the obtuse marginal artery, reverse greater saphenous vein graft to the posterior descending coronary artery. POD #3. Patient examined this morning. He is sitting up in the chair. Patient denies shortness of breath. He reports mild discomfort at the surgical site. He is using his incentive spirometer and pulling 1500 mL. He states he was up in the hallway this morning ambulate in. PHYSICAL EXAM: VITAL SIGNS: Reviewed. GENERAL: Well-developed in no acute distress. HEENT: Head is normocephalic. Pupils are equal, round. Sclerae anicteric. Mucous membranes of the mouth are moist. Neck supple. No JVD or thyromegaly LUNGS: Respirations even and unlabored. Lungs diminished bilaterally. HEART: Regular rate and rhythm. S1 and S2 heard. Heart hugger present. ABDOMEN: Soft. Nondistended. Nontender. EXTREMITIES: Normal range of motion. No clubbing or cyanosis. Peripheral pulses intact. No lower extremity edema. Right radial cath site with pulse present. NEUROLOGIC: Awake and alert. Oriented x 3. ASSESSMENT: Non-STEMI, status post cardiac catheterization revealing multivessel CAD Status post CABG x4 History of SC 20 years ago without PCI Hypertension Hyperlipidemia PLAN: Continue current cardiac medications Continue telemetry monitoring Increase activity as tolerated Continue use of incentive spirometer Continue postoperative management per CTS Further recommendations pending patient's course Nurse practitioner note has been reviewed by physician. Signing provider agrees with the documented findings, assessment, and plan of care. Objective - Vital Signs Vital signs: Vital Signs Temp 98.0 F 12/10/20 08:00 Pulse 85 12/10/20 08:25 Resp 16 12/10/20 08:00 BP 113/69 12/10/20 08:00 Pulse Ox 93 L 12/10/20 09:08 Intake & Output 12/09/20 12/10/20 12/10/20 18:59 06:59 18:59 Intake Total 40 720 Output Total 450 400 Balance -410 -400 720 Weight 114.2 kg Intake: IV 40 Lactated Ringers 1,000 ml 40 @ 20 mls/hr IV .Q24H [facility] Rx#:[id number] Oral 720 Output: Chest Tube Drainage 0 Chest Tube Mediastinal/ 0 Left Pleural Urine 450 400 Other: Voiding Method Indwelling Catheter Indwelling Catheter Urinal # Voids 0 ABP, PAP, CO, CI - Last Documented Arterial Blood Pressure 116/94 Pulmonary Artery Pressure 25/11 Cardiac Output 6.1 Cardiac Index 2.6 - Labs CBC & Chem 7: 12/10/20 07:20 12/10/20 07:20 Labs: Abnormal Lab Results - Last 24 Hours (Table) 12/09/20 12/09/20 12/09/20 Range/Units 11:44 11:56 17:00 WBC (3.8-10.6) k/uL BUN (9-20) mg/dL Glucose (74-99) mg/dL POC Glucose (mg/dL) 180 H 124 H 119 H (75-99) mg/dL 12/09/20 12/10/20 12/10/20 Range/Units 20:11 06:14 07:20 WBC 10.7 H (3.8-10.6) k/uL BUN (9-20) mg/dL Glucose (74-99) mg/dL POC Glucose (mg/dL) 137 H 106 H (75-99) mg/dL 12/10/20 Range/Units 07:20 WBC (3.8-10.6) k/uL BUN 23 H (9-20) mg/dL Glucose 111 H (74-99) mg/dL POC Glucose (mg/dL) (75-99) mg/dL
[2020-12-10 12:05] LABS: Glucose,Whole Blood 96 mg/dL (75-99)
[2020-12-10] MEDS: amLODIPine 5 MG TAB PO SCH (12:33)
[2020-12-10 17:11] LABS: Glucose,Whole Blood 85 mg/dL (75-99)
--- NOTE | 2020-12-10 17:59 | P.PN ---
Subjective Progress Note Date: 12/10/20 (delayed charting seen at 1045) Principal diagnosis: chest pain Patient is a 65 yo male with a history of coronary artery disease, HTN, and restless leg syndrome who was admitted for chest pain. He was found to have a NSTEMI. He was seen by cardiology, echo showed EF 55-60% with LV wall that is akinetic. A cardiac cath was completed on 12/04/20 which showed tripple vessel disease in the RCA, left circumflex, and LAD. He was seen by cardiothorasic surgery and preoperative teaching was started. Carotid doppler showed no hemodynamically significant stenosis, he underwent saphanous vein mapping as well. Pulmonary was consulted, he underwent PFT which was within normal limits and he was determined optimized for surgery. He underwent off pump 3 vessel CABG on 11/07/[address] Driver. He has been progressing well. Patient seen and examined at bedside. Doing well, no shortness of breath, pain controlled, feel like be can have a BM today. General: non toxic, no distress, appears at stated age Derm: warm, dry Head: atraumatic, normocephalic, symmetric Eyes: EOMI, no lid lag, anicteric sclera Mouth: no lip lesion, mucus membranes moist Cardiovascular: S1S2 reg, no murmur, positive posterior tibial pulse bilateral, Lungs: Clear to auscultation bilaterally, no rhonchi, no rales , no accessory muscle use Abdominal: soft, nontender to palpation, no guarding, no appreciable organomegaly Ext: no gross muscle atrophy, no edema, no contractures Neuro: CN II-XI grossly intact, no focal neuro deficits Psych: Alert, oriented, appropriate affect NSTEMI, Multivessel CAD, S/P CABG X 3 - management per CT surgery - Cardio recs - ASA, Plavix, Lipitor, BB HTN, controlled - follow BP -Continue with Norvasc and Lopressor Dyslipiedmia - statin Leukoctyosis, improved - Likely reactive, monitor her closely as is increasing however patient denies dyspnea or dysuria at this time. - follow CBC Restless leg syndrome - mirapex Hypokalemia, resolved Chronic: Prior tobacco abuse Marijuana use DVT prophylaxis: Heparin Objective - Vital Signs Vital signs: Vital Signs Temp 97.7 F 12/10/20 16:00 Pulse 91 12/10/20 16:00 Resp 16 12/10/20 16:00 BP 126/77 12/10/20 16:00 Pulse Ox 97 12/10/20 16:00 Intake & Output 12/09/20 12/10/20 12/10/20 18:59 06:59 18:59 Intake Total 40 1560 Output Total 450 400 Balance -410 -400 1560 Weight 114.2 kg Intake: IV 40 Lactated Ringers 1,000 ml 40 @ 20 mls/hr IV .Q24H [facility] Rx#:[id number] Oral 1560 Output: Chest Tube Drainage 0 Chest Tube Mediastinal/ 0 Left Pleural Urine 450 400 Other: Voiding Method Indwelling Catheter Indwelling Catheter Urinal # Voids 0 ABP, PAP, CO, CI - Last Documented Arterial Blood Pressure 116/94 Pulmonary Artery Pressure 25/11 Cardiac Output 6.1 Cardiac Index 2.6 - Labs CBC & Chem 7: 12/10/20 07:20 12/10/20 07:20 Labs: Abnormal Lab Results - Last 24 Hours (Table) 12/09/20 12/10/20 12/10/20 Range/Units 20:11 06:14 07:20 WBC 10.7 H (3.8-10.6) k/uL BUN (9-20) mg/dL Glucose (74-99) mg/dL POC Glucose (mg/dL) 137 H 106 H (75-99) mg/dL 12/10/20 Range/Units 07:20 WBC (3.8-10.6) k/uL BUN 23 H (9-20) mg/dL Glucose 111 H (74-99) mg/dL POC Glucose (mg/dL) (75-99) mg/dL
[2020-12-10 20:05] LABS: Glucose,Whole Blood 137 mg/dL (75-99)
[2020-12-10] MEDS: MUPIROCIN 2% OINT 22 GM TUBE NASAL SCH (20:22)
[2020-12-10] MEDS: MELATONIN 3 MG TABLET PO SCH (20:37)
[2020-12-10] MEDS: SENNOSIDES-DOCUSATE SODIUM 1 EACH TAB PO SCH (20:37)
[2020-12-10] MEDS ORDERED: traMADol 50 MG TAB PO SCH (21:00)
[2020-12-10] MEDS: PRAMIPEXOLE 0.5 MG TAB PO SCH (21:48)
[2020-12-11] MEDS: INSULIN ASPART (NovoLOG) 100 UNIT/ML VIAL SQ SCH ×2 (06:37→13:06)
[2020-12-11 06:40] LABS: Glucose,Whole Blood 99 mg/dL (75-99)
[2020-12-11] MEDS: PANTOPRAZOLE 40 MG TABLET PO SCH (06:41)
--- NOTE | 2020-12-11 07:25 | P.PN ---
Subjective Progress Note Date: 12/11/20 Principal diagnosis: Symptomatic multivessel coronary artery disease, NSTEMI this admission. Previous medical history of myocardial infarction approximately 20 years ago without intervention, hypertension, hyperlipidemia, previous tobacco dependence, daily marijuana vaping, restless leg syndrome, remote history of pneumonia as a child. Unvaccinated against Covid. POD #4 off-pump coronary artery bypass grafting 4 with sequential left internal mammary artery to the intermediate and left anterior descending artery, left radial artery graft to the obtuse marginal artery, reverse greater saphenous vein graft to the posterior descending coronary artery, occlusion of the left atrial appendage with a 35 mm AtriCure clip, epi-aortic ultrasonography, endovascular harvest of the left radial artery and left greater saphenous vein from the knee to the groin level Patient's currently sitting up in a recliner on the cardiac stepdown unit in no acute distress. States his pain is well controlled on current medication regimen, denies shortness of breath. States he has been ambulatory several times in the hallway without difficulty, received first postoperative shower yesterday. Actively using incentive spirometry, achieving 8237-7257 mL. Oxygenating in the mid 90s on room air. States he feels ready to go home today. No other new concerns. Objective - Vital Signs Vital signs: Vital Signs Temp 98.7 F 12/11/20 03:23 Pulse 83 12/11/20 03:23 Resp 16 12/11/20 03:23 BP 129/81 12/11/20 03:23 Pulse Ox 98 12/11/20 03:23 Intake & Output 12/10/20 12/11/20 12/11/20 18:59 06:59 18:59 Intake Total 1740 Output Total 650 Balance 1740 -650 Weight 114.6 kg Intake: Oral 1740 Output: Urine 650 Other: Voiding Method Urinal Urinal ABP, PAP, CO, CI - Last Documented Arterial Blood Pressure 116/94 Pulmonary Artery Pressure 25/11 Cardiac Output 6.1 Cardiac Index 2.6 - Exam CONSTITUTIONAL: Appears comfortable, cooperative, no acute distress RESPIRATORY: Lungs sounds diminished bilaterally. Respirations even, nonlabored. Currently on room air with oxygen saturation 98%. Able to achieve 7780-6407 mL on incentive spirometry. Strong nonproductive cough. CARDIOVASCULAR: S1, S2 present. Regular rate and rhythm, sinus rhythm on telemetry. Sternum stable. Palpable peripheral pulses bilaterally. No edema present. No calf pain or tenderness noted. Heart hugger in place with patient demonstrating appropriate use. Antiembolism stockings, SCDs present. GASTROINTESTINAL: Abdomen soft, nontender, nondistended. Active bowel sounds present 4 quadrants. Tolerating diet. Positive bowel movement per patient GENITOURINARY: Continues to void INTEGUMENTARY: Skin is warm and dry with evidence of good perfusion. Anterior chest incision well approximated. Left lower extremity EVH site well approximated without redness or drainage. Left radial artery harvest site without redness or drainage, good cap refill, patient able to wiggle fingers and hog raiser appropriately NEUROLOGIC: Cranial nerves II through XII intact MUSKULOSKELETAL: Able to move all extremities, strength equal bilaterally, gait normal PSYCHIATRIC: Alert and oriented to person place and time, appropriate affect, intact judgment and insight - Labs CBC & Chem 7: 12/10/20 07:20 07 07:20 Labs: Abnormal Lab Results - Last 24 Hours (Table) 12/10/20 12/10/20 12/10/20 Range/Units 07:20 07:20 20:03 WBC 10.7 H (3.8-10.6) k/uL BUN 23 H (9-20) mg/dL Glucose 111 H (74-99) mg/dL POC Glucose (mg/dL) 137 H (75-99) mg/dL - Imaging and Cardiology Chest x-ray: image reviewed Assessment and Plan Assessment: 1. Symptomatic multivessel coronary artery disease, NSTEMI this admission, status post four-vessel CABG 2. History of myocardial infarction approximately 20 years ago without intervention 3. Hypertension 4. Hyperlipidemia, cholesterol 170, LDL 122 5. Previous tobacco dependence, FEV1 50% predicted 6. Daily marijuana vaping 7. Restless leg syndrome 8. Remote history of pneumonia as a child Plan: 1. Continue to maximize medical therapy with aspirin, Plavix, statin, beta rj therapy. Will increase beta rj therapy as tolerated, increased to 75 mg twice daily yesterday 2. Continue Norvasc for radial artery spasm prophylaxis. Do not discontinue CCB without discussing with cardiac surgery 3. Encourage incentive spirometry use 10 times every hour while awake. Bronchodilators per pulmonology 4. Increase activity, ambulate as tolerated. PT/OT/cardiac rehab following 5. GI/DVT prophylaxis 6. Will monitor daily labs and x-rays. Electrolyte replacement per protocol. 7. Insulin management per primary care service, patient is not diabetic with hemoglobin A1c 5.7%. Patient does need tight blood sugar control to promote sternal union and prevent infection 8. Strict accurate intake and output. Daily weights 9. Discharge planning in progress. Anticipate discharge to home with home care this afternoon 10. More recommendations to follow Time with Patient: Greater than 30
--- NOTE | 2020-12-11 08:01 | XR ---
EXAMINATION TYPE: XR chest 2V DATE OF EXAM: 12/11/2020 COMPARISON: 12/10/2020 INDICATION: Post cardiac surgery TECHNIQUE: Frontal and lateral views of the chest are obtained. FINDINGS: The heart size is normal. The pulmonary vasculature is normal. Left lower lobe infiltrate and linear opacities are stable. Continued follow-up is recommended. Mini mal left pleural effusion is present. IMPRESSION: 1. Stable left lower lobe infiltrates and minimal pleural effusion. Continued follow-up is recommende jose m
[2020-12-11 08:08] LABS: HCT 39.9 % (39.0-53.0); HGB 13.5 gm/dL (13.0-17.5); MCH 30.4 pg (25.0-35.0); MCHC 33.9 g/dL (31.0-37.0); MCV 89.7 fL (80.0-100.0); Mean Platelet Volume 7.4; Platelet Count 297 k/uL (150-450); RBC 4.45 m/uL (4.30-5.90); RDW 13.5 % (11.5-15.5); WBC 8.8 k/uL (3.8-10.6)
[2020-12-11 08:15] LABS: African American GFR (CKD) >90 (>60 ml/min/1.73 sqM); Anion Gap 7 mmol/L; Blood Urea Nitrogen 22 mg/dL (9-20); Calcium 8.7 mg/dL (8.4-10.2); Carbon Dioxide 26 mmol/L (22-30); Chloride 105 mmol/L (98-107); Glucose 109 mg/dL (74-99); Non-African American GFR(CKD) 88 (>60 ml/min/1.73 sqM); Potassium 4.2 mmol/L (3.5-5.1); Sodium 138 mmol/L (137-145)
[2020-12-11 08:29] VITALS: BP 127/73; RESP 20; TEMP 98.2
[2020-12-11] MEDS: traMADol 50 MG TAB PO SCH (08:29)
[2020-12-11] MEDS: HEPARIN SODIUM,PORCINE/PF 5,000 UNIT/0.5 ML SYRINGE SQ SCH (08:30)
[2020-12-11] MEDS: CLOPIDOGREL 75 MG TAB PO SCH (08:30)
[2020-12-11] MEDS: METOPROLOL TARTRATE 25 MG TAB PO SCH (08:30)
[2020-12-11] MEDS: ASPIRIN 325 MG TAB PO SCH (08:30)
[2020-12-11] MEDS: ATORVASTATIN 80 MG TAB PO SCH (08:30)
[2020-12-11] MEDS: IPRATROPIUM-ALBUTEROL 3 ML NEB INHALATION SCH ×2 (09:14→12:35)
[2020-12-11 09:18] VITALS: PULSE 80
--- NOTE | 2020-12-11 09:42 | P.DS ---
Providers Date of admission: 12/04/20 00:50 Expected date of discharge: 12/11/20 Attending physician: Bruno Driver Consults: 12/04/20 00:50 Consult Physician Urgent Consulting Provider: Marlyn Howe Consult Reason/Comments: nstemi Do you want consulting provider notified?: Yes 12/05/20 07:08 Consult Physician Routine Consulting Provider: Santi Gilbert Consult Reason/Comments: pulm clearance; open heart Do you want consulting provider notified?: Already Contacted 12/06/20 08:31 Consult to Anesthesia Routine Consulting Provider: Anesthesia,Services Consult Reason/Comments: Cardiac Surgery Pre-Op 12/06/20 12:44 Consult Physician Routine Consulting Provider: Bruno Driver Consult Reason/Comments: cab Do you want consulting provider notified?: Already Contacted 12/07/20 16:26 Consult Physician Routine Consulting Provider: Shara Oconnell Consult Reason/Comments: med mgmt Do you want consulting provider notified?: Already Contacted Primary care physician: [facility] Course: FINAL DIAGNOSIS: 1. Symptomatic multivessel coronary artery disease, non-STEMI this admission 2. History of myocardial infarction 20 years ago without intervention 3. Hypertension 4. Hyperlipidemia, cholesterol 170, LDL 122 5. Previous tobacco dependence, FEV1 50% of predicted 6. Daily marijuana babying 7. Restless leg syndrome 8. Remote history of pneumonia as a child PRINCIPAL PROCEDURE: 1. Off-pump coronary artery bypass grafting 4 with sequential left internal mammary artery to the intermediate and left anterior descending artery, left radial artery graft to the obtuse marginal artery, reverse greater saphenous vein graft to the posterior descending coronary artery 2. Occlusion of the left atrial appendage with a 35 mm AtriCure clip 3. Epi-aortic ultrasonography 4. Endovascular harvest of the left radial artery and left greater saphenous vein from the knee to the groin level HISTORY OF PRESENT ILLNESS: This is a 65-year-old gentleman who [facility] [place] [facility]. He reported development of chest tightness with burning sensation radiating to his jaw while outside gardening. Associated symp toms included diaphoresis; he denied any nausea, vomiting, shortness of breath, or any other symptoms. Initially he reported to [facility], was found to have elevated troponins and was subsequently transferred to [facility] for further workup. Serial troponins were positive, as high as 4.140, and the patient was ruled in for non-STEMI. 12-lead EKG demonstrated normal sinus rhythm with Q waves in the inferior leads and septal leads. Chest x-ray demonstrated no acute process. The patient was recommended to undergo heart catheterization which demonstrated 30-40% stenosis to the left main coronary artery, 70-80% stenosis to the ostial circumflex coronary artery, 80- 90% stenosis to the ostial left anterior descending coronary artery, and 80-90% stenosis to the mid left anterior descending coronary artery with chronically occluded right coronary artery. Transthoracic echocardiogram was also completed demonstrating normal left ventricular systolic function with EF 55-60%, basal inferior LV wall motion and inferoseptal LV wall motion akinesis, mild mitral regurgitation, and mild tricuspid regurgitation. Due to his heart catheterization findings consultation was placed to Dr. Driver from cardiothoracic surgery. He was recommended to undergo urgent off-pump coronary artery bypass surgery. The usual perioperative course was discussed in detail with the patient and his family, all risks and benefits were explained, all questions were answered, and consent was obtained to proceed with surgery. The patient was kept inpatient due to the nature of his disease process. HOSPITAL COURSE: The patient was brought to the preoperative area 12/07/20, prepared in the usual fashion, and subsequently taken to the operating room where Dr. Driver performed four-vessel off-pump CABG. Upon completion of surgery the patient was transferred to the cardiovascular intensive care unit where he was recovered and monitored hemodynamically. He was extubated, all lines, tubes, and drips were discontinued when appropriate, and he was transferred to 3 S. cardiac stepdown unit for further monitoring and rehabilitation. His oxygen was titrated down, he continued to work with physical and occupational therapy, he was tolerating oral diet, his pain was controlled, and he was ready to be discharged to home with [facility] on postoperative day #4. He received written and verbal instruction regarding his medications, activity restrictions, signs and symptoms requiring physician notification, and follow-up appointments. COMPLICATIONS: The patient experienced no postoperative complications. Patient Condition at Discharge: Serious Plan - Discharge Summary Discharge Rx Participant: No New Discharge Prescriptions: New Aspirin 325 mg PO DAILY #30 tab Metoprolol Tartrate [Lopressor] 75 mg PO BID #120 tab amLODIPine [Norvasc] 5 mg PO DAILY@1200 #30 tab Sennosides-Docusate Sodium [Senokot-S] 2 each PO HS PRN tab PRN Reason: Constipation Acetaminophen Tab [Tylenol] 650 mg PO Q4HR PRN tab PRN Reason: Fever And/ Or Pain Atorvastatin [Lipitor] 80 mg PO DAILY #30 tab Melatonin 3 mg PO HS PRN tablet PRN Reason: Insomnia Clopidogrel [Plavix] 75 mg PO DAILY #30 tab Pantoprazole [Protonix] 40 mg PO AC-BRKFST #30 tablet.dr Continue traMADol HCL [Ultram] 100 mg PO DAILY traMADol HCL 50 mg PO HS Pramipexole [Mirapex] 0.5 mg PO HS Discontinued Losartan-Hctz 50-12.5 mg [Hyzaar 50-12.5] 1 tab PO DAILY Aspirin/Acetaminophen/Caffeine [Excedrin Extra Strength Caplet] 2 tab PO BID Discharge Medication List traMADol HCL 50 mg PO HS 12/03/20 [History] traMADol HCL [Ultram] 100 mg PO DAILY 12/03/20 [History] Pramipexole [Mirapex] 0.5 mg PO HS 12/04/20 [History] Acetaminophen Tab [Tylenol] 650 mg PO Q4HR PRN tab 12/11/20 [Rx] Aspirin 325 mg PO DAILY #30 tab 12/11/20 [Rx] Atorvastatin [Lipitor] 80 mg PO DAILY #30 tab 12/11/20 [Rx] Clopidogrel [Plavix] 75 mg PO DAILY #30 tab 12/11/20 [Rx] Melatonin 3 mg PO HS PRN tablet 12/11/20 [Rx] Metoprolol Tartrate [Lopressor] 75 mg PO BID #120 tab 12/11/20 [Rx] Pantoprazole [Protonix] 40 mg PO AC-BRKFST #30 tablet. 12/11/20 [Rx] Sennosides-Docusate Sodium [Senokot-S] 2 each PO HS PRN tab 12/11/20 [Rx] amLODIPine [Norvasc] 5 mg PO DAILY@1200 #30 tab 12/11/20 [Rx] Follow up Appointment(s)/Referral(s): Santi Gilbert MD [STAFF PHYSICIAN] - 01/08/21 1:15 pm Gris Humphrey NPC [Nurse Practitioner] - 12/18/20 11:00 am (To be seen in the surgeons office behind the [facility], [address]) Rehab [facility] PH,Cardiac [NON-STAFF] - 4 Weeks (You will be called in approximately 4-6 weeks for evaluation for cardiac rehab) Ankur Glasgow MD [STAFF PHYSICIAN] - 12/26/20 11:45 am (Appt will be with AIDAN Pizano) Bruno Driver MD [STAFF PHYSICIAN] - 01/08/21 2:45 pm [facility], [NON-STAFF] - Jose Valente DO [Primary Care Provider] - 2 Weeks (Office will call to make appointment-patient needs to call office to update contact information) Ambulatory/Diagnostic Orders: Complete Blood Count w/diff [LAB.AMB] Time Frame: 3 Days, Location: None Selected Comprehensive Metabolic Panel [LAB.AMB] Time Frame: 3 Days, Location: None Selected Activity/Diet/Wound Care/Special Instructions: DISCHARGE INSTRUCTIONS: 1. No driving for 4 weeks, or until physician gives their ok. 2. The patient should sleep in their own bed, no medical bed needed. 3. Stairs are not an issue. If the bedroom is upstairs, it is advised that the patient go up at night and down in the morning for the first week. Go slowly, using handrail and take 1 step at a time. 4. MARLY hose are to be worn for 30 days or until physician discontinues. 5. Heart hugger is to be worn 100% of the time until physician discontinues.(except when showering) 6. No lifting, pushing, or pulling more than 10 pounds for 12 weeks. The physician will advise of any restriction changes. 7. The patient is expected to continue the prescribed walking program. 8. Continue pain control per as needed orders. 9. Continue with incentive spirometry and splinting/heart hugger until otherwise directed by the physician. 10. Must shower daily using liquid antibacterial soap and a separate white washcloth for each individual incision. 11. Routine sternal incision care. No powders, lotions, ointments on incisions. No dressings are necessary on incisions unless they are draining. Dermabond tape is to remain on sternal incision until surgeon follow-up. 12. Please call surgeon/ADVANCE SEAL DELIVERY SYSTEM MAINTAINER for temp greater than 101 F or purulent drainage from incisions. 13. Narcotic medications were discussed with the patient, including the potential for misuse, addiction, and abuse. Opiod Start Talking form was not reviewed with the patient as the patient is not receiving a new prescription but is going home on the same narcotics he was admitted on 14. All prescriptions given by surgeon for 30 days. Refills need to be filled through supervisory aide/primary care physician. 15. A Red armband has been placed on the patient. It should be worn for 30 days post surgery and will be removed by the cardiac surgeons. If an ER visit is necessary, please make sure the number on the Red armband is called. 16. You have been referred to and are expected to begin Cardiac Rehab in approximately 4-6 weeks. HOME HEALTH SERVICES TO PROVIDE: RN SKILLED HOME CARE SERVICES FOR POST-OP SURGICAL PATIENTS WITH THE FOLLOWING: Coronary Artery Bypass Surgery (CABG), Mitral Valve Replacement/ Repair ( MVR), Aortic Valve Replacement/Repair (AVR) RN TO CONTINUE EDUCATION FROM ``ROAD TO A HEALTH HEART PATIENT EDUCATION MANUAL (GIVEN TO PATIENT IN THE HOSPITAL) MEDICATION RECONCILIATION WITH EDUCATION NEEDED ON FIRST HOME VISIT EMPHASIZE IMPORTANCE OF WEARING BREAST SUPPORT/HEART HUGGER ENCOURAGE USE OF INCENTIVE SPIROMETER 10 X EVERY HOUR WHILE AWAKE ENCOURAGE UTILIZATION OF LOWER EXTREMITY COMPRESSION STOCKINGS/MARLY HOSE and ELEVATE LEGS ABOVE LEVEL OF HEART WHILE AT REST. ENCOURAGE AMBULATION 3-5x/day INCREASING TOLERATES, WHILE AVOIDING EXTREMES IN TEMPERATURE FREQUENCY: RN TO OPEN THE PATIENT WITHIN 24 HOURS OF DISCHARGE FROM THE HOSPITAL WITH TELEHEALTH INSTALLED AT [facility], RN TO VISIT 2-3 X A WEEK FOR 4 WEEKS ESTABLISHED BY PATIENT NEEDS. LABORATORY: CBC, CMP TO BE DRAWN ON THE THIRD DAY HOME, (RAN STAT) FAX RESULTS TO [phone]. TELEHEALTH PARAMETERS: WEIGHT: NOTIFY MD OF WEIGHT GAIN OF 2 LBS IN 24 HOURS OR 5 LBS IN ONE WEEK HR: NOTIFY MD OF HR <55 BPM OR HR>100 BPM BP: NOTIFY MD IF BP <90/55 OR BP>140/100 O2 SAT: NOTIFY MD IF PO2<93% ON ROOM AIR SEND TELEHEALTH REPORT TO HIGHWAY ADMINISTRATIVE ENGINEER AND CARDIOVASCULAR SURGEON THE FIRST WEEK OF CARE AND THEN BI-WEEKLY. PLEASE ADDITIONALLY COMMUNICATE ANY ABNORMALS AND NEW FINDINGS TO THE SURGEONS OFFICE. For any questions or concerns please call med asst Gris @ or Don @ Discharge Disposition: HOME WITH HOME HEALTH SERVICES
--- NOTE | 2020-12-11 09:51 | P.PN ---
Subjective Progress Note Date: 12/11/20 Principal diagnosis: chest pain Patient is a 65 yo male with a history of coronary artery disease, HTN, and restless leg syndrome who was admitted for chest pain. He was found to have a NSTEMI. He was seen by cardiology, echo showed EF 55-60% with LV wall that is akinetic. A cardiac cath was completed on 12/04/20 which showed tripple vessel disease in the RCA, left circumflex, and LAD. He was seen by cardiothorasic surgery and preoperative teaching was started. Carotid doppler showed no hemodynamically significant stenosis, he underwent saphanous vein mapping as well. Pulmonary was consulted, he underwent PFT which was within normal limits and he was determined optimized for surgery. He underwent off pump 3 vessel CABG on 11/07/[address] Driver. He has been progressing well. Patient seen and examined at bedside. No chest pain, no shortness of breath, up and walking, + BM this morning. General: non toxic, no distress, appears at stated age Derm: warm, dry Head: atraumatic, normocephalic, symmetric Eyes: EOMI, no lid lag, anicteric sclera Mouth: no lip lesion, mucus membranes moist Cardiovascular: S1S2 reg, no murmur, positive posterior tibial pulse bilateral, Lungs: Clear to auscultation bilaterally, no rhonchi, no rales , no accessory muscle use Abdominal: soft, nontender to palpation, no guarding, no appreciable organomegaly Ext: no gross muscle atrophy, no edema, no contractures Neuro: CN II-XI grossly intact, no focal neuro deficits Psych: Alert, oriented, appropriate affect NSTEMI, Multivessel CAD, S/P CABG X 3 - management per CT surgery - Cardio recs - ASA, Plavix, Lipitor, BB HTN, controlled - follow BP - Continue with Norvasc and Lopressor Dyslipiedmia - statin Restless leg syndrome - mirapex Chronic: Prior tobacco abuse Marijuana use Leukoctyosis, resolved Hypokalemia, resolved DVT prophylaxis: Heparin D/W Gris and likely home today with home health Objective - Vital Signs Vital signs: Vital Signs Temp 98.2 F 12/11/20 08:00 Pulse 80 12/11/20 09:26 Resp 20 12/11/20 08:00 BP 127/73 12/11/20 08:00 Pulse Ox 95 12/11/20 08:00 Intake & Output 12/10/20 12/11/20 12/11/20 18:59 06:59 18:59 Intake Total 1740 118 Output Total 650 Balance 1740 -650 118 Weight 114.6 kg Intake: Oral 1740 118 Output: Urine 650 Other: Voiding Method Urinal Urinal ABP, PAP, CO, CI - Last Documented Arterial Blood Pressure 116/94 Pulmonary Artery Pressure 25/11 Cardiac Output 6.1 Cardiac Index 2.6 - Labs CBC & Chem 7: 12/11/20 07:38 12/11/20 07:38 Labs: Abnormal Lab Results - Last 24 Hours (Table) 12/10/20 12/11/20 Range/Units 20:03 07:38 BUN 22 H (9-20) mg/dL Glucose 109 H (74-99) mg/dL POC Glucose (mg/dL) 137 H (75-99) mg/dL
--- NOTE | 2020-12-11 11:32 | P.PN ---
Subjective Progress Note Date: 12/11/20 HISTORY OF PRESENT ILLNESS: This is a 65-year-old male with a past medical history significant for previous myocardial infarction without stenting and hypertension. Patient does not follow with a vice president of human resources (states it has been over 10 years since he saw a vice president of human resources). We have been asked to see the patient in consultation for chest pain. Patient examined at the bedside. Patient initially presented to [facility] secondary to chest pain. Patient reports he was outside working in his yard when he began having chest pain. He describes the pain as feeling like a heartburn sensation. He denies any radiation of the pain. He reports feeling short of breath and diaphoretic at the time. He states he went across the street to his friend who is a service associate who recommended he go to the hospital for further evaluation. At the time of examination, patient denies chest pain or pressure. EKG reveals sinus mechanism with Q waves in inferior leads and septal leads Chest xray negative for acute process Laboratory data: WBC 8.0. Hemoglobin 15.6. Platelet count 242. Sodium 139. Potassium 4.0. BUN 12. Creatinine 1.03. Magnesium 2.4. BNP 198. Troponin 0. 546. 2.540. 4.140. Current home cardiac medications include losartan-hydrochlorothiazide 50-12.5mg daily 12/05/2020 Patient underwent cardiac catheterization yesterday with Dr. Akers revealing calcified right and left coronary system. Chronic total occlusion of the RCA. RCA fills by bridging collaterals from the left coronary system. Calcified left main with disease distally that appeared to be in the range of 40-50%. Severe disease involving the ostial left circumflex. Severe disease involving the ostial and proximal left anterior descending artery. Cardiothoracic surgery was consulted and have evaluated the patient. They are planning for CABG tentatively on . Patient remains on IV heparin. Patient denies having any chest pain or pressure today. Denies shortness of breath. Echocardiogram completed revealed ejection fraction 55-60%, basal inferior and basal inferior septal LV wall akinesis. 12/06/2020 Patient examined this morning at the bedside. Patient denies chest pain or pressure. Denies SOB. Vital signs are stable. He remains on IV heparin. 12/10/2020 Patient has been transferred out of the ICU to the cardiac stepdown unit. He is status post CABG 4: with sequential left internal mammary artery to the intermediate and left anterior descending artery, left radial artery graft to the obtuse marginal artery, reverse greater saphenous vein graft to the posterior descending coronary artery. POD #3. Patient examined this morning. He is sitting up in the chair. Patient denies shortness of breath. He reports mild discomfort at the surgical site. He is using his incentive spirometer and pulling 1500 mL. He states he was up in the hallway this morning ambulate in. 12/11/2020 Patient examined this morning. Patient is sitting up in the chair. Patient denies shortness of breath. He denies chest pain or pressure. He is using his incentive spirometer and pulling 1500 mL. Patient has been up ambulating in the hallway. Vital signs are stable. Telemetry reveals sinus mechanism. PHYSICAL EXAM: VITAL SIGNS: Reviewed. GENERAL: Well-developed in no acute distress. HEENT: Head is normocephalic. Pupils are equal, round. Sclerae anicteric. Mucous membranes of the mouth are moist. Neck supple. No JVD or thyromegaly LUNGS: Respirations even and unlabored. Lungs diminished bilaterally. HEART: Regular rate and rhythm. S1 and S2 heard. Heart hugger present. ABDOMEN: Soft. Nondistended. Nontender. EXTREMITIES: Normal range of motion. No clubbing or cyanosis. Peripheral pulses intact. No lower extremity edema. NEUROLOGIC: Awake and alert. Oriented x 3. ASSESSMENT: Non-STEMI, status post cardiac catheterization revealing multivessel CAD Status post CABG x4 History of [place] 20 years ago without PCI Hypertension Hyperlipidemia PLAN: Continue current cardiac medications Continue telemetry monitoring Increase activity as tolerated Continue use of incentive spirometer Continue postoperative management per CTS Patient is stable for discharge home today from a cardiac standpoint Nurse practitioner note has been reviewed by physician. Signing provider agrees with the documented findings, assessment, and plan of care. Objective - Vital Signs Vital signs: Vital Signs Temp 98.2 F 12/11/20 08:00 Pulse 80 12/11/20 09:26 Resp 20 12/11/20 08:00 BP 127/73 12/11/20 08:00 Pulse Ox 95 12/11/20 08:00 Intake & Output 12/10/20 12/11/20 12/11/20 18:59 06:59 18:59 Intake Total 1740 118 Output Total 650 275 Balance 1740 -650 -157 Weight 114.6 kg Intake: Oral 1740 118 Output: Urine 650 275 Other: Voiding Method Urinal Urinal # Bowel Movements 1 ABP, PAP, CO, CI - Last Documented Arterial Blood Pressure 116/94 Pulmonary Artery Pressure 25/11 Cardiac Output 6.1 Cardiac Index 2.6 - Labs CBC & Chem 7: 12/11/20 07:38 12/11/20 07:38 Labs: Abnormal Lab Results - Last 24 Hours (Table) 12/10/20 12/11/20 Range/Units 20:03 07:38 BUN 22 H (9-20) mg/dL Glucose 109 H (74-99) mg/dL POC Glucose (mg/dL) 137 H (75-99) mg/dL
--- NOTE | 2020-12-11 11:39 | P.PN ---
Subjective Progress Note Date: 12/11/20 Principal diagnosis: Multivessel coronary artery disease, status post coronary artery bypass grafting This is a 65-year-old white male patient with past medical history of a myoca rdial infarction 20 years ago without intervention, hypertension, hyperlipidemia, previous history of smoking, in remission for last 2 years, does carry [id number] smoking history, currently vapes marijuana. Patient came into the hospital on 12/03/2020 for evaluation of chest pain. Patient came in to this facility as a transfer from an outside facility, he was diagnosed with non-ST elevated myocardial infarction. He had elevated troponins with first, second and third set at 0.546, 2.540, and 4.140. His EKG showed sinus bradycardia, with evidence of a septal infarct and inferior wall infarct of undetermined age. Echocardiogram showed mild concentric LVH, preserved LV function with an EF of 55-60%, basal inferior and inferolateral septal LV wall motion was akinetic. There was no aortic stenosis or regurgitation, and there was mild MR, mild TR, and PA pressure was less than 35 mmHg. Patient had a cardiac catheterization on 12/04/2020 which revealed chronic total occlusion of the RCA, calcified left main with disease distally in the range of 40-50%, severe disease involving the ostial left circumflex, and ostial and proximal LAD. Patient was referred to cardiothoracic surgery for evaluation of coronary artery bypass grafting. In the meantime he is on antiplatelet therapy with aspirin as well as high intensity statin, and he is on heparin infusion per weight-based protocol. Chest x-ray showed normal chest x-ray.patient was seen by Dr. Driver from CT surgery and his surgery is tentatively scheduled for , 12/07/2020. His at bedside FEV1 was in the order of 51% of predicted. He is not oxygen dependent at baseline. He is breathing comfortably. Remains pulse ox is 97%. The patient is seen today 12/06/2020 in follow-up on the selective care unit. He is currently resting comfortably in bed. Awake and alert in no acute distress. Denies any chest pain, palpitations, lightheadedness or dizziness. No worsening shortness of breath, cough or congestion. He remains on a heparin drip. White count 6.6. Hemoglobin 16.9. Platelets 233. Sodium 140. Pota ssium 4.2. Creatinine 1.03. Asencio virus not detected. Plan is for CABG tomorrow. Reevaluated today on 12/08/2020, patient is now status post CABG, he had off-pump CABG 4 with sequential AUGUSTINE to intermediate and LAD, left radial to obtuse marginal, saphenous vein graft to PDA. Patient was on mechanical ventilation last night, he was extubated from mechanical ventilation few hours later. Miguel watson was extubated at 8:17 PM, and he is now on 2 L nasal cannula with O2 sats of 95%. Achieving 1000 mile on his incentive spirometer. He is hemodynamically stable, not requiring any inotropes or pressors. He is in sinus rhythm. Cardiac output is 6.1 cardiac index is 2.6. CVP is 7. Chest x-ray is reassuring, he has mediastinal left pleural chest tubes remain in place, no air leak noted. Serosanguineous drainage noted with 420 mL output in the last 8 hours and 780 mL output since surgery. WBC count today is 12.0 hemoglobin is 14.2. Normal renal profile is normal. Chest x-ray minimal atelectasis is noted. Reevaluated today on 12/09/2020, patient remains in the ICU, sitting up in a rec liner, relatively asymptomatic, doing great with incentive spirometry. No issues overnight, patient denies any shortness of breath, denies any chest pain, no cough no wheezing, denies any GI symptoms. Patient is now on room air, and the relatively asymptomatic chest x-ray showed no evidence of active disease. WBC count is 15.4 hemoglobin is 14.3 lites are normal renal profile is normal creatinine 1.08 On the 12/10/2020 patient seen in follow-up on selective care unit, today is postop day #3 status post off-pump CABG 4 with sequential AUGUSTINE to intermediate in the LAD, left radial artery graft to optimize marginal, SVG to the PDA, occlusion of the left atrial appendage and endovascular harvest of the left radial artery and left greater saphenous vein. Patient is doing very well, he is currently on room air, he was transferred out of ICU yesterday. He had no acute events overnight, he is satting 93% on room air, his chest tubes and wires have been discontinued, Rodriguez has been discontinued, patient has been ambulating in the hallway, tolerating activity very well, he is achieving 1.5 L on the incentive spirometer today, breathing very comfortably, lung sounds are clear, today's chest x-ray has been reviewed showing scattered infiltrates through the left lung with some linear opacity within the periphery of the left lung, minimal left pleural fluid collection. Today's labs have been reviewed showing white blood cell count 10.7, hemoglobin is 13.1, his electrolytes and renal profile are unremarkable. Patient did receive 1 dose of IV Lasix per CT surgery today, he remains on nebulized bronchodilators. His incisional pain is controlled. On 12/11/2020 patient is seen in follow-up on selective care unit, today is postoperative day #4, status post off-pump CABG 4, occlusion of the left atrial appendage and endovascular harvest of left radial artery and left greater sap henous vein. Patient is doing very well, has had no acute events overnight, he is on room air Pulse ox is 95-98%. Breathing comfortably, denies pain, vital signs have been stable, hemodynamically his remained stable. Today's chest x- ray shows stable left lower lobe infiltrate and minimal pleural effusion. Patient has been working incentive spirometer, yesterday he received a dose of Lasix. His been tolerating ambulation. His incisions are clean dry and intact. He is anticipated to be discharged home today Objective - Vital Signs Vital signs: Vital Signs Temp 98.2 F 12/11/20 08:00 Pulse 80 12/11/20 09:26 Resp 20 12/11/20 08:00 BP 127/73 12/11/20 08:00 Pulse Ox 95 12/11/20 08:00 Intake & Output 12/10/20 12/11/20 12/11/20 18:59 06:59 18:59 Intake Total 1740 118 Output Total 650 275 Balance 1740 -650 -157 Weight 114.6 kg Intake: Oral 1740 118 Output: Urine 650 275 Other: Voiding Method Urinal Urinal # Bowel Movements 1 ABP, PAP, CO, CI - Last Documented Arterial Blood Pressure 116/94 Pulmonary Artery Pressure 25/11 Cardiac Output 6.1 Cardiac Index 2.6 - Exam GENERAL EXAM: Alert, very pleasant, 65-year-old white male, on room air, with pulse ox of 93%, comfortable in no apparent distress. HEAD: Normocephalic/atraumatic. EYES: Normal reaction of pupils, equal size. Conjunctiva pink, sclera white. NOSE: Clear with pink turbinates. THROAT: No erythema or exudates. NECK: No masses, no JVD, no thyroid enlargement, no adenopathy. CHEST: No chest wall deformity. Symmetrical expansion. Midsternal incision is clean dry and intact, chest tube sites are clean dry and intact LUNGS: Equal air entry with diminished breath sounds with crackles at the bases CVS: Regular rate and rhythm, normal S1 and S2, no gallops, no murmurs, no rubs ABDOMEN: Soft, nontender. No hepatosplenomegaly, normal bowel sounds, no guarding or rigidity. EXTREMITIES: No clubbing, no edema, no cyanosis, 2+ pulses and upper and lower extremities. MUSCULOSKELETAL: Muscle strength and tone normal. SPINE: No scoliosis or deformity SKIN: No rashes CENTRAL NERVOUS SYSTEM: Alert and oriented -3. No focal deficits, tone is normal in all 4 extremities. PSYCHIATRIC: Alert and oriented -3. Appropriate affect. Intact judgment and insight. - Labs CBC & Chem 7: 12/11/20 07:38 12/11/20 07:38 Labs: Abnormal Lab Results - Last 24 Hours (Table) 12/10/20 12/11/20 Range/Units 20:03 07:38 BUN 22 H (9-20) mg/dL Glucose 109 H (74-99) mg/dL POC Glucose (mg/dL) 137 H (75-99) mg/dL Assessment and Plan Plan: Assessment: #1. Symptomatic multivessel coronary artery disease, status post off-pump four- vessel coronary artery bypass grafting with sequential AUGUSTINE to the intermediate and LAD, left radial artery graft to obtuse marginal, SVG to the PDA. Occlusion of the left atrial appendage with 35mmAtricure clip, at the aortic ultrasonography, and endovascular harvests of the left radial artery and left greater saphenous vein from the groin, postoperative day #4, surgery was on 12/07/[address] Driver #2. Acute non-ST elevated myocardial infarction #3. Previous history of myocardial infarction 20 years ago #4. Hypertension #5. Hyper lipidemia #6. 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 Marijuana vaping, bedside FEV1 50% of predicted #8. Restless leg syndrome #9. Remote history of pneumonia Plan: No acute events overnight Today's chest x-ray has been reviewed, and labs have been noted Maintaining stable to saturations on room air Work on incentive spirometer Continue on bronchodilators Tolerating activity, tolerating ambulation Possible discharge home today, patient will need outpatient follow-up with Dr. Ridley in the office in one week I performed a history & physical examination of the patient and discussed their management with my nurse practitioner, Elise Zelaya. I reviewed the nurse practitioner's note and agree with the documented findings and plan of care. Lung sounds are positive for clear breath sounds. The findings and the im pression was discussed with the patient. I attest to the documentation by the nurse practitioner. Time with Patient: Less than 30
[2020-12-11 11:53] LABS: Glucose,Whole Blood 150 mg/dL (75-99)
[2020-12-11] MEDS: amLODIPine 5 MG TAB PO SCH (13:15)
== END 2020-12-11 13:37 | disposition home health service (06) | DRG 234 ==
LOC: EC 23:03 → 3SCARD 12-04 00:50 → 2SICU 12-07 15:37 → 3SCARD 12-09 15:14
PROVIDERS: ADMIT Thoracic Surgery (Cardiothoracic Vascular Surgery); ATTEND Thoracic Surgery (Cardiothoracic Vascular Surgery)
PROC: B2111ZZ Fluoroscopy of Multiple Coronary Arteries using Low Osmolar Contrast (ICD-10-PCS; 2020-12-04)
PROC: 4A023N7 Measurement of Cardiac Sampling and Pressure, Left Heart, Percutaneous Approach (ICD-10-PCS; 2020-12-04)
PROC: B44HZZZ Ultrasonography of Bilateral Lower Extremity Arteries (ICD-10-PCS; 2020-12-04)
PROC: 03BC4ZZ Excision of Left Radial Artery, Percutaneous Endoscopic Approach (ICD-10-PCS; principal; 2020-12-07 12:00)
PROC: 02L70CK Occlusion of Left Atrial Appendage with Extraluminal Device, Open Approach (ICD-10-PCS; principal; 2020-12-07 12:00)
PROC: 02100AW Bypass Coronary Artery, One Artery from Aorta with Autologous Arterial Tissue, Open Approach (ICD-10-PCS; principal; 2020-12-07 12:00)
PROC: 0210093 Bypass Coronary Artery, One Artery from Coronary Artery with Autologous Venous Tissue, Open Approach (ICD-10-PCS; principal; 2020-12-07 12:00)
PROC: 06BQ4ZZ Excision of Left Saphenous Vein, Percutaneous Endoscopic Approach (ICD-10-PCS; principal; 2020-12-07 12:00)
PROC: 02110Z9 Bypass Coronary Artery, Two Arteries from Left Internal Mammary, Open Approach (ICD-10-PCS; principal; 2020-12-07 12:00)
PROC: B24BZZ4 Ultrasonography of Heart with Aorta, Transesophageal (ICD-10-PCS; 2020-12-07 12:00)
DX: I21.4 Non-ST elevation (NSTEMI) myocardial infarction (principal); J98.11 Atelectasis; D72.829 Elevated white blood cell count, unspecified; E78.00 Pure hypercholesterolemia, unspecified; I25.119 Atherosclerotic heart disease of native coronary artery with unspecified angina pectoris; Z20.822 Contact with and (suspected) exposure to COVID-19; I25.84 Coronary atherosclerosis due to calcified coronary lesion; I10 Essential (primary) hypertension; E78.5 Hyperlipidemia, unspecified; I08.1 Rheumatic disorders of both mitral and tricuspid valves; E87.6 Hypokalemia; I49.3 Ventricular premature depolarization; I25.2 Old myocardial infarction; G25.81 Restless legs syndrome; F17.290 Nicotine dependence, other tobacco product, uncomplicated; Z79.891 Long term (current) use of opiate analgesic; Z79.899 Other long term (current) drug therapy; Z87.11 Personal history of peptic ulcer disease; Z86.010 Personal history of colon polyps; Z98.890 Other specified postprocedural states; Z87.01 Personal history of pneumonia (recurrent)
CPT/HCPCS: 71045; 71046; 80048; 80053; 80061; 80074; 81003; 82330; 82550; 82805; 83036; 83690; 83735; 83880; 84443; 84484; 85025; 85027; 85520; 85610; 85730; 86850; 86891; 86900; 86901; 86920; 87070; 87635; 93005; 93306; 93458; 93880; 93922; 93970; 94002; 94150; 94640; 94760; 96374; 96375; 99291